=== PATIENT | female | born 1940 | race Caucasian/White ===

== ENCOUNTER 2017-11-25 20:36 | Inpatient (IN) | payer OTHER ==
[2017-11-25] MEDS ORDERED: HEPARIN 5000 UNIT/ML 1 ML VIAL ONE (20:43)
[2017-11-25] MEDS ORDERED: ADENOSINE 6 MG/ 2ML VIAL IV ONE ×2 (20:44→20:46)
[2017-11-25] MEDS ORDERED: ONDANSETRON 4 MG/2 ML VIAL ONE (20:48)
[2017-11-25] MEDS ORDERED: MORPHINE 4 MG/ML SYR ONE (20:48)
[2017-11-25] MEDS ORDERED: VERAPAMIL HCL 5 MG/2 ML VIAL IV ONE (20:50)
[2017-11-25] MEDS ORDERED: NA CHLORIDE 0.9% 0 ML ONE (20:54)
[2017-11-25] MEDS ORDERED: MIDAZOLAM HCL 2 MG/2 ML INJ ONE (20:56)
[2017-11-25 20:57] LABS: Absolute Lymphocytes (CBC) 4.5 K/uL (0.7-4.9); Absolute Neutrophil 4.5 K/uL (1.8-8.0); Basophils % 0.6 % (0-1.3); Eosinophils % 1.3 % (0-4.4); Hematocrit 39.2 % (36.0-45.0); Lymphocytes % 44.2 % (15.3-44.8); MCH 31.3 pg (27.0-35.0); MCV 92.7 fL (80-100); MPV 8.3 fL (7.6-11.3); Monocytes % 9.9 % (3.3-12.3); RBC Red Blood Cell Count 4.23 M/uL (3.86-4.86)
[2017-11-25 21:03] LABS: Protime INR 0.95
[2017-11-25] MEDS ORDERED: METOPROLOL TARTRATE 5 MG/5 ML INJ IV ONE (21:03)
[2017-11-25] MEDS ORDERED: HEPARIN/D5W 25,000 UNIT/500 ML BAG IV ONE (21:16)
--- NOTE | 2017-11-25 21:22 | EDPHYS ---
Physician Documentation [facility] Name: Sherrell Palma Age: 77 yrs Sex: Female : 1940 Arrival Date: 11/25/2017 Time: 20:40 Bed 4 Private MD: ED Physician Gera Acosta HPI: 11/25 21:17 This 77 yrs old Female presents to ER via EMS with unknown complaint. pkl 21:17 The patient or guardian reports chest pain that is located primarily in the substernal pkl area. Onset: just prior to arrival, 1 hour(s) ago. The patient presents with a history of heart racing. Context: The symptoms occur at rest. Onset: The symptoms/episode began/occurred just prior to arrival, 1 hour(s) ago. The pain radiates to jaw. Historical: - Allergies: 21:05 Amoxicillin; bb 21:05 metformin; bb 21:05 Niacin; bb 21:05 WelChol; bb 21:05 Zocor; bb 21:05 PENICILLINS; bb - PMHx: 21:05 Hypertension; SVT; Diabetes - NIDDM; breast cancer; GERD; Hyperlipidemia; bb - PSHx: 21:05 R mastectomy; Thyroidectomy; bb - Immunization history:: Adult Immunizations unknown. - Social history:: Smoking status: unknown. - Ebola Screening: : No symptoms or risks identified at this time. ROS: 21:17 Eyes: Negative for injury, pain, redness, and discharge, ENT: Negative for injury, pkl pain, and discharge, Neck: Negative for injury, pain, and swelling. 21:17 Cardiovascular: Positive for chest pain, palpitations. 21:17 Respiratory: Negative for cough, shortness of breath. 21:17 Abdomen/GI: Negative for abdominal pain, nausea, vomiting, and diarrhea. 21:17 Back: Negative for acute changes. 21:17 : Negative for urinary symptoms. 21:17 MS/extremity: Negative for acute changes. 21:17 Skin: Negative for rash. 21:17 Neuro: Negative for altered mental status. Exam: 21:17 Head/Face: Normocephalic, atraumatic. Eyes: Pupils equal round and reactive to light, pkl extra-ocular motions intact. Lids and lashes normal. Conjunctiva and sclera are non-icteric and not injected. Cornea within normal limits. Periorbital areas with no swelling, redness, or edema. ENT: Nares patent. No nasal discharge, no septal abnormalities noted. Tympanic membranes are normal and external auditory canals are clear. Oropharynx with no redness, swelling, or masses, exudates, or evidence of obstruction, uvula midline. Mucous membranes moist. Neck: Trachea midline, no thyromegaly or masses palpated, and no cervical lymphadenopathy. Supple, full range of motion without nuchal rigidity, or vertebral point tenderness. No Meningismus. Chest/axilla: Normal chest wall appearance and motion. Nontender with no deformity. No lesions are appreciated. 21:17 Cardiovascular: Rate: tachycardic, actual rate is 178 bpm, Rhythm: regular. 21:17 ECG was reviewed by the Attending Physician. 21:17 Respiratory: the patient does not display signs of respiratory distress, Respirations: normal, Breath sounds: are clear throughout. 21:17 Abdomen/GI: Exam negative for acute changes. 21:17 Back: Exam negative for acute changes. 21:17 : Exam negative for acute changes. 21:17 Musculoskeletal/extremity: Exam is negative for acute changes. 21:17 Skin: Exam negative for rash. 21:17 Neuro: Orientation: is normal, Mentation: appropriate for stated age, Cranial nerves: grossly normal, Motor: is normal. Vital Signs: 20:40 BP 115 / 65; Pulse 178; Resp 22 S; Temp 97.8(O); Pulse Ox 94% on R/A; Weight 81.65 kg bb (R); Height 5 ft. 6 in. (167.64 cm) (R); 20:50 BP 97 / 76; Pulse 170; Resp 19; Pulse Ox 94% on 4 lpm NC; lp1 21:00 BP 135 / 82; Pulse 96; Resp 18; Pulse Ox 90% on 4 lpm NC; lp1 21:05 BP 144 / 104; Pulse 127; Resp 19; Pulse Ox 97% on 50% Venturi mask; lp1 21:15 BP 155 / 95; Pulse 80; Resp 19; Pulse Ox 100% on 50% Venturi mask; lp1 21:20 BP 137 / 80; Pulse 83; Resp 18; Pulse Ox 100% on 50% Venturi mask; lp1 21:40 Weight 68.04 kg; lp1 21:40 BP 149 / 78; Pulse 88; Resp 14; Pulse Ox 96% on 50% Venturi mask; lp1 22:03 BP 130 / 78; Pulse 88; Resp 17; Pulse Ox 98% on 50% Venturi mask; lp1 22:31 BP 154 / 86; Pulse 95; Resp 20; Pulse Ox 100% on 50% Venturi mask; lp1 21:40 Body Mass Index 24.21 (68.04 kg, 167.64 cm) lp1 MDM: 21:06 Patient medically screened. pkl 21:17 Data reviewed: vital signs, nurses notes, lab test result(s), EKG, radiologic studies, pkl plain films. 11/25 20:44 Order name: Basic Metabolic Panel; Complete Time: 22:06 cc 11/25 20:44 Order name: CBC with Diff; Complete Time: 21:07 cc 11/25 20:44 Order name: Ckmb; Complete Time: 22:06 cc 11/25 20:44 Order name: CPK; Complete Time: 22:06 cc 11/25 20:44 Order name: LFT's; Complete Time: 22: cc 11/25 20:44 Order name: Magnesium; Complete Time: 22:06 cc 11/25 20:44 Order name: NT PRO-BNP; Complete Time: 22:06 cc 11/25 20:44 Order name: PT-INR; Complete Time: 21:07 cc 11/25 20:44 Order name: Ptt, Activated; Complete Time: 21:07 cc 11/25 20:44 Order name: Troponin (emerg Dept Use Only); Complete Time: 21:22 cc 11/25 20:44 Order name: XRAY Chest (1 view) cc 11/25 21:02 Order name: TSH; Complete Time: 22:06 ms 11/25 21:46 Order name: ABG Arterial Blood Gas; Complete Time: 22:06 EDMS 11/25 22:34 Order name: Urine Dipstick--Ancillary (enter results) ms 11/25 20:44 Order name: EKG; Complete Time: 20:45 cc 11/25 20:44 Order name: Cardiac monitoring; Complete Time: 20:45 cc 11/25 20:44 Order name: EKG - Nurse/Tech; Complete Time: 20:45 cc 11/25 20:44 Order name: IV Saline Lock; Complete Time: 20:45 cc 11/25 20:44 Order name: Labs collected and sent; Complete Time: 20:45 cc 11/25 20:44 Order name: O2 Per Protocol; Complete Time: 20:45 cc 11/25 20:44 Order name: O2 Sat Monitoring; Complete Time: 20:44 cc 11/25 20:44 Order name: Urine Dipstick-Ancillary (obtain specimen); Complete Time: 22:32 cc 11/25 22:32 Order name: Herrera; Complete Time: 22:32 lp1 Administered Medications: 20:45 Drug: Adenosine 12 mg Route: IVP; Site: left antecubital; lp1 21:37 Follow up: Response: No change in condition lp1 20:47 Drug: Zofran 4 mg Route: IVP; Site: left antecubital; lp1 21:37 Follow up: Response: No adverse reaction lp1 20:47 Drug: morphine 2 mg Route: IVP; Site: left antecubital; lp1 21:38 Follow up: Response: No adverse reaction lp1 20:48 Drug: Verapamil 5 mg Route: IVP; Site: left antecubital; lp1 20:50 Follow up: Response: Marked relief of symptoms lp1 21:00 Drug: Lopressor 5 mg Route: IVP; Site: left antecubital; lp1 21:39 Follow up: Response: Marked relief of symptoms lp1 21:07 Drug: Heparin (VT-Bolus No thrombolytic) - HEParin 60 units/kg Route: IVP; Site: left lp1 antecubital; 21:44 Follow up: Response: No adverse reaction lp1 21:11 Drug: Heparin (VT Drip) 12 units/kg/hr - (HEParin 95436 units, D5W 500 ml) Route: IV; lp1 Rate: calculated rate; Site: left forearm; 21:44 Follow up: IV Status: Infusion continued upon admission lp1 Disposition: 21:17 Critical Care:. pkl Disposition: 11/25/17 21:22 Hospitalization ordered by Fariba Hanks for Inpatient Admission. Preliminary diagnosis is Chest pain. Supraventricular tachycardia. - Bed requested for Intensive Care Unit. - Status is Inpatient Admission. lp1 - Condition is Stable. - Problem is new. - Symptoms have improved. UTI on Admission? No Signatures: Dispatcher [employer] EDLiyah Rodriguez RN RN mw Lam, Pin, MD MD pkl Yue Alexandra, RN RN bb Kenia Johnston Ayla Kendall RN RN lp1 Corrections: (The following items were deleted from the chart) 21:41 21:22 Hospitalization Ordered by Fariba Hanks MD for Inpatient Admission. Preliminary mw diagnosis is Chest pain. Supraventricular tachycardia. Bed requested for Telemetry/MedSurg (Inpatient). Status is Inpatient Admission. Condition is Stable. Problem is new. Symptoms have improved. UTI on Admission? No. pkl 22:37 21:41 11/25/2017 21:22 Hospitalization Ordered by Fariba Hanks MD for Inpatient lp1 Admission. Preliminary diagnosis is Chest pain. Supraventricular tachycardia. Bed requested for Intensive Care Unit. Status is Inpatient Admission. Condition is Stable. Problem is new. Symptoms have improved. UTI on Admission? No. mw
--- NOTE | 2017-11-25 21:22 | ER ---
Nurse's Notes [facility] Name: Sherrell Palma Age: 77 yrs Sex: Female : 1940 Arrival Date: 11/25/2017 Time: 20:40 Bed 4 Private MD: Diagnosis: Chest pain. Supraventricular tachycardia Presentation: 11/25 20:40 Presenting complaint: EMS states: toned out for report of pt having palpitations, bb racing heart. Transition of care: patient was not received from another setting of care. Onset of symptoms was November 25, 2017. Risk Assessment: Do you want to hurt yourself or someone else? Patient reports no desire to harm self or others. Initial Sepsis Screen: Does the patient meet any 2 criteria? No. Patient's initial sepsis screen is negative. Does the patient have a suspected source of infection? No. Patient's initial sepsis screen is negative. 20:40 Method Of Arrival: EMS: [facility] bb 20:40 Acuity: LUCY 1 bb 20:59 Care prior to arrival: Medication(s) given: Adenosine, 6 mg, 12 mg, x 2, ASA, 325 mg, bb Normal saline infusion, 500 mL, IV initiated. 20 GA, in the left antecubital area. Historical: - Allergies: 21:05 Amoxicillin; bb 21:05 metformin; bb 21:05 Niacin; bb 21:05 WelChol; bb 21:05 Zocor; bb 21:05 PENICILLINS; bb - PMHx: 21:05 Hypertension; SVT; Diabetes - NIDDM; breast cancer; GERD; Hyperlipidemia; bb - PSHx: 21:05 R mastectomy; Thyroidectomy; bb - Immunization history:: Adult Immunizations unknown. - Social history:: Smoking status: unknown. - Ebola Screening: : No symptoms or risks identified at this time. Screenin:05 Abuse screen: Denies threats or abuse. Nutritional screening: No deficits noted. bb Tuberculosis screening: No symptoms or risk factors identified. 22:00 Fall Risk Total [place] Fall Scale indicates High Risk Score (45 or more points). Fall lp1 prevention measures have been instituted. Side Rails Up X 2 As available patient and family educated on Fall Prevention Program and Strategies. Assessment: 20:45 General: Appears distressed, Behavior is quiet. Pain: Complains of pain in chest. lp1 Neuro: Level of Consciousness is awake, lethargic, Oriented to person, place, situation. Cardiovascular: Reports chest pain, fatigue, nausea, palpitations, shortness of breath, Capillary refill < 3 seconds in bilateral fingers toes Rhythm is SVT. Respiratory: Reports shortness of breath Airway is patent Trachea midline Respiratory effort is even, Respiratory pattern is regular, Breath sounds are clear bilaterally. GI: Abdomen is obese. : No signs and/or symptoms were reported regarding the genitourinary system. EENT: No signs and/or symptoms were reported regarding the EENT system. Derm: Skin is intact, is thin, Skin is diaphoretic, Skin is pale. 21:30 Reassessment: Patient states " I feel exhausted"; states chest pain has decreased lp1 Patient states feeling better. Neuro: Level of Consciousness is awake, obeys commands. Respiratory: Respiratory effort is even, unlabored. Derm: Skin is intact, Skin is dry, Skin is normal. Musculoskeletal: Circulation, motion, and sensation intact. 22:30 Reassessment: Per Dr. Koehler, verbal order to discontinue heparin drip. Reassessment: lp1 Patient appears in no apparent distress at this time. Patient and/or family updated on plan of care and expected duration. Pain level reassessed. Patient aware of admission to ICU, continuing to states "I feel so exhausted". Vital Signs: 20:40 BP 115 / 65; Pulse 178; Resp 22 S; Temp 97.8(O); Pulse Ox 94% on R/A; Weight 81.65 kg bb (R); Height 5 ft. 6 in. (167.64 cm) (R); 20:50 BP 97 / 76; Pulse 170; Resp 19; Pulse Ox 94% on 4 lpm NC; lp1 21:00 BP 135 / 82; Pulse 96; Resp 18; Pulse Ox 90% on 4 lpm NC; lp1 21:05 BP 144 / 104; Pulse 127; Resp 19; Pulse Ox 97% on 50% Venturi mask; lp1 21:15 BP 155 / 95; Pulse 80; Resp 19; Pulse Ox 100% on 50% Venturi mask; lp1 21:20 BP 137 / 80; Pulse 83; Resp 18; Pulse Ox 100% on 50% Venturi mask; lp1 21:40 Weight 68.04 kg; lp1 21:40 BP 149 / 78; Pulse 88; Resp 14; Pulse Ox 96% on 50% Venturi mask; lp1 22:03 BP 130 / 78; Pulse 88; Resp 17; Pulse Ox 98% on 50% Venturi mask; lp1 22:31 BP 154 / 86; Pulse 95; Resp 20; Pulse Ox 100% on 50% Venturi mask; lp1 21:40 Body Mass Index 24.21 (68.04 kg, 167.64 cm) lp1 ED Course: 20:30 Maintain EMS IV. Dressing intact. Good blood return noted. Site clean \\T\\ dry. Gauge \\T\\ lp 1 site: 20 g Left AC. 20:40 Patient arrived in ED. bb 20:40 Arm band placed on Patient placed in an exam room, on a stretcher, on oxygen, on bb satellite project site monitor, on pulse oximetry. EKG completed in triage. Results shown to MD. 20:40 Patient has correct armband on for positive identification. Placed in gown. Bed in low bb position. Side rails up X2. awake overnight monitor on. Pulse ox on. NIBP on. 20:55 Triage completed. bb 21:03 X-ray completed. Portable x-ray completed in exam room. Patient tolerated procedure ag1 well. 21:04 XRAY Chest (1 view) In Process Unspecified. EDMS 21:06 Gera Acosta MD is Attending Physician. pkl 21:10 Inserted saline lock: 20 gauge in left forearm, using aseptic technique. lp1 21:21 Fariba Hanks MD is Hospitalizing Provider. pkl 21:35 Ayla Kendall, EDDY is Primary Nurse. lp1 21:51 No provider procedures requiring assistance completed. Patient admitted, IV remains in lp1 place. 22:29 Herrera cath inserted, using sterile technique, 16 Fr., by ks, balloon inflated, to lp1 gravity drainage, urine specimen collected. Administered Medications: 20:45 Drug: Adenosine 12 mg Route: IVP; Site: left antecubital; lp1 21:37 Follow up: Response: No change in condition lp1 20:47 Drug: Zofran 4 mg Route: IVP; Site: left antecubital; lp1 21:37 Follow up: Response: No adverse reaction lp1 20:47 Drug: morphine 2 mg Route: IVP; Site: left antecubital; lp1 21:38 Follow up: Response: No adverse reaction lp1 20:48 Drug: Verapamil 5 mg Route: IVP; Site: left antecubital; lp1 20:50 Follow up: Response: Marked relief of symptoms lp1 21:00 Drug: Lopressor 5 mg Route: IVP; Site: left antecubital; lp1 21:39 Follow up: Response: Marked relief of symptoms lp1 21:07 Drug: Heparin (MT-Bolus No thrombolytic) - HEParin 60 units/kg Route: IVP; Site: left lp1 antecubital; 21:44 Follow up: Response: No adverse reaction lp1 21:11 Drug: Heparin (MT Drip) 12 units/kg/hr - (HEParin 34547 units, D5W 500 ml) Route: IV; lp1 Rate: calculated rate; Site: left forearm; 21:44 Follow up: IV Status: Infusion continued upon admission lp1 Outcome: 21:22 Decision to Hospitalize by Provider. pkl 21:51 Instructed on the need for admit. lp1 22:00 critical lp1 22:31 Admitted to ICU accompanied by nurse, accompanied by tech, via stretcher, room 7, with lp1 oxygen, on monitor, with chart, Report called to EDDY Pacheco 22:37 Patient left the ED. lp1 Signatures: Dispatcher [employer] EDGera Burciaga MD MD pkYue Sharpe, EDDY RN Ayla Perdomo RN RN lp1 Daisy Hardwick 1
[2017-11-25 21:27] LABS: ALT/SGPT 21 U/L (12-78); AST/SGOT 22 U/L (15-37); Albumin 3.6 g/dL (3.4-5.0); Alkaline Phosphatase 101 U/L (45-117); BUN Blood Urea Nitrogen 29 mg/dL (7-18); Bicarbonate 26 mmol/L (21-32); Bilirubin Direct < 0.1 mg/dL (0-0.2); Bilirubin Total 0.3 mg/dL (0.2-1.0); CKMB Creatine Kinase MB < 1.0 ng/mL (0.3-3.6); Creatine Phosphokinase 47 U/L (26-192); Glucose Level 271 mg/dL (74-106); Magnesium 1.8 mg/dL (1.8-2.4); NT PRO-BNP 152 pg/mL (<450); Potassium 4.6 mmol/L (3.5-5.1); Protein, Total 7.8 g/dL (6.4-8.2); Sodium Level 139 mmol/L (136-145)
[2017-11-25 21:43] LABS: Blood Gas Oxyhemoglobin 95.5 % (94-97); Blood O2 Saturation 97.5 % (92-98.5)
--- NOTE | 2017-11-25 21:59 | P.HP ---
Certification for Inpatient Patient admitted to: Inpatient With expected LOS: >2 Midnights Practitioner: I am a practitioner with admitting privileges, knowledge of patient current condition, hospital course, and medical plan of care. Services: Services provided to patient in accordance with Admission requirements found in Title 42 Section 412.3 of the Code of Federal Regulations Patient History Date of Service: 11/25/17 Reason for admission: SVT, Subendocardic ischemia History of Present Illness: Ms Palma is a 77 years old woman with history of HTN, breast cancer, DM II, SVT epoisode in 2014, had a negative NM stress test at that time, who started this morning with recurrent episodes of palpitation, which were self limited. 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 Then she called 911, EMS found the patient tachycardic, subsequently she was transferred to ED. EKG showed SVT at 178 bpm. She had failed attempt to convert with 6 mg and then 12 mg of adenosine. Also tried metoprolol I but was unsuccessful. Finally she got successfully cardioverted, obtaining SR at 80's bpm. Initial trop I is negative. Her chest pain improved after CV. However, EKG port CV is remarkable for ST depression in inferolateral leads. Allergies amoxicillin Allergy (Mild, Verified 11/15/14 17:10) Hives/Rash colesevelam HCl [From WelChol] Allergy (Mild, Verified 11/15/14 17:10) diarrhea niacin Allergy (Mild, Verified 11/15/14 17:10) Nausea/Vomiting Penicillins Allergy (Mild, Verified 11/15/14 17:06) Hives/Rash simvastatin [From Zocor] Allergy (Mild, Verified 11/15/14 17:10) generalized pain Home medications list reviewed: Yes Home Medications: Glimepiride 4 mg PO BID 11/15/14 Loperamide [Imodium*] 2 mg PO PRN PRN 11/15/14 Metoprolol Succinate [Toprol Xl] 50 mg PO BID 11/15/14 Olmesartan Medoxomil [Benicar] 40 mg PO DAILY 11/15/14 - Past Medical/Surgical History Diabetic: Yes -: NIDDM -: A-FIB -: CANCER- RIGHT BREAST -: HYPERTENSION -: SHANE -: HYSTERECTOMY -: R SIDE MASTECTOMY -: APPENDECTOMY -: R EYE CATARACT SX -: PARTIAL THYROID REMOVAL - Family History Mother -: Heart disease Notes: unknown heart condition- was in her 80s when she . - Social History Smoking Status: Never smoker Alcohol use: No CD- Drugs: No Caffeine use: Yes Place of Residence: Home Review of Systems 10-point ROS is otherwise unremarkable Physical Examination - Physical Exam General: Alert, In no apparent distress HEENT: Atraumatic, PERRLA, Mucous membr. moist/pink, EOMI, Sclerae nonicteric Neck: Supple, 2+ carotid pulse no bruit, No LAD, Without JVD or thyroid abnormality Respiratory: Clear to auscultation bilaterally, Normal air movement Cardiovascular: Regular rate/rhythm, Normal S1 S2 Gastrointestinal: Normal bowel sounds, No tenderness Musculoskeletal: No tenderness Integumentary: No rashes Neurological: Normal speech, Normal strength at 5/5 x4 extr, Normal tone, Normal affect Lymphatics: No axilla or inguinal lymphadenopathy - Studies Laboratory Data (last 24 hrs) 11/25/17 20:35: PT 11.2, INR 0.95, APTT 25.0 11/25/17 20:35: WBC 10.2, Hgb 13.2, Hct 39.2, Plt Count 252 11/25/17 20:35: Sodium 139, Potassium 4.6, BUN 29 H, Creatinine 1.20, Glucose 271 H, Magnesium 1.8, Total Bilirubin 0.3, AST 22, ALT 21, Alkaline Phosphatase 101 Assessment and Plan - Problems (Diagnosis) (1) Subendocardial ischemia Current Visit: Yes Status: Acute (2) HTN (hypertension) Current Visit: Yes Status: Acute Qualifiers: Hypertension type: essential hypertension Qualified Code(s): I10 - Essential (primary) hypertension (3) Diabetes mellitus Current Visit: Yes Status: Acute Qualifiers: Diabetes mellitus type: type 2 Diabetes mellitus usp insulin use: without usp use Diabetes mellitus complication status: with unspecified complications Qualified Code(s): E11.8 - Type 2 diabetes mellitus with unspecified complications (4) SVT (supraventricular tachycardia) Current Visit: Yes Status: Acute - Plan The patient will be admitted to ICU for close monitoring, due to SVT with subendocardic ischemia. Will start full anticoagulation, double antiplatelets treatment, beta jennifer, PRANEETH inhibitors. Consult Cardiology team for evaluation and recommendations. - Advance Directives Does patient have a Living Will: No Does patient have a Durable POA for Healthcare: No - Code Status/Comfort Care Code Status Assessed: Yes Code Status: Full Code
[2017-11-25] MEDS ORDERED: D50W 25 GM/50 ML SYRINGE IV PRN (22:05)
[2017-11-25] MEDS ORDERED: GLUCAGON 1 MG/VIAL IM PRN (22:05)
[2017-11-25 22:58] LABS: Urine Blood NEGATIVE (NEG); Urine Glucose 2+ (NEG); Urine Protein NEGATIVE (NEG)
[2017-11-25] MEDS: INSULIN -REGULAR HUMAN 50 UNIT/0.5 ML ML SQ SCH (23:50)
[2017-11-26] MEDS: NITROGLYCERIN 0.4 MG/TAB SL PRN ×3 (01:40→01:51)
[2017-11-26] MEDS: INSULIN -REGULAR HUMAN 50 UNIT/0.5 ML ML SQ SCH ×3 (06:00→17:54)
--- NOTE | 2017-11-26 06:49 | EKG ---
Test Date: 2017-11-25 Test Time: 20:32:46 Iron Cutter: ALFONSO MEASUREMENT RESULTS: Intervals: Rate: 180 FL: QRSD: 80 QT: 258 QTc: 446 Onward: P: FL: QRS: 20 T: 131 INTERPRETIVE STATEMENTS: Supraventricular tachycardia ST elevation, consider inferior injury or acute infarct ACUTE [place] Abnormal ECG Compared to ECG 11/16/2014 08:58:03 ST (T wave) deviation now present Myocardial infarct finding now present Sinus rhythm no longer present Electronically Signed On 11-26-17 06:48:17 CDT by Galo Razo
--- NOTE | 2017-11-26 07:10 | RAD REPORT ---
EXAM DESCRIPTION: RAD - Chest Single View - 11/25/2017 9:05 pm CLINICAL HISTORY: Chest pain, cardiac arrhythmia COMPARISON: November 2010 TECHNIQUE: AP portable chest image was obtained 2051 hours . FINDINGS: Shallow inspiration accentuates vasculature and lung markings. No focal infiltrate or sign ificant pulmonary edema seen. No significant failure or volume overload. Resuscitation paddles overli e the chest. Heart and vasculature are normal. No measurable pleural effusion and no pneumothorax. In creased density medial left apex is believed to be artifact of rotation. No acute aortic findings olga pected. IMPRESSION: Shallow inspiration exam without a significant cardiopulmonary finding. Exam is limited by rotation, supine positioning and shallow inspiration.
[2017-11-26] MEDS: METOPROLOL XL 50 MG TAB PO SCH ×2 (08:32→22:43)
[2017-11-26] MEDS: VALSARTAN 80 MG TAB PO SCH (08:35)
[2017-11-26] MEDS: TICAGRELOR 90 MG TABLET PO SCH ×2 (08:35→20:43)
[2017-11-26] MEDS ORDERED: VALSARTAN 160 MG TAB PO SCH (09:00)
[2017-11-26] MEDS ORDERED: LISINOPRIL 10 MG TAB PO SCH (09:00)
[2017-11-26] MEDS ORDERED: ASPIRIN 325 MG TAB PO SCH (09:00)
[2017-11-26] MEDS ORDERED: ENOXAPARIN 80 MG/0.8 ML SQ SCH (09:00)
[2017-11-26] MEDS: ONDANSETRON 4 MG/2 ML VIAL IV PRN ×2 (09:12→16:09)
[2017-11-26] MEDS: ACETAMINOPHEN 325 MG TABLET PO PRN ×3 (09:12→20:52)
[2017-11-26] MEDS: ASPIRIN 81 MG CHEWABLE TABLET PO SCH (09:13)
[2017-11-26] MEDS ORDERED: HYDRALAZINE HCL 20 MG/ML VIAL IV PRN (10:17)
[2017-11-26] MEDS: ENOXAPARIN 80 MG/0.8 ML SQ SCH ×2 (10:28→20:44)
--- NOTE | 2017-11-26 10:29 | EKG ---
Test Date: 2017-11-25 Test Time: 21:31:02 Supervisor Cigar Processing: MEASUREMENT RESULTS: Intervals: Rate: 86 [place]: 234 QRSD: 86 QT: 400 QTc: 478 [place]: P: 43 [place]: 234 QRS: -50 T: 17 INTERPRETIVE STATEMENTS: Sinus rhythm with 1st degree AV block Left anterior fascicular block Possible Anterior infarct, age undetermined Marked ST abnormality, possible inferolateral subendocardial injury Abnormal ECG Compared to ECG 11/25/2017 20:32:46 First degree AV block now present Left anterior fascicular block now present Supraventricular tachycardia no longer present Myocardial infarct finding still present ST (T wave) deviation still present Electronically Signed On 11-26-17 10:28:16 CDT by Galo Razo
--- NOTE | 2017-11-26 11:40 | CON ---
Identification: A 77-year-old woman. Chief Complaint: Chest pain. History Of Present Illness: Ms. Palma ran out of medicines. She went into a rapid heart rate. She was found to have SVT or perhaps atrial flutter with 2:1 conduction. Heart rate was 170. There wer e marked ST changes including ST elevation in II, III, and AVF. Presently today she is having a head ache. No chest pain. Her arrhythmia resolved with beta blockers and adenosine. She is in sinus rhy thm now. No longer having chest pain. Her troponins are very elevated 8.86, 21.5. Ms. Palma has n ot had a heart catheterization before. No known heart disease. She has underlying diabetes, hyperte nsion, dyslipidemia. She does not use tobacco. She is definitely a candidate for CAD. Medications: Her outpatient medications have been metoprolol, Benicar, glimepiride, and loperamide. She apparently ran out of all of these medicines 2 weeks before this admission. Physical Examination: Vital Signs: 4 feet 11 inches, 177 pounds. HEENT: Unremarkable. Lungs: Clear. Heart: Regular rate and rhythm. An EKG today does not show ST elevation. It shows sinus rhythm. She is presently receiving Brilinta, valsartan, nitroglycerin, metoprolol, enoxaparin, aspirin. Impression: The patient just has had an myocardial infarction, may be from fixed coronary artery dis ease with a very rapid heart rate from the arrhythmia. It may be all from the arrhythmia. She needs to have a cardiac cath tomorrow. She seems to understand the procedure, potential benefits, indications, ris ks, and agrees to proceed. BRENDA/RADHA Voice ID: [id number] Report ID: [id number]
--- NOTE | 2017-11-26 12:11 | P.PN ---
Subjective Date of Service: 11/26/17 Chief Complaint: SVT, Subendocardic ischemia she is still havimng mild chest discomfort, no SOB Physical Examination - Vital Signs Temperature: 97.7 F Blood Pressure: 192/82 Pulse: 73 Respirations: 18 Pulse Ox (%): 99 - Physical Exam General: Alert, In no apparent distress HEENT: Atraumatic, PERRLA, EOMI Neck: Supple, JVD not distended Respiratory: Clear to auscultation bilaterally, Normal air movement Cardiovascular: Regular rate/rhythm, Normal S1 S2 Gastrointestinal: Normal bowel sounds, No tenderness Musculoskeletal: No tenderness Integumentary: No rashes Neurological: Normal speech, Normal tone, Normal affect Lymphatics: No axilla or inguinal lymphadenopathy - Studies Laboratory Data (last 24 hrs) 11/25/17 20:35: PT 11.2, INR 0.95, APTT 25.0 11/25/17 20:35: WBC 10.2, Hgb 13.2, Hct 39.2, Plt Count 252 11/25/17 20:35: Sodium 139, Potassium 4.6, BUN 29 H, Creatinine 1.20, Glucose 271 H, Magnesium 1.8, Total Bilirubin 0.3, AST 22, ALT 21, Alkaline Phosphatase 101 Medications List Reviewed: Yes Assessment And Plan - Current Problems (Diagnosis) (1) Subendocardial ischemia Onset Date: 11/26/17 Current Visit: Yes Status: Acute (2) Diabetes mellitus Onset Date: 11/26/17 Current Visit: Yes Status: Acute Qualifiers: Diabetes mellitus type: type 2 Diabetes mellitus longterm insulin use: without longterm use Diabetes mellitus complication status: with unspecified complications Qualified Code(s): E11.8 - Type 2 diabetes mellitus with unspecified complications (3) HTN (hypertension) Onset Date: 11/26/17 Current Visit: Yes Status: Acute Qualifiers: Hypertension type: essential hypertension Qualified Code(s): I10 - Essential (primary) hypertension (4) SVT (supraventricular tachycardia) Onset Date: 11/26/17 Current Visit: Yes Status: Acute (5) Afib Onset Date: 11/16/14 Current Visit: No Status: Acute (6) Chest pain Onset Date: 11/16/14 Current Visit: No Status: Acute - Plan She seems to have VT PLANS: --ASA --Full dose Lovenex --Beta blockers/PRANEETH-I --Cons Dr Razo --Cath tomorrow per Dr Razo
--- NOTE | 2017-11-26 12:15 | ECHO ---
HEIGHT: 4 ft 11 in WEIGHT: 177 lb 8 oz DATE OF STUDY: 11/26/[address]: Fariba Koehler MD 2-DIMENSIONAL: YES M.MODE: YES DOPPLER: YES COLOR FLOW: YES TDS: NO PORTABLE: YES DEFINITY: NO BUBBLE STUDY: NO DIAGNOSIS: SUBENDOCARDIAC ISCHEMIA CARDIAC HISTORY: CATHERIZATION: NO SURGERY: NO PROSTHETIC VALVE: NO PACEMAKER: NO MEASUREMENTS (cm) DIASTOLIC (NORMALS) SYSTOLIC (NORMALS) IVSd 1.0 (0.6-1.2) LA Diam 3.5 (1.9-4.0) LVEF 61% LVIDd 3.4 (3.5-5.7) LVIDs 2.3 (2.0-3.5) %FS 32% LVPWd 1.0 (0.6-1.2) Ao Diam 2.8 (2.0-3.7) 2 DIMENSIONAL ASSESSMENT: RIGHT ATRIUM: NORMAL LEFT ATRIUM: NORMAL RIGHT VENTRICLE: NORMAL LEFT VENTRICLE: NORMAL TRICUSPID VALVE: NORMAL MITRAL VALVE: NORMAL PULMONIC VALVE: NORMAL AORTIC VALVE: NORMAL PERICARDIAL EFFUSION: NONE AORTIC ROOT: NORMAL LEFT VENTRICULAR WALL MOTION: NORMAL DOPPLER/COLOR FLOW: TRACE TRICUSPID REGURGITATION. NORMAL VENTRICULAR SIZE AND FUNCTION. COMMENTS: NORMAL LEFT VENTRICLAR SIZE AND FUNCTION. NO WALL MOTION ABNORMALITY. TRACE TRICUSPID REGURGITATION. NORMAL VENTRICULAR SIZE AND FUNCTION. TECHNOLOGIST: Jo Ann MCFADDEN
--- NOTE | 2017-11-26 20:31 | EKG ---
Test Date: 2017-11-26 Test Time: 09:59:14 Power Plant Installer: SERGIO MEASUREMENT RESULTS: Intervals: Rate: 67 [place]: 154 QRSD: 72 QT: 434 QTc: 458 [place]: P: 45 [place]: 154 QRS: -13 T: 36 INTERPRETIVE STATEMENTS: Normal sinus rhythm Normal ECG Compared to ECG 11/25/2017 21:31:02 First degree AV block no longer present Left anterior fascicular block no longer present Myocardial infarct finding no longer present ST (T wave) deviation no longer present Electronically Signed On 11-26-17 20:30:19 CDT by Galo Razo
[2017-11-27] MEDS: INSULIN -REGULAR HUMAN 50 UNIT/0.5 ML ML SQ SCH ×4 (06:00→17:04)
[2017-11-27] MEDS: METOPROLOL XL 50 MG TAB PO SCH ×2 (07:59→21:22)
[2017-11-27] MEDS: ONDANSETRON 4 MG/2 ML VIAL IV PRN (07:59)
[2017-11-27] MEDS: VALSARTAN 80 MG TAB PO SCH (08:00)
[2017-11-27] MEDS: ASPIRIN 81 MG CHEWABLE TABLET PO SCH (08:31)
[2017-11-27] MEDS: TICAGRELOR 90 MG TABLET PO SCH ×2 (08:32→21:22)
[2017-11-27] MEDS: ENOXAPARIN 80 MG/0.8 ML SQ SCH (08:45)
[2017-11-27] MEDS: ACETAMINOPHEN 325 MG TABLET PO PRN (09:34)
[2017-11-27] MEDS ORDERED: HEPA 1000U/500MLS 1,000 UNIT/500 ML BAG IV ONE (10:01)
[2017-11-27] MEDS ORDERED: LIDOCAINE 1% MPF 2 ML AMPULE ONE (10:01)
[2017-11-27] MEDS ORDERED: NA CHLORIDE 0.9% 500 ML ONE (10:30)
[2017-11-27] MEDS ORDERED: ATROPINE SULF 1 MG/10 ML SYR IV ONE (10:30)
[2017-11-27] MEDS ORDERED: FENTANYL CITR 100 MCG/2 ML ONE (10:31)
[2017-11-27] MEDS ORDERED: MIDAZOLAM HCL 2 MG/2 ML INJ ONE (10:31)
[2017-11-27] MEDS ORDERED: NA CHLORIDE 0.9% 50 ML ONE (10:31)
[2017-11-27] MEDS ORDERED: PRASUGREL (EFFIENT) 10 MG TAB ONE (11:29)
[2017-11-27] MEDS ORDERED: ASPIRIN 325 MG TAB ONE (11:29)
--- NOTE | 2017-11-27 12:44 | P.PN ---
Subjective Date of Service: 11/27/17 Chief Complaint: SVT, Subendocardic ischemia Patient seen and examined at bedside with RN. Chart reviewed. Case discussed with cardiology at this time. Patient is awaiting cardiac catheterization today. Will followup post procedure. Patient denies having any chest pain shortness of breath or nausea vomiting at this time. Review of Systems General: As per HPI Physical Examination - Vital Signs Temperature: 97.9 F Blood Pressure: 165/98 Pulse: 55 Respirations: 12 Pulse Ox (%): 97 - Physical Exam General: Alert, In no apparent distress HEENT: Atraumatic, PERRLA, EOMI Neck: Supple, JVD not distended Respiratory: Clear to auscultation bilaterally, Normal air movement Cardiovascular: Regular rate/rhythm, Normal S1 S2 Gastrointestinal: Normal bowel sounds, No tenderness Musculoskeletal: No tenderness Integumentary: No rashes Neurological: Normal speech, Normal tone, Normal affect Lymphatics: No axilla or inguinal lymphadenopathy - Studies Medications List Reviewed: Yes Assessment & Plan - Problems (Diagnosis) (1) Subendocardial ischemia Onset Date: 11/26/17 Current Visit: Yes Status: Acute Plan: Patient with elevated Troponin and ST depression. -Cardiology consulted. Reccs appreciated -Scheduled for Cardiac Cath today -ECHO WNL -On BB, Statin, ASA, Lovenox and pt takes Brilinta at home as well. -Will f,u with patient Post procedure (2) SVT (supraventricular tachycardia) Onset Date: 11/26/17 Current Visit: Yes Status: Resolved Plan: S.P Resolution after Cardioversion -Will continue to monitor (3) Diabetes mellitus Onset Date: 11/26/17 Current Visit: Yes Status: Chronic Qualifiers: Diabetes mellitus type: type 2 Diabetes mellitus terminal carman insulin use: without custodial use Diabetes mellitus complication status: with unspecified complications Qualified Code(s): E11.8 - Type 2 diabetes mellitus with unspecified complications (4) HTN (hypertension) Onset Date: 11/26/17 Current Visit: Yes Status: Chronic Qualifiers: Hypertension type: essential hypertension Qualified Code(s): I10 - Essential (primary) hypertension (5) Afib Onset Date: 11/16/14 Current Visit: No Status: Chronic Qualifiers: Atrial fibrillation type: chronic Qualified Code(s): I48.2 - Chronic atrial fibrillation Discharge Plan: Home Plan to discharge in: 24 Hours - Code Status/Comfort Care Code Status Assessed: Yes Critical Care: Yes Assessment/Plan - Assessment/Plan Assessment: 77-year-old female admitted to the hospital for subendocardial ischemia. Cardiology consulted. Patient awaiting cardiac catheterization today. Plan: Will monitor patient closely. Will follow up post cardiac catheterization. Most likely patient discharge in next 24-48 hr depending on the results from heart catheterization.
[2017-11-27] MEDS ORDERED: ACETAMINOPHEN 325 MG TABLET PO PRN ×2 (13:23→14:00)
[2017-11-27] MEDS ORDERED: NA CHLORIDE 0.9% 1,000 ML IV SCH (14:00)
--- NOTE | 2017-11-27 23:00 | OP ---
Surgeon: Donal Zapien MD Access Clinician: Toño Magaña. History: Admitted to Dr. Soto's service. The patient had been admitted with SVT that had resolved, positive troponin. A catheterization was planned for today. The patient was brought into the labor relations consultant for heart catheterization and underwent selective coronary artery angiogram, left heart catheteri zation, and a primary stent of the proximal circumflex. Indication: Elevated troponin, subendocardial MD. Procedure In Detail: The patient was prepped and draped in the routine sterile fashion, given 2 mg o f Versed for IV sedation. A 6-Citizen [place] sheath was introduced in the right common femoral artery. A 6- [place] catheter of Claude was used on the left side. We used a 3.5 Claude 6-Citizen [place] to cannulate th e left main. She was found to have a 90% proximal circumflex. I had to use a modified Amplatz to ca nnulate the right coronary artery that was completely occluded. An XB3.0 with side-hole guide cathet er was used to cannulate the left main. A Harvey wire 0.14 exchanged. Extra-support was used to public health microbiologist ss the lesion. A 2.5 x 12 Synergy stent at 14 atmosphere was placed with 0% residual. Complications: There were no complications. Estimated Blood Loss: Blood loss was 5 cc. Sedation: Total conscious sedation was 45 minutes. Medications: The patient received Angiomax during the procedure, aspirin, as well as Effient 60 mg. Final Diagnoses: Coronary artery disease, total RCA; minimal coronary artery disease in the LAD; 90% circumflex stenosis, status post stent. Plan: Plan is to continue medical therapy including statin and Effient. She will probably be going home tomorrow. SKYLA/RADHA Voice ID: [id number] Report ID: [id number]
[2017-11-28 05:16] LABS: Absolute Lymphocytes (CBC) 1.7 K/uL (0.7-4.9); Absolute Monocytes 0.9 K/uL (0.1-1.3); Absolute Neutrophil 4.8 K/uL (1.8-8.0); Basophils % 0.5 % (0-1.3); Eosinophils % 1.4 % (0-4.4); Hematocrit 38.6 % (36.0-45.0); Lymphocytes % 22.3 % (15.3-44.8); MCH 31.6 pg (27.0-35.0); MCV 90.9 fL (80-100); MPV 7.8 fL (7.6-11.3); Monocytes % 11.7 % (3.3-12.3); RBC Red Blood Cell Count 4.25 M/uL (3.86-4.86)
[2017-11-28] MEDS ORDERED: DOXAZOSIN 2 MG TAB PO SCH (09:00)
[2017-11-28] MEDS ORDERED: LOSARTAN POTASSIUM 50 MG TABLET PO SCH (09:00)
[2017-11-28 09:19] LABS: Potassium 4.2 mmol/L (3.5-5.1)
[2017-11-28 09:20] VITALS: BMI 35.3
[2017-11-28] MEDS: METOPROLOL XL 50 MG TAB PO SCH (09:49)
[2017-11-28] MEDS: ASPIRIN 81 MG CHEWABLE TABLET PO SCH (09:49)
[2017-11-28] MEDS: TICAGRELOR 90 MG TABLET PO SCH (09:49)
[2017-11-28] MEDS: INSULIN -REGULAR HUMAN 50 UNIT/0.5 ML ML SQ SCH ×2 (11:37)
--- NOTE | 2017-11-28 11:44 | P.DS ---
Admission Date: 11/25/17 Discharge Date: 11/28/17 Disposition: ROUTINE DISCHARGE Discharge Condition: GOOD Reason for Admission: SVT, Subendocardic ischemia - Problems (1) Subendocardial ischemia Onset Date: 11/26/17 Current Visit: Yes Status: Acute (2) SVT (supraventricular tachycardia) Onset Date: 11/26/17 Current Visit: Yes Status: Resolved (3) Diabetes mellitus Onset Date: 11/26/17 Current Visit: Yes Status: Chronic Qualifiers: Diabetes mellitus type: type 2 Diabetes mellitus fpc insulin use: without fpc use Diabetes mellitus complication status: with unspecified complications Qualified Code(s): E11.8 - Type 2 diabetes mellitus with unspecified complications (4) HTN (hypertension) Onset Date: 11/26/17 Current Visit: Yes Status: Chronic Qualifiers: Hypertension type: essential hypertension Qualified Code(s): I10 - Essential (primary) hypertension (5) Afib Onset Date: 11/16/14 Current Visit: No Status: Chronic Qualifiers: Atrial fibrillation type: chronic Qualified Code(s): I48.2 - Chronic atrial fibrillation Brief History of Present Illness: Ms Palma is a 77 years old woman with history of HTN, breast cancer, DM II, SVT epoisode in 2014, had a negative NM stress test at that time, who started this morning with recurrent episodes of palpitation, which were self limited. The last one was about 1 hour [employer]NA ARCHITECT, it was longer than previous one, then she start having substernal chest pain, pressure like, 7-8 of intensity, associated with nausea, radiated to her jaw. Then she called 911, EMS found the patient tachycardic, subsequently she was transferred to ED. EKG showed SVT at 178 bpm. She had failed attempt to convert with 6 mg and then 12 mg of adenosine. Also tried metoprolol I but was unsuccessful. Finally she got successfully cardioverted, obtaining SR at 80's bpm. Initial trop I is negative. Her chest pain improved after CV. However, EKG port CV is remarkable for ST depression in inferolateral leads. Hospital Course: Overall during the hospital stay patient remained stable Patient was initially admitted to the hospital after she was found to have chest pain along with supraventricular tachycardia. Patient was cardioverted slowly in the ER and was then admitted to the ICU for further care. In the ICU patient was noted to have troponin that were elevated with the EKG changes as well. Cardiology was consulted who recommended the patient get a heart catheterization done here in the hospital. Patient had a heart catheterization done and was found to have occlusion in the right pain artery and had a stent placement patient had its severe arthrosclerotic disease in the coronary arteries ever the arteries were patent and the blood flow was not compromise. Patient did well postprocedure and remained chest pain-free for the next 24 hr. At that time patient was recommended to be discharged home under stable condition and was asked to continue taking the metoprolol, losartan, Cardura, and AST and along with aspirin. Patient was asked to stop taking of Alzheimer and due to the recent recall for the medication. Patient was asked to follow up with the primary care doctor for further management if needed for her hypertension. Patient remained off Lotensin here in the hospital without the valsartan. Patient demonstrated understand and thus was discharged home under stable condition. Patient was also asked to follow up with cardiology in about 1-2 weeks post discharge and was asked to take low cholesterol diet along with low-sodium diet as well. Vital Signs/Physical Exam: Temp Pulse Resp BP Pulse Ox 97.6 F 78 18 129/89 95 11/28/17 04:00 11/28/17 09:49 11/28/17 06:00 11/28/17 09:49 11/28/17 06:00 General: Alert, In no apparent distress HEENT: Atraumatic, PERRLA, EOMI Neck: Supple, JVD not distended Respiratory: Clear to auscultation bilaterally, Normal air movement Cardiovascular: Regular rate/rhythm, Normal S1 S2 Gastrointestinal: Normal bowel sounds, No tenderness Musculoskeletal: No tenderness Integumentary: No rashes Neurological: Normal speech, Normal tone, Normal affect Lymphatics: No axilla or inguinal lymphadenopathy Laboratory Data at Discharge: WBC 7.5 K/uL (4.3-10.9) D 11/28/17 04:51 Hgb 13.4 g/dL (12.0-15.0) 11/28/17 04:51 Hct 38.6 % (36.0-45.0) 11/28/17 04:51 Plt Count 235 K/uL (152-406) 11/28/17 04:51 PT 11.2 SECONDS (9.5-12.5) 11/25/17 20:35 INR 0.95 11/25/17 20:35 APTT 25.0 SECONDS (24.3-36.9) 11/25/17 20:35 Sodium 137 mmol/L (136-145) 11/28/17 04:51 Potassium 4.2 mmol/L (3.5-5.1) 11/28/17 04:51 BUN 19 mg/dL (7-18) H 11/28/17 04:51 Creatinine 1.00 mg/dL (0.55-1.3) 11/28/17 04:51 Glucose 173 mg/dL (74-106) H 11/28/17 04:51 Magnesium 1.8 mg/dL (1.8-2.4) 11/25/17 20:35 Total Bilirubin 0.3 mg/dL (0.2-1.0) 11/25/17 20:35 AST 22 U/L (15-37) 11/25/17 20:35 ALT 21 U/L (12-78) 11/25/17 20:35 Alkaline Phosphatase 101 U/L (45-117) 11/25/17 20:35 Troponin I 6.93 ng/mL (0.0-0.045) H* 11/26/17 16:03 Triglycerides 296 mg/dL (<150) H 11/28/17 04:51 Cholesterol 227 mg/dL (<200) H 11/28/17 04:51 HDL Cholesterol 31 mg/dL (40-60) L 11/28/17 04:51 Cholesterol/HDL Ratio 7.32 11/28/17 04:51 Home Medications: Glimepiride 4 mg PO BID 11/15/14 Loperamide [Imodium*] 2 mg PO PRN PRN 11/15/14 Metoprolol Succinate [Toprol Xl*] 50 mg PO BID 11/15/14 Doxazosin Mesylate [Cardura] 2 mg PO DAILY 11/26/17 Losartan Potassium [Cozaar] 25 mg PO DAILY 11/26/17 Trazodone [Desyrel*] 50 mg PO BEDTIME 11/26/17 Aspirin Chewable [Aspirin Chewable*] 81 mg PO DAILY #30 tab.chew 11/28/17 Prasugrel Hydrochloride [Effient] 10 mg PO DAILY #30 tab 11/28/17 New Medications: Aspirin Chewable [Aspirin Chewable*] 81 mg PO DAILY #30 tab.chew Prasugrel Hydrochloride [Effient] 10 mg PO DAILY #30 tab Diet: Regular Activity: Ad carlos Followup: Donal Zapien MD [ACTIVE - CAN ADMIT] - 1 Week Viviana Henderson MD [ACTIVE - CAN ADMIT] - 1 Week
[2017-11-28 12:34] VITALS: BP 105/62
--- NOTE | 2017-11-28 12:52 | EKG ---
Test Date: 2017-11-28 Test Time: 07:34:40 Orthopedic Shoe Fitter: SERGIO MEASUREMENT RESULTS: Intervals: Rate: 63 [place]: 162 QRSD: 80 QT: 444 QTc: 454 [place]: P: 38 [place]: 162 QRS: -19 T: 10 INTERPRETIVE STATEMENTS: Normal sinus rhythm Normal ECG Compared to ECG 11/26/2017 09:59:14 No significant changes Electronically Signed On 11-28-17 12:51:04 CDT by Galo Razo
[2017-11-28 12:53] VITALS: TEMP 97.5
[2017-11-28 12:56] VITALS: O2SAT 94
== END 2017-11-28 12:30 | disposition home or self-care (01) | DRG 247 ==
LOC: ER 20:36 → ERHOLD 21:24 → 3RD-ICU 21:44
PROVIDERS: ADMIT Internal Medicine; ATTEND Family Medicine
PROC: 027034Z Dilation of Coronary Artery, One Artery with Drug-eluting Intraluminal Device, Percutaneous Approach (ICD-10-PCS; principal; 2017-11-27)
PROC: 4A023N7 Measurement of Cardiac Sampling and Pressure, Left Heart, Percutaneous Approach (ICD-10-PCS; 2017-11-27)
PROC: B2111ZZ Fluoroscopy of Multiple Coronary Arteries using Low Osmolar Contrast (ICD-10-PCS; 2017-11-27)
DX: I21.4 Non-ST elevation (NSTEMI) myocardial infarction (principal); I47.1 Supraventricular tachycardia; I25.10 Atherosclerotic heart disease of native coronary artery without angina pectoris; E11.8 Type 2 diabetes mellitus with unspecified complications; I10 Essential (primary) hypertension; E78.5 Hyperlipidemia, unspecified; K21.9 Gastro-esophageal reflux disease without esophagitis; I48.2 Chronic atrial fibrillation; Z85.3 Personal history of malignant neoplasm of breast; Z79.84 Long term (current) use of oral hypoglycemic drugs; Z79.82 Long term (current) use of aspirin; Z91.14 Patient's other noncompliance with medication regimen; Z88.1 Allergy status to other antibiotic agents; Z88.0 Allergy status to penicillin; Z88.8 Allergy status to other drugs, medicaments and biological substances
CPT/HCPCS: 36415; 51702; 71045; 80048; 80053; 80061; 80076; 81003; 81015; 82550; 82553; 82805; 82962; 83690; 83735; 83880; 84100; 84443; 84484; 85025; 85347; 85610; 85730; 87077; 87086; 87088; 87186; 93005; 93306; 93454; 96365; 96374; 96375; 97163; 99285; 99291; C1725; C1760; C1893; C9600; J0153; J0360; J0583; J0696; J1644; J1650; J2001; J2250; J2405; J3010; J7030

== ENCOUNTER 2017-11-28 13:58 | Inpatient (IN) | payer OTHER ==
--- NOTE | 2017-11-28 14:45 | EDPHYS ---
Physician Documentation [facility] Name: Sherrell Palma Age: 77 yrs Sex: Female : 1940 Arrival Date: 11/28/2017 Time: 14:02 Bed 4 Private MD: ED Physician Henrique Mary HPI: 11/28 14:41 This 77 yrs old Female presents to ER via EMS with complaints of Nausea, lucía Dizziness, Near Syncope. 14:41 The patient presents to the emergency department with nausea. Onset: The lucía symptoms/episode began/occurred just prior to arrival. Possible causes: unknown. Historical: - Allergies: 14:11 Amoxicillin; iw 14:11 metformin; iw 14:11 Niacin; iw 14:11 PENICILLINS; iw 14:11 WelChol; iw 14:11 Zocor; iw - PMHx: 14:11 breast cancer; Diabetes - NIDDM; GERD; Hyperlipidemia; Hypertension; SVT; Myocardial iw infarction; - PSHx: 14:11 R mastectomy; Thyroidectomy; Heart stents; iw - Immunization history:: Adult Immunizations unknown. - Ebola Screening: : Patient negative for fever greater than or equal to 101.5 degrees Fahrenheit, and additional compatible Ebola Virus Disease symptoms Patient denies exposure to infectious person Patient denies travel to an Ebola-affected area in the 21 days before illness onset No symptoms or risks identified at this time. - Social history:: Smoking status: Patient/guardian denies using tobacco. ROS: 14:42 Constitutional: Negative for fever, chills, and weight loss, Eyes: Negative for injury, lucía pain, redness, and discharge, ENT: Negative for injury, pain, and discharge, Neck: Negative for injury, pain, and swelling, Cardiovascular: Negative for chest pain, palpitations, and edema, Respiratory: Negative for shortness of breath, cough, wheezing, and pleuritic chest pain, Abdomen/GI: Negative for abdominal pain, nausea, vomiting, diarrhea, and constipation, Back: Negative for injury and pain, : Negative for injury, bleeding, discharge, and swelling, MS/Extremity: Negative for injury and deformity, Skin: Negative for injury, rash, and discoloration, Psych: Negative for depression, anxiety, suicide ideation, homicidal ideation, and hallucinations, Allergy/Immunology: Negative for hives, rash, and allergies, Endocrine: Negative for neck swelling, polydipsia, polyuria, polyphagia, and marked weight changes, Hematologic/Lymphatic: Negative for swollen nodes, abnormal bleeding, and unusual bruising. 14:42 Neuro: Positive for near syncope, weakness. Exam: 14:42 Constitutional: This is a well developed, well nourished patient who is awake, alert, lucía and in no acute distress. Head/Face: Normocephalic, atraumatic. Eyes: Pupils equal round and reactive to light, extra-ocular motions intact. Lids and lashes normal. Conjunctiva and sclera are non-icteric and not injected. Cornea within normal limits. Periorbital areas with no swelling, redness, or edema. ENT: Nares patent. No nasal discharge, no septal abnormalities noted. Tympanic membranes are normal and external auditory canals are clear. Oropharynx with no redness, swelling, or masses, exudates, or evidence of obstruction, uvula midline. Mucous membranes moist. Neck: Trachea midline, no thyromegaly or masses palpated, and no cervical lymphadenopathy. Supple, full range of motion without nuchal rigidity, or vertebral point tenderness. No Meningismus. Chest/axilla: Normal chest wall appearance and motion. Nontender with no deformity. No lesions are appreciated. Cardiovascular: Regular rate and rhythm with a normal S1 and S2. No gallops, murmurs, or rubs. Normal PMI, no JVD. No pulse deficits. Respiratory: Lungs have equal breath sounds bilaterally, clear to auscultation and percussion. No rales, rhonchi or wheezes noted. No increased work of breathing, no retractions or nasal flaring. Abdomen/GI: Soft, non-tender, with normal bowel sounds. No distension or tympany. No guarding or rebound. No evidence of tenderness throughout. Back: No spinal tenderness. No costovertebral tenderness. Full range of motion. Female : Normal external genitalia. MS/ Extremity: Pulses equal, no cyanosis. Neurovascular intact. Full, normal range of motion. Psych: Awake, alert, with orientation to person, place and time. Behavior, mood, and affect are within normal limits. 14:42 Skin: Appearance: Color: pale, Temperature: normal temperature, Moisture: normal moisture, petechiae, not noted, ecchymosis, not noted, abscess, not appreciated, cellulitis, is not appreciated, induration, that is mild is noted. Vital Signs: 14:11 BP 111 / 64; Pulse 63; Resp 16 S; Pulse Ox 90% on R/A; Pain 0/10; iw 14:30 BP 108 / 55; Pulse 60; Resp 16; Pulse Ox 95% on R/A; ph 15:00 BP 121 / 58; Pulse 56; Resp 18; Pulse Ox 96% on R/A; ph 15:30 BP 112 / 55; Pulse 56; Resp 18; Pulse Ox 97% on R/A; ph 16:09 BP 125 / 77; Pulse 62; Resp 18; Temp 97.8(TE); Pulse Ox 96% on R/A; ph 17:15 BP 106 / 66; Pulse 66; Resp 16; Temp 97.4; Pulse Ox 95% on R/A; ph MDM: 14:03 Patient medically screened. [facility] 14:44 Data reviewed: vital signs, nurses notes, lab test result(s), EKG, radiologic studies, lucía plain films. 11/28 14:12 Order name: Basic Metabolic Panel 11/28 14:12 Order name: CBC with Diff 11/28 14:12 Order name: Ckmb 11/28 14:12 Order name: CPK 11/28 14:12 Order name: LFT's 11/28 14:12 Order name: Magnesium 11/28 14:12 Order name: NT PRO-BNP 11/28 14:12 Order name: PT-INR 11/28 14:12 Order name: Ptt, Activated 11/28 14:12 Order name: Troponin (emerg Dept Use Only) 11/28 14:12 Order name: XRAY Chest (1 view) 11/28 14:41 Order name: Lipase [facility] 11/28 16:29 Order name: Urine Dipstick--Ancillary (enter results) 11/28 17:18 Order name: Urine Dipstick-Ancillary EDID 11/28 14:12 Order name: EKG; Complete Time: 14:13 11/28 14:12 Order name: Cardiac monitoring; Complete Time: 14:37 11/28 14:12 Order name: EKG - Nurse/Tech; Complete Time: 17:27 11/28 14:12 Order name: IV Saline Lock; Complete Time: 14:37 11/28 14:12 Order name: Labs collected and sent; Complete Time: 14:38 11/28 14:12 Order name: O2 Per Protocol; Complete Time: 14:38 11/28 14:12 Order name: O2 Sat Monitoring; Complete Time: 14:38 11/28 14:12 Order name: Urine Dipstick-Ancillary (obtain specimen); Complete Time: 17:28 11/28 14:49 Order name: CONS Physician Consult EDMS Administered Medications: 17:39 Drug: Zofran 4 mg Route: IVP; Site: left antecubital; ph 17:39 Follow up: Response: No adverse reaction ph Disposition: 11/28/17 14:44 Hospitalization ordered by Olivia Soto for Observation. Preliminary diagnosis are Syncope and collapse, Weakness, Hypotension, Hypoxemia, Type 2 diabetes mellitus. - Bed requested for Telemetry/MedSurg (observation). - Status is Observation. ph - Condition is Stable. - Problem is new. - Symptoms have improved. UTI on Admission? No Signatures: Dispatcher [employer] EDID Henrique Mary MD MD cha Williams, Irene RN Kathy Hernandez RN RN ph Botello, Elizabeth eb Corrections: (The following items were deleted from the chart) 14:49 14:44 Hospitalization Ordered by Olivia Soto MD for Observation. Preliminary lucía diagnosis is Syncope and collapse; Weakness. Bed requested for Telemetry/MedSurg (observation). Status is Observation. Condition is Stable. Problem is new. Symptoms have improved. UTI on Admission? No. lucía 14:53 14:49 11/28/2017 14:44 Hospitalization Ordered by Olivia Soto MD for Observation. eb Preliminary diagnosis is Syncope and collapse; Weakness; Hypotension; Hypoxemia; Type 2 diabetes mellitus. Bed requested for Telemetry/MedSurg (observation). Status is Observation. Condition is Stable. Problem is new. Symptoms have improved. UTI on Admission? No. lucía 15:59 14:53 11/28/2017 14:44 Hospitalization Ordered by Olivia Soto MD for Observation. eb Preliminary diagnosis is Syncope and collapse; Weakness; Hypotension; Hypoxemia; Type 2 diabetes mellitus. Bed requested for Telemetry/MedSurg (observation). Status is Observation. Condition is Stable. Problem is new. Symptoms have improved. UTI on Admission? No. eb 17:42 15:59 11/28/2017 14:44 Hospitalization Ordered by Olivia Soto MD for Observation. ph Preliminary diagnosis is Syncope and collapse; Weakness; Hypotension; Hypoxemia; Type 2 diabetes mellitus. Bed requested for Telemetry/MedSurg (observation). Status is Observation. Condition is Stable. Problem is new. Symptoms have improved. UTI on Admission? No. eb
--- NOTE | 2017-11-28 14:45 | ER ---
Nurse's Notes [facility] Name: Sherrell Palma Age: 77 yrs Sex: Female : 1940 Arrival Date: 11/28/2017 Time: 14:02 Bed 4 Private MD: Diagnosis: Syncope and collapse;Weakness;Hypotension;Hypoxemia;Type 2 diabetes mellitus Presentation: 11/28 14:02 Presenting complaint: EMS states: pt was seen here 2 days ago, OH and SVT, has 2 stents iw placed, was discharged 30 minutes ago, was sitting on couch, stood up and got very dizzy, family reports pt was in and out of consciousness. EMS reports pt was hypotensive at 88/45, 88% on RA, paced on NRB up to 100%, NS infusing to LAC, BP up to 111 systolic, pt diaphoretic c/o nausea, no vomiting, no chest pain. Transition of care: patient was not received from another setting of care. Onset of symptoms was November 28, 2017. Risk Assessment: Do you want to hurt yourself or someone else? Patient reports no desire to harm self or others. Initial Sepsis Screen: Does the patient meet any 2 criteria? No. Patient's initial sepsis screen is negative. Does the patient have a suspected source of infection? No. Patient's initial sepsis screen is negative. Care prior to arrival: IV initiated. 20 GA, in the left antecubital area, Glucose check: 235. 14:02 Method Of Arrival: EMS: [facility] iw 14:02 Acuity: LUCY 2 iw Historical: - Allergies: 14:11 Amoxicillin; iw 14:11 metformin; iw 14:11 Niacin; iw 14:11 PENICILLINS; iw 14:11 WelChol; iw 14:11 Zocor; iw - PMHx: 14:11 breast cancer; Diabetes - NIDDM; GERD; Hyperlipidemia; Hypertension; SVT; Myocardial iw infarction; - PSHx: 14:11 R mastectomy; Thyroidectomy; Heart stents; iw - Immunization history:: Adult Immunizations unknown. - Ebola Screening: : Patient negative for fever greater than or equal to 101.5 degrees Fahrenheit, and additional compatible Ebola Virus Disease symptoms Patient denies exposure to infectious person Patient denies travel to an Ebola-affected area in the 21 days before illness onset No symptoms or risks identified at this time. - Social history:: Smoking status: Patient/guardian denies using tobacco. Screenin:36 Abuse screen: Denies threats or abuse. Denies injuries from another. Nutritional ph screening: No deficits noted. Tuberculosis screening: No symptoms or risk factors identified. Fall Risk No fall in past 12 months (0 pts). No secondary diagnosis (0 pts). IV access (20 points). Ambulatory Aid- None/Bed Rest/Nurse Assist (0 pts). Gait- Weak (10 pts.). Mental Status- Oriented to own ability (0 pts). Total [place] Fall Scale indicates Low Risk Score (25-44 pts). Fall prevention measures have been instituted. Side Rails Up X 2 Placed close to Nursing Station Frequent Obs/Assesments occuring Family Present and informed to notify staff if they need to leave bedside As available Patient and Family Educated on Fall Prevention Program and strategies. Assessment: 14:05 General: Appears uncomfortable, ill, Behavior is cooperative. Pain: Denies pain. Neuro: iw Level of Consciousness is awake, obeys commands, Oriented to person, place, time, Moves all extremities. Cardiovascular: Reports lightheadedness, nausea, Denies chest pain. Respiratory: Respiratory effort is even, unlabored, Respiratory pattern is regular. GI: Abdomen is non-distended, Reports nausea. Derm: Skin is clammy, Skin is. Musculoskeletal: Range of motion: intact in all extremities. 15:00 Reassessment: Patient appears in no apparent distress at this time. Patient and/or ph family updated on plan of care and expected duration. Pain level reassessed. Pt resting with eyes closed, respirations even and unlabored, awakens easily to verbal stimuli, denies pain at this time, awaiting lab results family at bedside. 16:15 Reassessment: Patient appears in no apparent distress at this time. Patient and/or ph family updated on plan of care and expected duration. Pain level reassessed. Pt remains drowsy, assisted to bedside commode, urine sample obtained, pt c/o nausea, ERP notified, see MAR. 16:30 Reassessment: Attempted to call report, receiving RN unavailable. ph 17:05 Reassessment: Patient appears in no apparent distress at this time. Patient and/or ph family updated on plan of care and expected duration. Pain level reassessed. Patient is alert, oriented x 3, equal unlabored respirations, skin warm/dry/pink. Pt reports that nausea has improved, attempted to call report to 4th floor, confidential secretary unable to locate receiving nurse. 17:20 Reassessment: Patient appears in no apparent distress at this time. Patient and/or ph family updated on plan of care and expected duration. Pain level reassessed. Report called to Simona KAM. Vital Signs: 14:11 BP 111 / 64; Pulse 63; Resp 16 S; Pulse Ox 90% on R/A; Pain 0/10; iw 14:30 BP 108 / 55; Pulse 60; Resp 16; Pulse Ox 95% on R/A; ph 15:00 BP 121 / 58; Pulse 56; Resp 18; Pulse Ox 96% on R/A; ph 15:30 BP 112 / 55; Pulse 56; Resp 18; Pulse Ox 97% on R/A; ph 16:09 BP 125 / 77; Pulse 62; Resp 18; Temp 97.8(TE); Pulse Ox 96% on R/A; ph 17:15 BP 106 / 66; Pulse 66; Resp 16; Temp 97.4; Pulse Ox 95% on R/A; ph Vitals: 16:09 Cardiac Rhythm Assessment Regular Sinus rhythm. ph ED Course: 14:02 Patient arrived in ED. iw 14:02 Binta Linder, EDDY is Primary Nurse. iw 14:03 Henrique Mary MD is Attending Physician. lucía 14:09 Triage completed. iw 14:11 Arm band placed on. iw 14:12 EKG done, by instrument repair technician. reviewed by Henrique Mary MD. at1 14:20 Initial lab(s) drawn, by ia, sent to lab. Maintain EMS IV. Dressing intact. Good blood ph return noted. Site clean \T\ dry. Gauge \T\ site: 20 LAC. 14:36 Patient has correct armband on for positive identification. Bed in low position. Call ph light in reach. Side rails up X2. playground monitor on. Pulse ox on. NIBP on. Warm blanket given. 14:44 Olivia Soto MD is Hospitalizing Provider. lucía 15:01 X-ray completed. Portable x-ray completed in exam room. jr1 15:02 XRAY Chest (1 view) In Process Unspecified. EDMS 17:23 No provider procedures requiring assistance completed. Patient admitted, IV remains in ph place. Administered Medications: 17:39 Drug: Zofran 4 mg Route: IVP; Site: left antecubital; ph 17:39 Follow up: Response: No adverse reaction ph Outcome: 14:44 Decision to Hospitalize by Provider. lucía 17:40 Admitted to [facility] 17:40 Condition: good 17:40 Discharge instructions given to patient, Instructed on the need for admit, Demonstrated understanding of instructions. 17:42 Patient left the ED. ph Signatures: Dispatcher [employer] EDIN Henrique Mary MD MD cha Ringgold, Jennifer jr1 Binta Linder, EDDY RN Liana cordero, mobile equipment operator EKG Tat1 Kathy Oliveira RN RN ph Corrections: (The following items were deleted from the chart) 16:22 15:47 BP 100 / 73; Pulse 95bpm; Resp 18bpm; Pulse Ox 94% 4 lpm Nasal Cannula; ph ph
[2017-11-28 14:48] LABS: Protime INR 0.97
[2017-11-28 15:00] LABS: Bilirubin Direct 0.1 mg/dL (0-0.2); Bilirubin Total 0.4 mg/dL (0.2-1.0); CKMB Creatine Kinase MB 1.5 ng/mL (0.3-3.6); Magnesium 1.8 mg/dL (1.8-2.4); Potassium 4.1 mmol/L (3.5-5.1); Protein, Total 6.4 g/dL (6.4-8.2)
--- NOTE | 2017-11-28 15:20 | RAD REPORT ---
EXAM DESCRIPTION: RAD - Chest Single View - 11/28/2017 3:08 pm CLINICAL HISTORY: near syncope, dizziness Chest pain. COMPARISON: Chest Single View dated 11/25/2017; CHEST PA AND LAT 2 VIEW dated 11/21/2010; CHEST PA AND LAT 2 VIEW dated 08/28/2005 FINDINGS: Portable technique limits examination quality. Patient rotation mildly limits the examination. Mild tracheal deviation to the right is noted, appear ing chronic in this patient albeit mildly progressive since 2010 and may be related to substernal goi ter. The lungs are grossly clear. The heart is normal in size with aortic atherosclerosis.
--- NOTE | 2017-11-28 15:49 | P.HP ---
Certification for Inpatient Patient admitted to: Observation With expected LOS: <2 Midnights Patient will require the following post-hospital care: None Practitioner: I am a practitioner with admitting privileges, knowledge of patient current condition, hospital course, and medical plan of care. Services: Services provided to patient in accordance with Admission requirements found in Title 42 Section 412.3 of the Code of Federal Regulations Patient History Date of Service: 11/28/17 Reason for admission: Dizziness History of Present Illness: In year old female with past medical history of diabetes, high blood pressure, CAD, was read discharge from the hospital 30 min ago to the house under stable condition presented back to the ED complaining of having some dizziness. Patient stated that she went home was sitting on her couch and tried to get up and she got oral dizzy and had a near-syncopal episode. 911 was called any meds arrived at the scene and found that she was hypotensive and saturating 88% on room air. Patient was diaphoretic at that time and did have some nausea as well. Patient was thus brought over to the ER for further care. Patient on discharge from the hospital today was able to ambulate with minimal assist with nursing staff for blood pressure and other vitals were stable and had no complaints to offer on discharge. However at home patient stated that she does not know what happened and started feeling dizzy. No other complaints to offer at this time. Patient denies having any chest pain nausea vomiting or any other episodes of dizziness at this time. She states that she feels better now Allergies amoxicillin Allergy (Mild, Verified 11/25/17 23:02) Hives/Rash colesevelam HCl [From WelChol] Allergy (Mild, Verified 11/25/17 23:02) diarrhea niacin Allergy (Mild, Verified 11/25/17 23:02) Nausea/Vomiting Penicillins Allergy (Mild, Verified 11/25/17 23:02) Hives/Rash simvastatin [From Zocor] Allergy (Mild, Verified 11/25/17 23:02) generalized pain metformin Allergy (Verified 11/25/17 23:02) Unknown Home Medications: Glimepiride 4 mg PO BID 11/15/14 Loperamide [Imodium*] 2 mg PO PRN PRN 11/15/14 Metoprolol Succinate [Toprol Xl*] 50 mg PO BID 11/15/14 Doxazosin Mesylate [Cardura] 2 mg PO DAILY 11/26/17 Losartan Potassium [Cozaar] 25 mg PO DAILY 11/26/17 Trazodone [Desyrel*] 50 mg PO BEDTIME 11/26/17 Aspirin Chewable [Aspirin Chewable*] 81 mg PO DAILY #30 tab.chew 11/28/17 Prasugrel Hydrochloride [Effient] 10 mg PO DAILY #30 tab 11/28/17 - Past Medical/Surgical History Diabetic: Yes -: NIDDM -: A-FIB -: CANCER- RIGHT BREAST -: HYPERTENSION -: SHANE -: HYSTERECTOMY -: R SIDE MASTECTOMY -: APPENDECTOMY -: R EYE CATARACT SX -: PARTIAL THYROID REMOVAL - Family History Sister -: Heart disease Mother -: Heart disease, Hypertension Notes: unknown heart condition- was in her 80s when she . - Social History Alcohol use: No CD- Drugs: No Caffeine use: Yes Review of Systems General: As per HPI Physical Examination - Physical Exam General: Alert, Oriented x3, Acute distress HEENT: Atraumatic Neck: Supple, 2+ carotid pulse no bruit, No LAD, Without JVD or thyroid abnormality Respiratory: Normal air movement, Crackles/rales Cardiovascular: Regular rate/rhythm, Normal S1 S2 Gastrointestinal: Normal bowel sounds, Soft and benign, Non-distended, No tenderness Musculoskeletal: No tenderness Integumentary: No rashes Neurological: Normal speech, Normal tone, Abnormal strength Lymphatics: No axilla or inguinal lymphadenopathy - Studies Laboratory Data (last 24 hrs) 11/28/17 14:25: PT 11.4, INR 0.97, APTT 23.6 L 11/28/17 14:25: Sodium 136, Potassium 4.1, BUN 23 H, Creatinine 1.10, Glucose 214 H, Magnesium 1.8, Total Bilirubin 0.4, AST 26, ALT 20, Alkaline Phosphatase 63 11/28/17 14:23: Lipase 174 Assessment and Plan - Problems (Diagnosis) (1) Dizziness Current Visit: Yes Status: Acute Plan: Most likely 2.2 to Hypotension. -Will hold BP meds and make adjustments based on BP here in the hospital -PT consulted as well. -Fall precautions given -Observe for 24 hrs. (2) Subendocardial ischemia Onset Date: 11/26/17 Current Visit: No Status: Acute Plan: S/p Stent Placement -On Effient and ACS meds -Hold BP meds now. -cardiology consulted. (3) Afib Onset Date: 11/16/14 Current Visit: No Status: Chronic Plan: Restart Home medication Qualifiers: Atrial fibrillation type: chronic (4) Diabetes mellitus Onset Date: 11/26/17 Current Visit: No Status: Chronic Plan: On ISS Qualifiers: Diabetes mellitus type: type 2 Diabetes mellitus mcfp insulin use: without roasterman use Diabetes mellitus complication status: without complication Qualified Code(s): E11.9 - Type 2 diabetes mellitus without complications (5) HTN (hypertension) Onset Date: 11/26/17 Current Visit: No Status: Chronic Plan: Hold BP meds due to Hypotension Qualifiers: Hypertension type: essential hypertension (6) SVT (supraventricular tachycardia) Onset Date: 11/26/17 Current Visit: No Status: Resolved Discharge Plan: Home Plan to discharge in: 24 Hours - Advance Directives Does patient have a Living Will: No Does patient have a Durable POA for Healthcare: No - Code Status/Comfort Care Code Status Assessed: Yes Critical Care: No
[2017-11-28 16:17] LABS: Absolute Lymphocytes (CBC) 1.5 K/uL (0.7-4.9); Absolute Monocytes 0.6 K/uL (0.1-1.3); Absolute Neutrophil 3.6 K/uL (1.8-8.0); Basophils % 0.4 % (0-1.3); Eosinophils % 1.6 % (0-4.4); Hematocrit 35.1 % (36.0-45.0); Lymphocytes % 25.1 % (15.3-44.8); MCH 31.4 pg (27.0-35.0); MCV 92.2 fL (80-100); MPV 8.2 fL (7.6-11.3); Monocytes % 10.5 % (3.3-12.3); RBC Red Blood Cell Count 3.81 M/uL (3.86-4.86)
[2017-11-28] MEDS ORDERED: ONDANSETRON 4 MG/2 ML VIAL ONE (17:10)
[2017-11-28 17:17] LABS: Urine Blood TRACE (NEG); Urine Glucose 2+ (NEG); Urine Protein 2+ (NEG); Urine pH 5.5 (5.0-7.0)
[2017-11-28] MEDS ORDERED: ONDANSETRON 4 MG/2 ML VIAL IV PRN (17:57)
[2017-11-28] MEDS ORDERED: ACETAMINOPHEN 500 MG TAB PO PRN (17:57)
--- NOTE | 2017-11-28 18:07 | EKG ---
Test Date: 2017-11-28 Test Time: 14:01:43 Seed Pelleter: SERGIO MEASUREMENT RESULTS: Intervals: Rate: 61 FL: 154 QRSD: 74 QT: 452 QTc: 455 [place]: P: 22 FL: 154 QRS: -32 T: -10 INTERPRETIVE STATEMENTS: Normal sinus rhythm Left axis deviation Moderate voltage criteria for LVH, may be normal variant Abnormal ECG Compared to ECG 11/28/2017 07:34:40 Left-axis deviation now present Left ventricular hypertrophy now present Electronically Signed On 11-28-17 18:06:28 CDT by Galo Razo
[2017-11-28 18:43] VITALS: BMI 35.6
[2017-11-28] MEDS: NA CHLORIDE 0.9% 1,000 ML IV SCH (19:06)
[2017-11-28 23:00] LABS: Urine Appearance CLEAR; Urine Bilirubin NEGATIVE (NEG); Urine Blood NEGATIVE (NEG); Urine Color YELLOW; Urine Glucose 2+ (NEG); Urine Protein NEGATIVE (NEG); Urine Specific Gravity 1.025 (1.005-1.030); Urine pH 5.5 (5.0-7.0)
[2017-11-29 00:01] LABS: Urine Microscopic Reflex ORDER UMIC
[2017-11-29 00:45] LABS: Urine Bacteria 20-50 /HPF (<20); Urine Culture Reflex Order REFLEXED
[2017-11-29 00:46] LABS: Urine RBC NONE SEEN /HPF (NONE SEEN)
[2017-11-29] MEDS: NA CHLORIDE 0.9% 1,000 ML IV SCH ×2 (05:23→13:57)
[2017-11-29 05:31] LABS: Absolute Lymphocytes (CBC) 1.7 K/uL (0.7-4.9); Absolute Monocytes 0.7 K/uL (0.1-1.3); Absolute Neutrophil 4.1 K/uL (1.8-8.0); Basophils % 0.4 % (0-1.3); Eosinophils % 1.3 % (0-4.4); Hematocrit 33.6 % (36.0-45.0); Lymphocytes % 25.2 % (15.3-44.8); MCV 91.9 fL (80-100); MPV 7.9 fL (7.6-11.3); Monocytes % 11.1 % (3.3-12.3); RBC Red Blood Cell Count 3.65 M/uL (3.86-4.86)
[2017-11-29 05:46] LABS: Bilirubin Total 0.5 mg/dL (0.2-1.0); Potassium 3.9 mmol/L (3.5-5.1); Protein, Total 6.2 g/dL (6.4-8.2)
[2017-11-29] MEDS ORDERED: POTASSIUM CL SA 10 MEQ TAB PO ONE (05:50)
[2017-11-29] MEDS: ASPIRIN 81 MG CHEWABLE TABLET PO SCH (09:26)
[2017-11-29] MEDS: PRASUGREL (EFFIENT) 10 MG TAB PO SCH (09:26)
--- NOTE | 2017-11-29 12:17 | CON ---
History Of Present Illness: Ms. Palma is 77. She left the hospital, was taken home and 15 minutes after arriving there, she was trying to adjust her thermostat when she had syncope, apparently was un conscious for a few moments but not minutes or hours. When she awoke, she was taken to the emergency room. She was in sinus rhythm. The patient had an intracoronary stent placed on Friday of this we ek. She seemed to do well. She had an MT that was caused by arrhythmia. She has supraventricular a rrhythmia, which may be atrial flutter or AV node reentrant SVT. She also has a history of atrial fi brillation. She was in sinus rhythm as soon as the ambulance saw her and she was brought to the ER, it is only a suspicion she may have an arrhythmia that caused her syncope. When she came to the hosp ital at her last visit, it was on the 24 of November and she had arrhythmia, heart rate 160, marked ST abnormality and we believe that she had an MT caused by tachycardia with severe fixed coronary heart disease. She had a totally occluded right coronary, a high-grade stenosis in the circumflex. The ci rcumflex was stented. LAD did not need any intervention and it was felt that she had a stable pierre ry situation, but her arrhythmia was probably not ideally controlled. The patient has refused to see the fixed route operator in the past because of transportation problems, but she has been recommended in the past to undergo electrophysiologic evaluation, probably ablation, may be a deep defibrillator after it was learned especially now that she has had syncope. Her most recent echocardiogram was on the 26 of November of this year, this is a day or 2 after her stent. Her ejection fraction was normal and all picture was completely normal. Outpatient Medications: Metoprolol, glimepiride, loperamide, losartan, doxazosin, trazodone, aspirin and prasugrel. Presently, she is getting aspirin and prasugrel and rosuvastatin. She is not on any of the beta blockers or angiotensin receptor blockers. Physical Examination: Vital Signs: She is 4 feet 11 inches, 176 pounds. Blood pressure 130/61, heart rate 71, temperature 97.1. General: She is in no pain. Alert, oriented, pleasant, not in distress. Lungs: Clear. Extremities: Normal. Electrocardiogram does not show infarction, injury, or ischemia. There is moderate voltage for LVH, otherwise it is normal. Impression: The patient probably fainted from low blood pressure, being on several medications, rece ntly getting home from the hospital standing for the first time with the possibility of arrhythmia ag ain can't be ruled out unless we do an EP study. An EP study was not recommended initially. Her tac hycardia has caused a large heart attack, cause us to do coronary interventions though. My recommend ation is that she stay in the hospital until we transfer her to an fixed route operator, at this point she has not consented to it, so I will talk with her again about it tomorrow. If she agrees, I will contact the electrophysiologists I know the best in [place] and see if they would take her and trans michelle and do EP study, likely ablation of SVT and atrial fibrillation. BRENDA/RADHA Voice ID: [id number] Report ID: [id number]
--- NOTE | 2017-11-29 12:42 | P.PN ---
Subjective Date of Service: 11/29/17 Chief Complaint: Dizziness Review of Systems General: As per HPI Physical Examination - Vital Signs Temperature: 97.1 F Blood Pressure: 130/61 Pulse: 71 Respirations: 18 Pulse Ox (%): 96 - Physical Exam General: Alert, Oriented x3, Mild distress HEENT: Atraumatic Neck: Supple, JVD not distended Respiratory: Normal air movement, Crackles/rales Cardiovascular: Regular rate/rhythm, Normal S1 S2 Gastrointestinal: Normal bowel sounds, Soft and benign, Non-distended, No tenderness Musculoskeletal: No tenderness Integumentary: No rashes Neurological: Normal speech, Normal tone, Normal affect Lymphatics: No axilla or inguinal lymphadenopathy - Studies Laboratory Data (last 24 hrs) 11/29/17 05:00: Sodium 138, Potassium 3.9, BUN 26 H, Creatinine 1.00, Glucose 145 H, Total Bilirubin 0.5, AST 23, ALT 22, Alkaline Phosphatase 60 11/29/17 05:00: WBC 6.7 D, Hgb 11.7 L, Hct 33.6 L, Plt Count 209 11/28/17 14:25: PT 11.4, INR 0.97, APTT 23.6 L 11/28/17 14:25: WBC 5.8 D, Hgb 12.0, Hct 35.1 L, Plt Count 226 11/28/17 14:25: Sodium 136, Potassium 4.1, BUN 23 H, Creatinine 1.10, Glucose 214 H, Magnesium 1.8, Total Bilirubin 0.4, AST 26, ALT 20, Alkaline Phosphatase 63 11/28/17 14:23: Lipase 174 Medications List Reviewed: Yes Assessment & Plan - Problems (Diagnosis) (1) Dizziness Current Visit: Yes Status: Acute Plan: Most likely 2.2 to Hypotension. Still having episodes of Hypotension -Will hold BP meds and make adjustments based on BP here in the hospital -Will get Orthostatics at this time. -PT consulted as well. -Fall precautions given -Observe for 24 hrs. (2) Subendocardial ischemia Onset Date: 11/26/17 Current Visit: No Status: Acute Plan: S/p Stent Placement POD # 3 now -On Effient, Statin. BB. Hold Losartan and Cardura -cardiology consulted. Appreciated Reccs -Pt is at high risk from complication post angioplasty which might require further Invasive Intervention. -Will Continue to observe closely -pt was advised to be transferred to medical center, however pt states she will need to discuss with family. (3) Afib Onset Date: 11/16/14 Current Visit: No Status: Chronic Plan: Restart Home medication Qualifiers: Atrial fibrillation type: chronic (4) Diabetes mellitus Onset Date: 11/26/17 Current Visit: No Status: Chronic Plan: On ISS Qualifiers: Diabetes mellitus type: type 2 Diabetes mellitus oil heaterman insulin use: without chcf use Diabetes mellitus complication status: without complication Qualified Code(s): E11.9 - Type 2 diabetes mellitus without complications (5) HTN (hypertension) Onset Date: 11/26/17 Current Visit: No Status: Chronic Plan: Hold BP meds due to Hypotension Qualifiers: Hypertension type: essential hypertension (6) SVT (supraventricular tachycardia) Onset Date: 11/26/17 Current Visit: No Status: Resolved Discharge Plan: Home Plan to discharge in: 24 Hours - Code Status/Comfort Care Code Status Assessed: Yes Critical Care: No
[2017-11-29] MEDS: METOPROLOL TAR 25 MG TAB PO SCH (18:20)
[2017-11-29] MEDS ORDERED: ROSUVASTATIN 10 MG TAB PO SCH (21:00)
[2017-11-30 04:34] LABS: Absolute Lymphocytes (CBC) 1.7 K/uL (0.7-4.9); Absolute Monocytes 0.7 K/uL (0.1-1.3); Absolute Neutrophil 3.2 K/uL (1.8-8.0); Basophils % 0.7 % (0-1.3); Eosinophils % 2.4 % (0-4.4); Hematocrit 32.8 % (36.0-45.0); Lymphocytes % 28.7 % (15.3-44.8); MCH 31.8 pg (27.0-35.0); MCV 92.2 fL (80-100); Monocytes % 12.6 % (3.3-12.3); RBC Red Blood Cell Count 3.55 M/uL (3.86-4.86)
[2017-11-30 04:50] LABS: Albumin 3.1 g/dL (3.4-5.0); Bilirubin Total 0.5 mg/dL (0.2-1.0); Magnesium 1.9 mg/dL (1.8-2.4); Phosphorus 3.2 mg/dL (2.5-4.9); Potassium 4.4 mmol/L (3.5-5.1); Protein, Total 6.3 g/dL (6.4-8.2)
[2017-11-30] MEDS: METOPROLOL TAR 25 MG TAB PO SCH ×2 (05:45→17:03)
[2017-11-30] MEDS: PRASUGREL (EFFIENT) 10 MG TAB PO SCH (09:51)
[2017-11-30] MEDS: ASPIRIN 81 MG CHEWABLE TABLET PO SCH (09:51)
[2017-11-30] MEDS ORDERED: LOPERAMIDE HCL 2 MG CAPSULE PO PRN (11:37)
--- NOTE | 2017-11-30 11:39 | P.PN ---
Subjective Date of Service: 11/30/17 Chief Complaint: Dizziness Subjective: No new changes, No C/O voiced, Ambulating, Working w/ PT Review of Systems General: As per HPI Physical Examination - Vital Signs Temperature: 97.1 F Blood Pressure: 138/69 Pulse: 65 Respirations: 12 Pulse Ox (%): 96 - Physical Exam General: Alert, In no apparent distress, Oriented x3 HEENT: Atraumatic, PERRLA, EOMI Neck: Supple, JVD not distended Respiratory: Clear to auscultation bilaterally, Normal air movement Cardiovascular: Regular rate/rhythm, Normal S1 S2 Gastrointestinal: Normal bowel sounds, No tenderness Musculoskeletal: No tenderness Integumentary: No rashes Neurological: Normal speech, Normal tone, Normal affect Lymphatics: No axilla or inguinal lymphadenopathy - Studies Medications List Reviewed: Yes Assessment & Plan - Problems (Diagnosis) (1) Dizziness Current Visit: Yes Status: Acute Plan: Most likely 2.2 to Hypotension. Still having episodes of Hypotension -Will hold BP meds and make adjustments based on BP here in the hospital -Orthostatics done -PT consulted as well. -Fall precautions given -Observe for 24 hrs. (2) Subendocardial ischemia Onset Date: 11/26/17 Current Visit: No Status: Acute Plan: S/p Stent Placement POD # 3 now -On Effient, Statin. BB. Hold Losartan and Cardura -cardiology consulted. Appreciated Reccs -Pt is at high risk from complication post angioplasty which might require further Invasive Intervention. -Will Continue to observe closely -pt was advised to be transferred to medical center, Pt has agreed for the transfer today. (3) Afib Onset Date: 11/16/14 Current Visit: No Status: Chronic Plan: Restart Home medication Qualifiers: Atrial fibrillation type: chronic (4) Diabetes mellitus Onset Date: 11/26/17 Current Visit: No Status: Chronic Plan: On ISS Qualifiers: Diabetes mellitus type: type 2 Diabetes mellitus long term care administrator insulin use: without long term care administrator use Diabetes mellitus complication status: without complication Qualified Code(s): E11.9 - Type 2 diabetes mellitus without complications (5) HTN (hypertension) Onset Date: 11/26/17 Current Visit: No Status: Chronic Plan: Hold BP meds due to Hypotension Qualifiers: Hypertension type: essential hypertension (6) SVT (supraventricular tachycardia) Onset Date: 11/26/17 Current Visit: No Status: Resolved Discharge Plan: Home Plan to discharge in: 48 Hours - Code Status/Comfort Care Code Status Assessed: Yes Critical Care: No
[2017-11-30] MEDS: CEFTRIAXONE/SWI 1gm 1 GM/10 ML SYR IVP SCH (13:14)
[2017-12-01] MEDS: METOPROLOL TAR 25 MG TAB PO SCH ×2 (05:43→17:23)
[2017-12-01 06:26] LABS: Absolute Lymphocytes (CBC) 1.7 K/uL (0.7-4.9); Absolute Monocytes 0.6 K/uL (0.1-1.3); Basophils % 0.7 % (0-1.3); Eosinophils % 2.8 % (0-4.4); Hematocrit 34.4 % (36.0-45.0); Lymphocytes % 29.9 % (15.3-44.8); MCH 31.3 pg (27.0-35.0); MCV 91.8 fL (80-100); Monocytes % 11.7 % (3.3-12.3); RBC Red Blood Cell Count 3.75 M/uL (3.86-4.86)
[2017-12-01 06:47] LABS: Albumin 3.1 g/dL (3.4-5.0); Bilirubin Total 0.4 mg/dL (0.2-1.0); Potassium 4.3 mmol/L (3.5-5.1); Protein, Total 6.7 g/dL (6.4-8.2)
[2017-12-01] MEDS: PRASUGREL (EFFIENT) 10 MG TAB PO SCH (09:19)
[2017-12-01] MEDS: CEFTRIAXONE/SWI 1gm 1 GM/10 ML SYR IVP SCH (09:19)
[2017-12-01] MEDS: ASPIRIN 81 MG CHEWABLE TABLET PO SCH (09:19)
--- NOTE | 2017-12-01 14:04 | PN ---
Date of Progress Note: 12/01/2017 Subjective: The patient seen and examined, chart reviewed, and case discussed with RN. The patient needs to be transferred to [facility] for EP study. Currently is still awaiting transfer. Denies any chest pain at this moment. No further syncopal episode. Review of Systems: Negative except as above. Medications: List reviewed. Code Status: Full. Objective: Vital Signs: Temperature 97.5, heart rate 65, blood pressure 149/69 , respirations 18, and O2 saturation 93% on room air. General: Awake, alert, oriented x3, not in any acute distress. Elderly female , obese, BMI greater than 30. CV: S1, S2. No murmurs. Peripheral pulses present. Respiratory: Clear to auscultation bilaterally. No wheezing. No stridor. No use of accessory muscles. Gastrointestinal: Abdomen is soft, nontender, nondistended. Obese. Positive bowel sounds. Extremities: No clubbing, cyanosis, or edema. Neurologic: Nonfocal. Laboratory Data: Sodium 139, potassium 4.3, chloride 107, CO2 27, BUN 21, creatinine 0.8, glucose 163, calcium 8.7, albumin 3.1. WBC 5.5, H and H 11.7, 34.4, platelets 223, neutrophils 54%. Urine culture growing 4+ non beta- hemolytic strep, likely contaminant. Assessment: A 77-year-old female with; 1. Dizziness, syncopal episode, likely secondary to hypotension or possible arrhythmias. PT has been consulted. Orthostatics negative. Blood pressure medications have been adjusted. Continue fall precautions. 2. Subendocardial ischemia. The patient had stent placement, postoperative day #4. Continue on Effient, statin, beta-jennifer. blood pressure medications , losartan and Cardura held due to dizziness. Dr. Razo recommends transfer to [facility] for EP study. The patient is high risk for complication post angioplasty. 3. Atrial fibrillation, chronic. 4. Diabetes mellitus type 2, without long-term use of insulin with hyperglycemia. Continue sliding scale insulin. 5. Essential hypertension. 6. Supraventricular tachycardia. Continue beta-jennifer. Plan: [facility]. DELMIS Voice ID: [id number] Report ID: [id number] [facility]ITAL[facility]
[2017-12-02] MEDS: METOPROLOL TAR 25 MG TAB PO SCH ×2 (05:00→17:29)
[2017-12-02] MEDS: PRASUGREL (EFFIENT) 10 MG TAB PO SCH (09:58)
[2017-12-02] MEDS: CEFTRIAXONE/SWI 1gm 1 GM/10 ML SYR IVP SCH (09:58)
[2017-12-02] MEDS: ASPIRIN 81 MG CHEWABLE TABLET PO SCH (09:58)
--- NOTE | 2017-12-02 18:07 | PN ---
Date of Progress Note: 12/02/2017 Subjective: The patient is seen and examined. Chart reviewed and case discussed with RN. The patient is awaiting transfer to [facility]. No acute events overnight. Review of Systems: Negative except as above. Medications: List reviewed. Physical Examination: Vital Signs: Temperature 97.9, heart rate 86, blood pressure 159/86, respirations 18, O2 96% on room air. General: Awake, alert, oriented x3, not in any acute distress. Obese female, elderly. CV: S1, S2. No murmurs. Peripheral pulses present. Regular rate and rhythm. Respiratory: Clear to auscultation bilaterally. No wheezing. No stridor. No use of accessory muscles. Gastrointestinal: Abdomen is soft, nontender, nondistended. Positive bowel sounds. Extremities: No clubbing, cyanosis, edema. Neurologic: Nonfocal. Laboratory Data: Blood glucose level 180. Urine culture growing Enterococcus faecalis vanc sensitive. Assessment And Plan: A 77-year-old female with: 1. Dizziness, syncopal episode, likely secondary to hypotension and arrhythmia. No further episode. Orthostatics negative. Blood pressure medications improved. We will continue PT. 2. Subendocardial ischemia. The patient recently had stent placed in previous hospitalization, postoperative day #5. We will continue with Effient, statin, beta-jennifer. Blood pressure medications held due to syncope and dizziness. The patient recommended for transfer to [facility] for EP study as she is high risk for complications post angioplasty. Awaiting bed. 3. Atrial fibrillation, chronic; however, currently in sinus rhythm. 4. Diabetes mellitus type 2 without long-term use of insulin with hyperglycemia. We will continue sliding scale insulin. 5. Essential hypertension, stable. 6. Supraventricular tachycardia, on beta-jennifer. 7. UTI: acute cystitis without hematuria. Enterococcus. Adjust Abx Plan: Transfer the patient once accepted. /RADHA Voice ID: [id number] Report ID: [id number] FRANCA
[2017-12-03] MEDS: METOPROLOL TAR 25 MG TAB PO SCH ×2 (06:13→17:22)
[2017-12-03] MEDS: PRASUGREL (EFFIENT) 10 MG TAB PO SCH (08:12)
[2017-12-03] MEDS: ASPIRIN 81 MG CHEWABLE TABLET PO SCH (08:13)
[2017-12-03] MEDS: LOSARTAN POTASSIUM 50 MG TABLET PO SCH (08:13)
--- NOTE | 2017-12-03 11:45 | PN ---
Date of Progress Note: 12/02/2017 Ms. Palma has a history of CAD recently. Also has a history of somewhat stabl e, requiring catheterization and stent recently. At this time, she comes in with syncope probably se condary to orthostatic hypotension. Continued to have arrhythmias. She is awaiting transfer to ____ for possible ablation at [facility]. No events recorded overnight. SKLYA/RADHA Voice ID: [id number] Report ID: [id number]
[2017-12-03] MEDS: levoFLOXacin 500 MG TAB PO SCH (15:51)
--- NOTE | 2017-12-03 17:03 | PN ---
Date of Progress Note: 12/03/2017 Subjective: The patient is seen and examined. Chart reviewed and case discussed with RN. The patient denies any other complaints. No acute events overnight. Review of Systems: Negative except as above. Medications: List reviewed. Physical Examination: Vital Signs: Temperature 97.6, heart rate 56, blood pressure 154/65, respirations 16, O2 97% on room air. General: Awake, alert, oriented x3, in no acute distress. Elderly female, obese, BMI greater than 30. CV: S1, S2. No murmurs. Peripheral pulses present. Respiratory: Moving air well bilaterally. No wheezing. Gastrointestinal: Abdomen is soft, nontender, nondistended. Positive bowel sounds. No guarding or rigidity. Extremities: No clubbing, cyanosis, or edema. No calf tenderness. Neuro: Cranial nerves 2 through 12 intact grossly. No focal neurological deficits. Laboratory Data: Glucose 171 and 189. Urine culture growing Enterococcus faecalis. Assessment And Plan: A 77-year-old female with: 1. Dizziness, syncopal episode secondary to hypertension and arrhythmia. No further episodes. Orthostatics negative. Continue PT. 2. Subendocardial ischemia. Stent placed in previous hospitalization, currently postoperative day #6. Continue Effient, statin, beta-jennifer. Blood pressure medications adjusted due to the dizziness and syncopal episode. Awaiting transfer to [facility] for EP study due to high risk of complications post angioplasty. 3. Atrial fibrillation; paroxysmal, currently in sinus rhythm. Continue beta- jennifer. 4. Diabetes mellitus type 2 with long-term use of insulin with hyperglycemia. Continue sliding scale insulin. 5. Essential hypertension, stable. 6. Supraventricular tachycardia. No other recurrent episodes. On beta- blockers. 7. UTI: enterococcus. Cont abx. Plan: Transfer to the [facility] once bed is available. /RADHA Voice ID: [id number] Report ID: [id number] FRANCA
[2017-12-04 04:28] VITALS: O2SAT 96
[2017-12-04] MEDS: METOPROLOL TAR 25 MG TAB PO SCH (05:16)
[2017-12-04] MEDS: levoFLOXacin 500 MG TAB PO SCH (09:32)
[2017-12-04] MEDS: LOSARTAN POTASSIUM 50 MG TABLET PO SCH (09:32)
[2017-12-04] MEDS: ASPIRIN 81 MG CHEWABLE TABLET PO SCH (09:32)
[2017-12-04] MEDS: PRASUGREL (EFFIENT) 10 MG TAB PO SCH (09:34)
[2017-12-04 12:32] VITALS: TEMP 98.2
[2017-12-04 14:30] VITALS: BP 143/73
--- NOTE | 2017-12-04 15:25 | DS ---
Date of Discharge: 12/04/2017 External Relations Manager: Dr. Razo with Cardiology. Admitting Diagnoses: 1. Dizziness, hypertension. 2. Subendocardial ischemia. 3. Atrial fibrillation, chronic. 4. Diabetes mellitus type 2 without complications without long-term use of insulin. 5. Essential hypertension, currently hypotensive. 6. Supraventricular tachycardia. Discharge Diagnoses: 1. Dizziness, syncopal episode secondary to hypotension and arrhythmia. 2. Subendocardial ischemia. The patient recently had a stent place approximately 1 week ago, on Effient, statin, and beta-jennifer. 3. Atrial fibrillation, paroxysmal, currently in sinus rhythm, rate controlled. Continue beta-jennifer. 4. Diabetes mellitus type 2 with long-term use of insulin with hyperglycemia. 5. Essential hypertension. 6. Supraventricular tachycardia. No further episodes. Hospital Course: The patient is a 77-year-old female with history of diabetes, high blood pressure, coronary artery disease, recently had stent placement approximately 1 week ago, comes back in with dizziness and hypotension. The patient had a syncopal episode. This was thought to be due to her blood pressure medications. Her medications were adjusted. She was placed on fall precautions. PT was consulted and the patient did improve. Her Effient and other heart medications were continued. The patient does have history of AFib; however, was in the sinus rhythm. The patient did have an episode of SVT. Due to the patient's high risk and complications post angioplasty and with her arrhythmias, the patient was recommended by Cardiology to be transferred to [facility] for EP study and possible ablation. The patient was then referred to [facility] and accepted for transfer. The patient now has a bed and will be transferred in a stable condition. Total time spent transferring the patient was 32 minutes. DELMIS Voice ID: [id number] Report ID: [id number] FRANCA
== END 2017-12-04 15:22 | disposition short-term general hospital (02) | DRG 281 ==
LOC: ER 13:58 → ERHOLD 14:47 → 4TH 17:28 → OBSVTOIN 11-29 12:15
PROVIDERS: ADMIT Family Medicine; ATTEND Family Medicine
DX: I95.2 Hypotension due to drugs (principal); I21.A1 Myocardial infarction type 2; I47.1 Supraventricular tachycardia; N30.00 Acute cystitis without hematuria; I10 Essential (primary) hypertension; I48.0 Paroxysmal atrial fibrillation; R09.02 Hypoxemia; E11.65 Type 2 diabetes mellitus with hyperglycemia; B95.2 Enterococcus as the cause of diseases classified elsewhere; I25.10 Atherosclerotic heart disease of native coronary artery without angina pectoris; E66.9 Obesity, unspecified; Z68.35 Body mass index [BMI] 35.0-35.9, adult; T46.5X5A Adverse effect of other antihypertensive drugs, initial encounter; Z88.1 Allergy status to other antibiotic agents; Z88.0 Allergy status to penicillin; Z88.8 Allergy status to other drugs, medicaments and biological substances; Z79.84 Long term (current) use of oral hypoglycemic drugs; Z79.82 Long term (current) use of aspirin; Z85.3 Personal history of malignant neoplasm of breast; Z95.5 Presence of coronary angioplasty implant and graft
CPT/HCPCS: 36415; 71045; 80048; 80053; 80076; 81003; 81015; 82550; 82553; 82962; 83690; 83735; 83880; 84100; 84484; 85025; 85610; 85730; 87077; 87086; 87088; 87186; 93005; 96374; 97163; 99285; J0696; J2405; J7030

== ENCOUNTER 2023-10-23 05:46 | Inpatient (IN) | payer OTHER ==
[2023-10-23] MEDS ORDERED: ONDANSETRON 4 MG/2 ML VIAL ONE (06:07)
[2023-10-23] MEDS ORDERED: HYDRALAZINE HCL 20 MG/ML VIAL ONE (06:07)
[2023-10-23] MEDS ORDERED: MORPHINE 4 MG/ML SYR ONE (06:07)
[2023-10-23 06:22] LABS: Absolute Eosinophils 0.1 K/uL (0-0.5); Absolute Lymphocytes (CBC) 2.9 K/uL (0.7-4.9); Absolute Neutrophil 4.6 K/uL (1.8-8.0); Basophils % 0.4 % (0-1.3); Eosinophils % 0.9 % (0-4.4); Hematocrit 42.3 % (36.0-45.0); Lymphocytes % 33.5 % (15.3-44.8); MCH 31.7 pg (27.0-35.0); MCHC 33.1 g/dL (32.0-36.0); MCV 95.8 fL (80-100); MPV 8.5 fL (7.6-11.3); Monocytes % 11.9 % (3.3-12.3); Neutrophils % 53.3 % (41.7-73.7); Platelets 300 thou/uL (152-406); RBC Red Blood Cell Count 4.41 M/uL (3.86-4.86); Red Cell Distribution Width 14.1 % (12.1-15.2)
[2023-10-23 06:29] LABS: PT Prothrombin Time 11.3 SECONDS (9.5-12.5); Protime INR 1.03
[2023-10-23] MEDS ORDERED: METOPROLOL TAR 50 MG TAB ONE (06:32)
[2023-10-23] MEDS ORDERED: METOPROLOL TARTRATE 5 MG/5 ML INJ IV ONE (06:33)
[2023-10-23] MEDS ORDERED: FAMOTIDINE 20 MG/2 ML VIAL IV ONE (06:33)
[2023-10-23 06:46] LABS: Albumin 4.2 g/dL (3.4-5.0); Albumin/Globulin Ratio 1.2 (1.1-1.8); Anion Gap 11.6 mEq/L (5.0-15.0); Bilirubin Direct 0.2 mg/dL (0-0.2); Bilirubin Indirect, Calculated 0.5 mg/dL (0.2-0.8); Bilirubin Total 0.7 mg/dL (0.2-1.0); Globulin 3.5 g/dL (2.3-3.5); Magnesium 1.5 mg/dL (1.6-2.4); Potassium 3.6 mEq/L (3.5-5.1); Protein, Total 7.7 g/dL (6.4-8.2); Thyroid Stimulating Hormone 2.56 uIU/mL (0.358-3.740); Troponin High Sensitivity 49.2 pg/mL (<58.9)
--- NOTE | 2023-10-23 07:00 | ER ---
Nurse's Notes [facility] Name: Sherrell Palma Age: 83 yrs Sex: Female : 1940 Arrival Date: 10/23/2023 Time: 05:46 Bed 4 Private MD: Diagnosis: Chest pain, unspecified;Essential (primary) hypertension;Hypomagnesemia Presentation: 10/22 05:53 Chief complaint: EMS states: Pt reports having chest discomfort, does not know when it jb4 started. Took adult aspirin for the pain. We gave another 324 ASA. The pain radiates to REX arms and both sides of the neck. Initiated 20g in the LAC. Coronavirus screen: At this time, the client does not indicate any symptoms associated with coronavirus-19. Ebola Screen: No symptoms or risks identified at this time. Initial Sepsis Screen: Does the patient meet any 2 criteria? No. Patient's initial sepsis screen is negative. Does the patient have a suspected source of infection? No. Patient's initial sepsis screen is negative. Risk Assessment: Do you want to hurt yourself or someone else? Patient reports no desire to harm self or others. Onset of symptoms was October 23, 2023. Transition of care: patient was not received from another setting of care. 05:53 Method Of Arrival: EMS: [facility] jb4 05:53 Acuity: LUCY 2 jb4 Historical: - Allergies: 05:57 Amoxicillin; jb4 05:57 metformin; jb4 05:57 Niacin; jb4 05:57 PENICILLINS; jb4 05:57 WelChol; jb4 05:57 Zocor; jb4 - PMHx: 05:57 breast cancer; Diabetes - NIDDM; GERD; Hyperlipidemia; Hypertension; Myocardial jb4 infarction; SVT; - Immunization history:: Adult Immunizations up to date. - Infectious Disease History:: Denies. - Social history:: Smoking status: Patient denies any tobacco usage or history of. Screenin:00 [facility] ED Fall Risk Assessment (Adult) History of falling in the last 3 months, rs5 including since admission Yes- single mechanical fall (1 pt) Confusion or Disorientation No (0 pts) Intoxicated or Sedated No (0 pts) Impaired Gait Yes (1 pt) Mobility Assist Device Used Yes (1 pt) Altered Elimination No (0 pt) Score/Fall Risk Level 3 or more points = High Risk Oriented to surroundings, Maintained a safe environment, Provided non-skid footwear. Abuse screen: Denies threats or abuse. Nutritional screening: No deficits noted. Tuberculosis screening: No symptoms or risk factors identified. Assessment: 05:57 General: Appears in no apparent distress. comfortable, Behavior is calm, cooperative, jb4 appropriate for age. Pain: Complains of pain in chest Pain radiates to right arm, left arm and neck Pain currently is 4 out of 10 on a pain scale. Quality of pain is described as aching, Pain began 4 hours ago. Neuro: Level of Consciousness is awake, alert, obeys commands, Oriented to person, place, time, situation. Cardiovascular: Patient's skin is warm and dry. Respiratory: Airway is patent Respiratory effort is even, labored, Respiratory pattern is regular, symmetrical. GI: No signs and/or symptoms were reported involving the gastrointestinal system. : No signs and/or symptoms were reported regarding the genitourinary system. EENT: No signs and/or symptoms were reported regarding the EENT system. Derm: Skin is intact, Skin is pink, warm \T\ dry. Musculoskeletal: Circulation, motion, and sensation intact. Range of motion: intact in all extremities. 07:01 General: Appears in no apparent distress. comfortable, Behavior is calm, cooperative. rs5 Pain: Denies pain. Neuro: Level of Consciousness is awake, alert, obeys commands, Oriented to person, place, time, situation. Cardiovascular: Patient's skin is warm and dry. Rhythm is regular. Respiratory: Respiratory effort is even, unlabored, Respiratory pattern is regular, symmetrical. GI: Abdomen is round non-distended. 07:45 Reassessment: No changes from previously documented assessment. rs5 08:30 Reassessment: Patient and/or family updated on plan of care and expected duration. Pain rs5 level reassessed. Patient is alert, oriented x 3, equal unlabored respirations, skin warm/dry/pink. Patient denies pain at this time. Vital Signs: 05:53 BP 183 / 112; Pulse 108; Resp 16; Temp 97.7(TE); Pulse Ox 97% on R/A; Weight 75.75 kg jb4 (M); Height 5 ft. 0 in. ; Pain 4/10; 06:30 BP 148 / 77; Pulse 71; Resp 16; Pulse Ox 95% on R/A; jb4 07:09 BP 112 / 70; Pulse 74; Resp 17; Pulse Ox 96% on 2 lpm NC; rs5 08:29 BP 141 / 64; Pulse 59; Resp 16; Pulse Ox 98% ; ko1 08:30 BP 127 / 74; Pulse 77; Resp 17; Pulse Ox 96% on R/A; rs5 05:53 Body Mass Index 32.61 (75.75 kg, 152.4 cm) jb4 05:53 Pain Scale: Adult jb4 ED Course: 05:47 Patient arrived in ED. jj6 05:57 Triage completed. jb4 05:57 Arm band placed on right wrist. EKG completed in triage. Results shown to MD. jb4 05:57 Patient has correct armband on for positive identification. Placed in gown. Bed in low jb4 position. Call light in reach. Side rails up X 1. Provided Education on: Plan of care. Client placed on continuous cardiac and pulse oximetry monitoring. NIBP monitoring applied. playground monitor on. Pulse ox on. 05:57 Maintain EMS IV. Dressing intact. Good blood return noted. Site clean \T\ dry. Gauge \T\ fito 4 site: 20g LAC. O2 via RA. 05:59 Shaun Baez MD is Attending Physician. sp4 06:03 Attending Physician role handed off by Shaun Baez MD lucía 06:03 Henrique Mary MD is Attending Physician. lucía 06:18 XRAY Chest (1 view) In Process Unspecified. EDMS 06:59 Grzegorz Nguyen MD is Hospitalizing Provider. lucía 07:12 Alex Anna, EDDY is Primary Nurse. rs5 07:34 No provider procedures requiring assistance completed. rs5 08:31 Patient admitted, IV remains in place. rs5 Administered Medications: 06:17 Drug: Ondansetron IVP 4 mg IVP once; over 2 minutes Route: IVP; Site: left antecubital; jb4 06:40 Follow up: Response: No adverse reaction rs5 06:17 Drug: hydrALAZINE IVP 10 mg IVP once Route: IVP; Site: left antecubital; jb4 06:40 Follow up: Response: No adverse reaction rs5 06:17 Not Given (given by EMSs): aspirinchewable tablet 162 mg PO once jb4 06:18 Drug: morphine IVP or IV 4 mg IVP once over 4 mins Route: IVP; Infused Over: 4 mins; jb4 Site: left antecubital; 06:40 Follow up: Response: No adverse reaction; Pain is decreased rs5 06:39 Drug: Metoprolol PO 50 mg PO once Route: PO; jb4 07:35 Follow up: Response: No adverse reaction rs5 06:39 Drug: Metoprolol IVP 5 mg IVP once; Hold for SBP <100 or HR <60. Route: IVP; Site: left jb4 antecubital; 06:39 Drug: Famotidine IVP 20 mg IVP once; dilute with 10 mL 0.9% NaCl; give over 2 minutes jb4 Route: IVP; Site: left antecubital; 07:00 Follow up: Response: No adverse reaction rs5 06:50 Drug: Metoprolol IVP 5 mg IVP once; Hold for SBP <100 or HR <60. Route: IVP; Site: left jb4 antecubital; 07:15 Drug: Magnesium Sulfate IVPB 2 grams IVPB once over 1 hrs Route: IVPB; Infused Over: 1 rs5 hrs; Site: left antecubital; 07:30 Follow up: Response: No adverse reaction rs5 07:15 Drug: Enoxaparin Sub-Q 1 mg/kg Sub-Q once Route: Sub-Q; Site: right lower abdomen; rs5 07:30 Follow up: Response: No adverse reaction rs5 Medication: 05:57 VIS not applicable for this client. jb4 Outcome: 06:59 Decision to Hospitalize by Provider. lucía 08:31 Admitted to ER Hold. Please see [facility] for further documentation. rs5 08:31 Condition: stable 08:31 Instructed on the need for admit, Demonstrated understanding of instructions, 11:54 Patient left the ED. ko1 Signatures: Dispatcher [employer] EDHenrique Simms MD MD cha Bryson, James RN RN jb4 Yamilex Gustafson jj6 Chandni Soares RN RN ko1 Alex Anna RN RN rs5 Shaun Baez MD MD sp4
--- NOTE | 2023-10-23 07:00 | EDPHYS ---
Physician Documentation [facility] Name: Sherrell Palma Age: 83 yrs Sex: Female : 1940 Arrival Date: 10/23/2023 Time: 05:46 Bed 4 Private MD: ED Physician Henrique Mary HPI: 10/22 05:59 This 83 yrs old Female presents to ER via EMS with complaints of Chest Pain. sp4 Historical: - Allergies: 05:57 Amoxicillin; jb4 05:57 metformin; jb4 05:57 Niacin; jb4 05:57 PENICILLINS; jb4 05:57 WelChol; jb4 05:57 Zocor; jb4 - PMHx: 05:57 breast cancer; Diabetes - NIDDM; GERD; Hyperlipidemia; Hypertension; Myocardial jb4 infarction; SVT; - Immunization history:: Adult Immunizations up to date. - Infectious Disease History:: Denies. - Social history:: Smoking status: Patient denies any tobacco usage or history of. ROS: 06:12 Constitutional: Negative for fever, chills, and weight loss, Eyes: Negative for injury, lucía pain, redness, and discharge, ENT: Negative for injury, pain, and discharge, Respiratory: Negative for shortness of breath, cough, wheezing, and pleuritic chest pain, Abdomen/GI: Negative for abdominal pain, nausea, vomiting, diarrhea, and constipation, Back: Negative for injury and pain, : Negative for injury, bleeding, discharge, and swelling, MS/Extremity: Negative for injury and deformity, Skin: Negative for injury, rash, and discoloration, Neuro: Negative for headache, weakness, numbness, tingling, and seizure, Psych: Negative for depression, anxiety, suicide ideation, homicidal ideation, and hallucinations, Allergy/Immunology: Negative for hives, rash, and allergies, Endocrine: Negative for neck swelling, polydipsia, polyuria, polyphagia, and marked weight changes, Hematologic/Lymphatic: Negative for swollen nodes, abnormal bleeding, and unusual bruising, 06:12 Neck: Positive for pain at rest, of the chin, right jaw and left jaw and neck and left arm, 06:12 Cardiovascular: Positive for chest pain, of the chest, 06:12 Respiratory: Positive for shortness of breath, at rest. Exam: 06:12 Constitutional: This is a well developed, well nourished patient who is awake, alert, lucía and in no acute distress. Head/Face: Normocephalic, atraumatic. Eyes: Pupils equal round and reactive to light, extra-ocular motions intact. Lids and lashes normal. Conjunctiva and sclera are non-icteric and not injected. Cornea within normal limits. Periorbital areas with no swelling, redness, or edema. ENT: Nares patent. No nasal discharge, no septal abnormalities noted. Tympanic membranes are normal and external auditory canals are clear. Oropharynx with no redness, swelling, or masses, exudates, or evidence of obstruction, uvula midline. Mucous membranes moist. Neck: Trachea midline, no thyromegaly or masses palpated, and no cervical lymphadenopathy. Supple, full range of motion without nuchal rigidity, or vertebral point tenderness. No Meningismus. Chest/axilla: Normal chest wall appearance and motion. Nontender with no deformity. No lesions are appreciated. Cardiovascular: Regular rate and rhythm with a normal S1 and S2. No gallops, murmurs, or rubs. Normal PMI, no JVD. No pulse deficits. Respiratory: Lungs have equal breath sounds bilaterally, clear to auscultation and percussion. No rales, rhonchi or wheezes noted. No increased work of breathing, no retractions or nasal flaring. Abdomen/GI: Soft, non-tender, with normal bowel sounds. No distension or tympany. No guarding or rebound. No evidence of tenderness throughout. Back: No spinal tenderness. No costovertebral tenderness. Full range of motion. Female : Normal external genitalia. Skin: Warm, dry with normal turgor. Normal color with no rashes, no lesions, and no evidence of cellulitis. MS/ Extremity: Pulses equal, no cyanosis. Neurovascular intact. Full, normal range of motion. Neuro: Awake and alert, GCS 15, oriented to person, place, time, and situation. Cranial nerves II-XII grossly intact. Motor strength 5/5 in all extremities. Sensory grossly intact. Cerebellar exam normal. Normal gait. Psych: Awake, alert, with orientation to person, place and time. Behavior, mood, and affect are within normal limits. 06:12 ECG was reviewed by the Attending Physician. 07:00 ECG was reviewed by the Attending Physician. [facility] Vital Signs: 05:53 BP 183 / 112; Pulse 108; Resp 16; Temp 97.7(TE); Pulse Ox 97% on R/A; Weight 75.75 kg jb4 (M); Height 5 ft. 0 in. ; Pain 4/10; 06:30 BP 148 / 77; Pulse 71; Resp 16; Pulse Ox 95% on R/A; jb4 07:09 BP 112 / 70; Pulse 74; Resp 17; Pulse Ox 96% on 2 lpm NC; rs5 08:29 BP 141 / 64; Pulse 59; Resp 16; Pulse Ox 98% ; ko1 08:30 BP 127 / 74; Pulse 77; Resp 17; Pulse Ox 96% on R/A; rs5 05:53 Body Mass Index 32.61 (75.75 kg, 152.4 cm) jb4 05:53 Pain Scale: Adult jb4 MDM: 06:03 Patient medically screened. [facility] 06:14 Differential diagnosis: abnormal EKG, acute myocardial infarction, acute pericarditis, lucía chest wall pain, Cholelithiasis costochondritis, esophagitis, herpes zoster, hiatal hernia, pancreatitis, peptic ulcer disease, pericarditis, pneumonia, pulmonary embolus, stable angina, thoracic aortic disection, unstable angina. HEART Score: History: Moderately Suspicious (1), ECG: Non specific repolarization disturbance / LBTB / PM (1), Age: > or = 65 years (2), Risk Factors: > or = 3 Risk factors for atherosclerotic disease (2), [Hypercholesterolemia] [Hypertension] [DM] [+ Family HX] [Obesity] Troponin: < or = 1 x Normal Limit (0). The patient was given aspirin in the Emergency Department. MARGIE Risk Score: 1 - patient's age is greater or equal to 65 years, 1 - Three or more CAD risk factors, 1- Known CAD, 1 - Recent [<24hrs] Severe Angina. Data reviewed: vital signs, nurses notes, lab test result(s), EKG, radiologic studies. Consideration of Admission/Observation Patient was admitted/placed on observation. Escalation of care including admission/observation considered. I considered the following discharge prescriptions or medication management in the emergency department Medications were administered in the Emergency Department. See MAR. Test considered but Not performed: CT: ct chest. Care significantly affected by the following chronic conditions: Diabetes, Hypertension, Obesity, gerd,niddm. Counseling: I had a detailed discussion with the patient and/or guardian regarding the historical points, exam findings, and any diagnostic results supporting the discharge/admit diagnosis, the presence of at least one elevated blood pressure reading (>120/80) during this emergency department visit, lab results, radiology results, the need for further work-up and treatment in the hospital. 10/22 05:59 Order name: Basic Metabolic Panel; Complete Time: 06:54 sp4 10/22 05:59 Order name: CBC with Diff; Complete Time: 06:54 sp4 10/22 05:59 Order name: LFT's; Complete Time: 06:54 sp4 10/22 05:59 Order name: Magnesium; Complete Time: 06:54 sp4 10/22 05:59 Order name: NT PRO-BNP; Complete Time: 06:54 sp4 10/22 05:59 Order name: PT-INR; Complete Time: 06:54 sp4 10/22 05:59 Order name: Troponin HS; Complete Time: 06:54 sp4 10/22 06:00 Order name: TSH; Complete Time: 06:54 sp4 10/22 06:00 Order name: T4 Free; Complete Time: 06:54 sp4 10/22 08:19 Order name: Basic Metabolic Panel EDMS 10/22 08:19 Order name: Basic Metabolic Panel EDMS 10/22 08:19 Order name: CBC with Automated Diff EDMS 10/22 08:19 Order name: CBC with Automated Diff EDMS 10/22 08:19 Order name: Lipid Profile EDMS 10/22 08:19 Order name: Lipid Profile EDMS 10/22 08:19 Order name: Troponin High Sensitivity EDMS 10/22 08:19 Order name: Troponin High Sensitivity EDMS 10/22 08:19 Order name: Troponin High Sensitivity EDMS 10/22 08:19 Order name: Troponin High Sensitivity EDMS 10/22 08:19 Order name: Troponin High Sensitivity EDMS 10/22 08:21 Order name: Hemoglobin A1c EDMS 10/22 05:59 Order name: XRAY Chest (1 view) sp4 10/22 08:19 Order name: Echo with Doppler EDMS 10/22 08:19 Order name: Extrem Venous W Compress Maykel EDMS 10/22 05:59 Order name: EKG; Complete Time: 06:00 sp4 10/22 06:47 Order name: EKG; Complete Time: 06:48 lucía 10/22 08:19 Order name: CONS Physician Consult EDMN 10/22 05:59 Order name: Cardiac monitoring; Complete Time: 06:00 sp4 10/22 05:59 Order name: EKG - Nurse/Tech; Complete Time: 06:00 sp4 10/22 05:59 Order name: IV Saline Lock; Complete Time: 06:00 sp4 10/22 05:59 Order name: Labs collected and sent; Complete Time: 06:00 sp4 10/22 05:59 Order name: O2 Per Protocol; Complete Time: 06:00 sp4 10/22 05:59 Order name: O2 Sat Monitoring; Complete Time: 06:00 sp4 10/22 06:47 Order name: EKG - Nurse/Tech; Complete Time: 06:59 lucía EC:12 Rate is 98 beats/min. Rhythm is regular. QRS [place] is Normal. [place] interval is prolonged lucía at 226 msec. QRS interval is normal. QT interval is normal. No Q waves. T waves are Normal. No ST changes noted. Clinical impression: NSR w/ Non-specific ST/T Changes and No evidence of ischemia. Interpreted by me. Reviewed by me. 07:00 Rate is 83 beats/min. Rhythm is irregularly irregular. QRS [place] is Normal. QRS interval lucía is normal. QT interval is normal. No Q waves. T waves are Normal. No ST changes noted. Clinical impression: LVH. Interpreted by me. Reviewed by me. Administered Medications: 06:17 Drug: Ondansetron IVP 4 mg IVP once; over 2 minutes Route: IVP; Site: left antecubital; jb4 06:40 Follow up: Response: No adverse reaction rs5 06:17 Drug: hydrALAZINE IVP 10 mg IVP once Route: IVP; Site: left antecubital; jb4 06:40 Follow up: Response: No adverse reaction rs5 06:17 Not Given (given by EMSs): aspirinchewable tablet 162 mg PO once jb4 06:18 Drug: morphine IVP or IV 4 mg IVP once over 4 mins Route: IVP; Infused Over: 4 mins; jb4 Site: left antecubital; 06:40 Follow up: Response: No adverse reaction; Pain is decreased rs5 06:39 Drug: Metoprolol PO 50 mg PO once Route: PO; jb4 07:35 Follow up: Response: No adverse reaction rs5 06:39 Drug: Metoprolol IVP 5 mg IVP once; Hold for SBP <100 or HR <60. Route: IVP; Site: left jb4 antecubital; 06:39 Drug: Famotidine IVP 20 mg IVP once; dilute with 10 mL 0.9% NaCl; give over 2 minutes jb4 Route: IVP; Site: left antecubital; 07:00 Follow up: Response: No adverse reaction rs5 06:50 Drug: Metoprolol IVP 5 mg IVP once; Hold for SBP <100 or HR <60. Route: IVP; Site: left jb4 antecubital; 07:15 Drug: Magnesium Sulfate IVPB 2 grams IVPB once over 1 hrs Route: IVPB; Infused Over: 1 rs5 hrs; Site: left antecubital; 07:30 Follow up: Response: No adverse reaction rs5 07:15 Drug: Enoxaparin Sub-Q 1 mg/kg Sub-Q once Route: Sub-Q; Site: right lower abdomen; rs5 07:30 Follow up: Response: No adverse reaction rs5 Disposition Summary: 10/23/23 06:59 Hospitalization Ordered Notes: Hospitalization Status: Inpatient Admission lucía Provider: Grzegorz Nguyen lucía Condition: Fair lucía Problem: new lucía Symptoms: have improved lucía Bed/Room Type: Standard lucía Location: Telemetry/MedSurg (Inpatient)(10/23/23 11:00) em1 Room Assignment: [facility](10/23/23 11:00) em1 Diagnosis - Chest pain, unspecified lucía - Essential (primary) hypertension lucía - Hypomagnesemia lucía Forms: - Medication Reconciliation Form lucía - SBAR form lucía - Leadership Thank You Letter lucía Signatures: Dispatcher [employer] EDHenrique Simms MD MD cha Martinez, Eric em1 Matt Abel RN RN jb4 Alex Anna RN RN rs5 Shaun Baez MD MD sp4 Corrections: (The following items were deleted from the chart) 06:00 06:00 BASIC METABOLIC PANEL+C.LAB.BRZ ordered. EDMS EDMS 06:00 06:00 CBC+H.LAB.BRZ ordered. EDMS EDMS 06:00 06:00 HEPATIC FUNCTION+C.LAB.BRZ ordered. EDMS EDMS 06:00 06:00 MAGNESIUM+C.LAB.BRZ ordered. EDMS EDMS 06:00 06:00 PROBNP+C.LAB.BRZ ordered. EDMS EDMS 06:00 06:00 PROTIME (+INR)+COAG.LAB.BRZ ordered. EDMS EDMS 06:00 06:00 Troponin High Sensitivity+C.LAB.BRZ ordered. EDMS EDMS 08:35 06:59 Telemetry/MedSurg (Inpatient) lucía em1 08:35 06:59 lucía em1 11:00 08:[address] [facility] ER HOLD em1 em1 11:00 08:35 ERHOLD- em1 em1
[2023-10-23] MEDS ORDERED: ENOXAPARIN 80 MG/0.8 ML SQ ONE (07:14)
[2023-10-23] MEDS ORDERED: Magnesium Sulfate 2gm IVPB 2 G/50 ML BAG IV ONE (07:14)
--- NOTE | 2023-10-23 07:56 | P.HP ---
Certification for Inpatient Patient admitted to: Inpatient With expected LOS: >2 Midnights <Katherine Vu - Last Filed: 10/23/23 08:17> Patient History Date of Service: 10/23/23 Reason for admission: angina, htn History of Present Illness: Ms. Palma is a 83-year-old with a past medical history of bjp-mklcaog-mlpjzchth diabetes, right breast cancer status post mastectomy, hypertension hyperlipid emia, a. fib, and gerd. She used to see Dr. Maddox but states she stopped seeing him and stopped taking all of her medicines greater than 1 year ago. This morning she had a sudden onset of bilateral jaw pain, chest pain, and mild shortness of breath. She states she went to lie down, feeling like it would pass, but after 10 minutes she called EMS and presented to the emergency department. EMS administered 324 mg chewable aspirin. Vital signs on arrival to the emergency department 183/112, 108, 16, 97.7, 97% on room air, weight 75.75 kg. In the emergency department she was treated with hydralazine 10 mg IV x 1, Zofran 4 mg IV x 1, morphine 4 mg IV x 1, Pepcid 20 mg IV times. Metoprolol 50 mg p.o. and metoprolol 5 mg IV x 2 doses were administered. We will admit her for further evaluation and treatment with cardiology consultation. Labs: CBC unremarkable, sodium 134, potassium 3.6, chloride 100, bicarb 26, BUN 26, creatinine 0.94 with a GFR of 60, glucose 256, magnesium 1.5, proBNP 664, troponin 49.2, TSH 2.56, free T4 1.34, INR 1.03 Imaging Chest x-ray pending Home medications list reviewed: Yes (Pt not taking x 1 year) - Past Medical/Surgical History Diabetic: Yes -: NIDDM -: A-FIB -: CANCER- RIGHT BREAST -: HYPERTENSION -: hyperlipidemia -: gerd -: SHANE -: HYSTERECTOMY -: R SIDE MASTECTOMY -: APPENDECTOMY -: R EYE CATARACT SX -: PARTIAL THYROID REMOVAL Psychosocial/ Personal History: Lives at home alone, Son comes daily. Pt had fall in shower 10/26 - Family History Sister -: Heart disease Mother -: Heart disease, Hypertension Notes: unknown heart condition- was in her 80s when she . - Social History Smoking Status: Unknown if ever smoked Alcohol use: No CD- Drugs: No Caffeine use: Yes Place of Residence: Home <Katherine Vu - Last Filed: 10/23/23 08:17> Date of Service: 10/23/23 <Grzegorz Nguyen - Last Filed: 10/23/23 15:52> Allergies amoxicillin Allergy (Mild, Verified 11/25/17 23:02) Hives/Rash colesevelam HCl [From WelChol] Allergy (Mild, Verified 11/25/17 23:02) diarrhea niacin Allergy (Mild, Verified 11/25/17 23:02) Nausea/Vomiting Penicillins Allergy (Mild, Verified 11/25/17 23:02) Hives/Rash simvastatin [From Zocor] Allergy (Mild, Verified 11/25/17 23:02) generalized pain metformin Allergy (Verified 11/25/17 23:02) Unknown Home Medications: Glimepiride 4 mg PO BID 11/15/14 Loperamide [Imodium*] 2 mg PO PRN PRN 11/15/14 Losartan Potassium [Cozaar] 25 mg PO DAILY 11/26/17 Trazodone [Desyrel*] 50 mg PO BEDTIME 11/26/17 Aspirin Chewable [Aspirin Chewable*] 81 mg PO DAILY #30 tab.chew 11/28/17 Prasugrel Hydrochloride [Effient*] 10 mg PO DAILY #30 tab 11/28/17 Metoprolol Tartrate [Lopressor*] 12.5 mg PO BID 6AM 6PM #60 tab 12/04/17 levoFLOXacin [Levaquin*] 500 mg PO DAILY #3 tab 12/04/17 Review of Systems 10-point ROS is otherwise unremarkable Respiratory: Shortness of Breath Cardiovascular: Chest Pain, As per HPI <Katherine Vu - Last Filed: 10/23/23 08:17> Physical Examination - Physical Exam General: Alert, In no apparent distress, Oriented x3, Obese HEENT: Atraumatic, Normocephalic Neck: Supple Respiratory: Normal air movement, Other (On O2 at assessment) Cardiovascular: No edema, Regular rate/rhythm Capillary refill: <2 Seconds Gastrointestinal: Soft and benign Musculoskeletal: No clubbing, No swelling Integumentary: Other (rash to right chest wall (recurrent)) Neurological: Normal speech, Normal tone, Normal affect Lymphatics: No axilla or inguinal lymphadenopathy External genitalia: Deferred Rectal: Deferred - Studies Laboratory Data (last 24 hrs) 10/23/23 10/23/23 10/23/23 Unknown 06:00 06:00 WBC 8.50 Hgb 14.0 Hct 42.3 Plt Count 300 PT 11.3 INR 1.03 Sodium 134 L Potassium 3.6 BUN 26 H Creatinine 0.94 Glucose 256 H Magnesium 1.5 L Total Bilirubin 0.7 AST 14 L ALT 18 Alkaline Phosphatase 83 <Katherine Vu - Last Filed: 10/23/23 08:17> - Studies Laboratory Data (last 24 hrs) 10/23/23 10/23/23 06:00 06:00 WBC 8.50 Hgb 14.0 Hct 42.3 Plt Count 300 Sodium 134 L Potassium 3.6 BUN 26 H Creatinine 0.94 Glucose 256 H Magnesium 1.5 L Total Bilirubin 0.7 AST 14 L ALT 18 Alkaline Phosphatase 83 <Grzegorz Nguyen - Last Filed: 10/23/23 15:52> Assessment and Plan - Plan Angina tele monitor and trend pain and cardiac enzymes pain control consult cardiology HTN Monitor and trend metoprolol 50mg po daily Lisinopril 10mg po daily HLD check lipids Fish oil pt declines statin A. fib hx Continue medications for rate control Anticoagulation Echocardiogram US lower extremities Electrolyte imbalance trend and replete prn Glucose monitoring with SSI Hgb A1c GERD Pepcid 20mg IV BID Medication noncompliance x 1 yr, encourage to seek/heed medical care GI and DVT prophylaxis As above - Advance Directives Does patient have a Living Will: No Does patient have a Durable POA for Healthcare: No <Katherine Vu - Last Filed: 10/23/23 08:17> - Plan Pt seen and examined. I agree with the note by the WASTE RECYCLER. Pt is a an 83yo female with past medical history of gep-qmwdyiq-jfhxiveqv diabetes, right breast cancer status post mastectomy, hypertension hyperlipidemia, a. fib, and GERD who presents with SOB and chest pain. Pt reports that he had bilateral chest pain that later became associated with chest pain and SOB. The symptoms did not resolve after 10 minutes and pt called EMS. On admission, lab studies show wbc 8.5, Hgb 14, K 3.6. cr 0.94, BNP 664, A1c 10.3, troponin (432<- 158 <- 49.2) and LDL 152. At bedside, pt is in NAD. A/P: NSTEMI: Troponin is trending up 432<- 158 <- 49.2. Will continue heparin drip. Consulted Cardiology. Continue aspirin and atorvastatin. A. fib with RVR: Will continue telemetry, metoprolol and heparin drip DM II: Continue acccuhek, SSI, lantus and ADA Diet. Htn: Continue home med Elevated BNP: Will f/u Echo. Non-compliance: Pt was encouraged to be compliant with home meds. HLD: statin GERD: pepcid Code: full <Grzegorz Nguyen - Last Filed: 10/23/23 15:52>
[2023-10-23] MEDS ORDERED: MORPHINE 4 MG/ML SYR IV PRN (08:10)
[2023-10-23] MEDS: ENOXAPARIN 100 MG/ML SYR SQ SCH (08:58)
[2023-10-23 09:00] VITALS: BMI 32.4
[2023-10-23] MEDS: lisinopriL 10 MG TAB PO SCH (09:00)
[2023-10-23] MEDS: ENOXAPARIN 80 MG/0.8 ML SQ SCH ×2 (09:15→17:46)
[2023-10-23 09:18] LABS: Troponin High Sensitivity 158.7 pg/mL (<58.9)
[2023-10-23] MEDS ORDERED: lisinopriL 5 MG TAB ONE (09:24)
--- NOTE | 2023-10-23 09:35 | RAD REPORT ---
EXAM DESCRIPTION: US - Extrem Venous W Compress Mayekl - 10/23/2023 8:48 am CLINICAL HISTORY: Right leg tender. CA/arrhythmia COMPARISON: None. TECHNIQUE: Real-time sonographic evaluation of the bilateral lower extremity deep venous systems was performed. FINDINGS: Normal compressibility, flow augmentation, phasic flow and spontaneous flow is identified in both the left and right lower extremity deep venous systems. No intraluminal filling defects seen. IMPRESSION: No DVT in either lower extremity.
[2023-10-23] MEDS: PNEUMOCOCCAL VACCINE 0.5 ML IMVAC ONE (10:00)
[2023-10-23] MEDS: INSULIN REGULAR (HUMAN) 100 UNIT/ML SQ SCH (11:30)
--- NOTE | 2023-10-23 11:45 | ECHO ---
HEIGHT: 5 ft 0 in WEIGHT: 166 lb 0 oz DATE OF STUDY: 10/23/[address]: Katherine Vu ELECTRICAL EXPERIMENTAL MECHANIC-BC 2-DIMENSIONAL: YES M.MODE: YES DOPPLER: YES COLOR FLOW: YES TDS: PORTABLE: YES DEFINITY: BUBBLE STUDY: DIAGNOSIS: CHEST PAIN CARDIAC HISTORY: CATHERIZATION: YES SURGERY: NO PROSTHETIC VALVE: NO PACEMAKER: NO MEASUREMENTS (cm) DIASTOLIC (NORMALS) SYSTOLIC (NORMALS) IVSd 1.0 (0.6-1.2) LA Diam 3.4 (1.9-4.0) LVEF 60-65% LVIDd 3.2 (3.5-5.7) LVIDs 2.1 (2.0-3.5) %FS 34% LVPWd 1.1 (0.6-1.2) Ao Diam 2.7 (2.0-3.7) 2 DIMENSIONAL ASSESSMENT: RIGHT ATRIUM: NORMAL LEFT ATRIUM: NORMAL RIGHT VENTRICLE: NORMAL LEFT VENTRICLE: MILD LEFT VENTRICULAR HYPERTROPHY TRICUSPID VALVE: MILD TRICUSPID REGURGITATION MITRAL VALVE: NORMAL PULMONIC VALVE: NORMAL AORTIC VALVE: NORMAL PERICARDIAL EFFUSION: NONE AORTIC ROOT: NORMAL LEFT VENTRICULAR WALL MOTION: NORMAL DOPPLER/COLOR FLOW: GRADE I DIASTOLIC DYSFUNCTION COMMENTS: 1. NORMAL LEFT VENTRICULAR SYSTOLIC FUNCTION, EJECTION FRACTION 60-65%, NORMAL WALL MOTION 2. GRADE I DIASTOLIC DYSFUNCTION 3. MILD ELEVATED FILLING PRESSURE (RIGHT ATRIUM 10-15 mmHg) 4. MILD PULMONARY HYPERTENSION (RIGHT VENTRICULAR SYSTOLIC PRESSURE 40-45 mmHg) TECHNOLOGIST: KIKA MATTHEWS
[2023-10-23] MEDS ORDERED: INSULIN REGULAR (HUMAN) 100 UNIT/ML ONE (11:52)
[2023-10-23] MEDS: PROMETHAZINE 25 MG TABLET PO PRN (13:03)
--- NOTE | 2023-10-23 13:07 | RAD REPORT ---
EXAM DESCRIPTION: RAD - Chest Single View - 10/23/2023 6:16 am CLINICAL HISTORY: CHEST PAIN COMPARISON: None. TECHNIQUE: XR CHEST 1 VIEW 10/23/2023 5:59 AM CDT FINDINGS: Cardiac silhouette is normal in size. Lungs are clear without consolidation, atelectasis, mass or edema. There is no pleural effusion. There is no pneumothorax. There are no acute osseous fin dings. IMPRESSION: Clear lungs. Electronically signed by: Larry Royal MD 10/23/2023 06:30 AM CDT RP Due to temporary technical issues with the PACS/Fluency reporting system, reports are being signed by the in house radiologist without review as a courtesy to ensure prompt reporting. The interpreting r adiologist is fully responsible for the content of the report.
[2023-10-23] MEDS ORDERED: HEPARIN/D5W 25,000 UNIT/500 ML BAG IV SCH (15:00)
--- NOTE | 2023-10-23 19:23 | CON ---
Date of Consultation: 10/23/2023 Reason For Consultation: Chest pain. History Of Present Illness: This is an 83-year-old female, history of diabetes, coronary artery dise ase, hypertension, dyslipidemia, and history of atrial fibrillation, presented to the emergency room because of chest pain that radiates to her jaw and left upper extremity that is on and off and is pro gressively getting worse. At the present time, she is chest pain free, but while in the hospital, tisha ramos has been having short episodes of chest pain that is lasting about 15 to 30 minutes. Past Medical History: As outlined above in the HPI. Medications: Refer reconciliation sheet for detailed list. Allergies: OXACILLIN, NIACIN, SIMVASTATIN, METFORMIN. Family History: No premature coronary artery disease or cancer. Social History: She does not smoke or drink. Does not use any drugs. Past Surgical History: Hysterectomy, mastectomy, appendectomy, and cataract. Social History: Does not smoke or drink. Does not use any drugs. Review of Systems: All systems reviewed and they were negative except as mentioned in the HPI. Physical Examination: Vital Signs: Reviewed. Head and Neck: Pupils are equal, reactive to light. Intact eye movements. No JVD. No cervical lym phadenopathy. Neck is supple. Thyroid is not enlarged. Lungs: Clear to auscultation bilaterally. No rhonchi, rales, or crackles. No accessory muscle use. Heart: Regular rate and rhythm. No extra sounds. Abdomen: Soft, nontender. Bowel sounds positive. No organomegaly. No mass or hernia. No rigidity or rebound. Extremities: No edema, clubbing, cyanosis. Intact pulses. Skin: No rash. No nodule. Neurologic: Alert, awake, oriented x3. No acute focal deficits appreciated. Investigations: Troponin up to 432. BUN is 26, creatinine 0.94, hemoglobin is 14. Assessment/recommendation: 1.Tos-EC-gqtinmxnp myocardial infarction, very typical symptoms. Continue heparin drip. Keep n.p.o . past midnight. Plan for coronary angiogram tomorrow morning and continue aspirin. 2.Hypertension. Blood pressure was very high on admission and it is coming down nicely. Continue c urrent medication. 3.Dyslipidemia. Recommend Lipitor 40 mg at bedtime. 4.Diabetes, way out of control sugars. Recommend low calorie diet and tighter control of her diabet es in the long run. We will monitor the patient with you. /RADHA Voice ID: [id number] Report ID: [id number]
[2023-10-23] MEDS: METOPROLOL TAR 50 MG TAB PO SCH (20:00)
[2023-10-23] MEDS ORDERED: ENOXAPARIN 80 MG/0.8 ML SQ SCH (21:00)
[2023-10-24 04:00] LABS: Absolute Eosinophils 0.1 K/uL (0-0.5); Absolute Lymphocytes (CBC) 2.8 K/uL (0.7-4.9); Absolute Monocytes 1.1 K/uL (0.1-1.3); Absolute Neutrophil 5.5 K/uL (1.8-8.0); Basophils % 0.3 % (0-1.3); Eosinophils % 0.7 % (0-4.4); Hematocrit 39.8 % (36.0-45.0); Lymphocytes % 29.4 % (15.3-44.8); MCH 31.7 pg (27.0-35.0); MCHC 32.6 g/dL (32.0-36.0); Monocytes % 11.8 % (3.3-12.3); Neutrophils % 57.8 % (41.7-73.7); Platelets 270 thou/uL (152-406); RBC Red Blood Cell Count 4.11 M/uL (3.86-4.86)
[2023-10-24 04:13] LABS: Troponin High Sensitivity 381.2 pg/mL (<58.9)
[2023-10-24] MEDS ORDERED: NITROGLYCERIN/D5W 50 MG/250 ML BTL IV ONE (06:09)
[2023-10-24] MEDS ORDERED: HEPA 1000U/500MLS 1,000 UNIT/500 ML BAG IV ONE (06:09)
[2023-10-24] MEDS ORDERED: LIDOCAINE 1% 20 ML MDV ONE (06:10)
[2023-10-24] MEDS ORDERED: HEPARIN 5000 UNIT/ML 1 ML VIAL ONE (06:10)
[2023-10-24] MEDS ORDERED: VERAPAMIL HCL 10 MG/4 ML VIAL IV ONE (06:10)
[2023-10-24] MEDS ORDERED: FENTANYL CITR 100 MCG/2 ML ONE (06:10)
[2023-10-24] MEDS ORDERED: ATROPINE SULF 1 MG/10 ML SYR IV ONE (06:10)
[2023-10-24] MEDS ORDERED: MIDAZOLAM HCL 2 MG/2 ML INJ ONE (06:10)
[2023-10-24] MEDS ORDERED: NALOXONE 0.4 MG/ML VIAL ONE (06:11)
[2023-10-24] MEDS ORDERED: HEPARIN 10,000 UNIT/10 ML VIAL IV ONE (06:11)
[2023-10-24] MEDS ORDERED: TICAGRELOR 90 MG TABLET PO ONE (06:11)
[2023-10-24] MEDS ORDERED: FLUMAZENIL 0.1 MG/ML (5 mL VIAL) IV ONE (06:11)
[2023-10-24] MEDS ORDERED: CLOPIDOGREL 75 MG TABLET ONE (06:12)
[2023-10-24] MEDS ORDERED: ASPIRIN 325 MG TAB ONE (06:12)
[2023-10-24] MEDS ORDERED: NA CHLORIDE 0.9% 500 ML ONE (06:48)
[2023-10-24] MEDS ORDERED: HYDRALAZINE HCL 20 MG/ML VIAL ONE (07:12)
--- NOTE | 2023-10-24 08:14 | OP ---
Date of Procedure: 10/24/2023 Surgeon: BRADLEY GLEZ Procedures Performed: 1.Selective coronary angiogram. 2.Left heart catheterization. Indication: Rnx-QY-cohskzmjw myocardial infarction. Access: Right common femoral artery, 6-Nigerien, closed with StarClose. Complications: None. Bleeding: Less than 50 mL. Total Sedation Time: 30 minutes, used fentanyl and Versed. Description Of Procedure: After risks, benefits, alternatives were explained, the patient agreed to procedure and signed informed consent. The patient was [facility] [place], prepped and draped in usual sterile fashion. Then, I accessed right common femoral artery us ing micropuncture kit, ultrasound guidance, and fluoroscopy. Placed a 6-Nigerien Austin sheath and t ook 6-Nigerien JL4 catheter into the aortic root over a J-wire, engaged left main, took standard views. Then exchanged for 6-Nigerien 3DRC catheter and I could not engage the RCA. It was likely occluded o stially. Then, the catheter was pushed over the wire into the LV, measured the LVEDP. Pullback did not record any gradient. Then I removed the catheter and the sheath, and StarClose was used for clos ure with good hemostasis. Findings: 1.Left main: Mid 70% stenosis with significant drop in blood pressure after engagement. 2.LAD: Proximal diffuse 80% and then has diffuse luminal irregularities. 3.Left circumflex: Proximal 50% and then diffuse 80% stenosis, and there is an OM branch that has m id 80% stenosis. 4.RCA: Likely SERVICE AIDE ostially with collaterals from the LAD. 5.Elevated LVEDP at 20 mmHg. 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 Recommendation: Transfer for CT Surgery evaluation for CABG and if the patient is not a surgical can didate to have a high-risk PCI with Impella assisted for left main, LAD, left circumflex. SR/MODL Voice ID: [id number] Report ID: [id number]
[2023-10-24] MEDS: ASPIRIN EC 81 MG TAB PO SCH (09:00)
[2023-10-24] MEDS: HEPARIN/D5W 25,000 UNIT/500 ML BAG IV SCH (10:00)
--- NOTE | 2023-10-24 11:15 | P.PN ---
Subjective Date of Service: 10/24/23 Chief Complaint: angina, htn Pt resting comfortably in bed. She was sleeping when I saw her. Cardiology did Cardiac cath. No other complaints. Review of Systems General: Unremarkable Eyes: Unremarkable ENT: Unremarkable Respiratory: Unremarkable Cardiovascular: Unremarkable Gastrointestinal: Unremarkable Genitourinary: Unremarkable Musculoskeletal: Unremarkable Integumentary: Unremarkable Neurological: Unremarkable Lymphatics: Unremarkable Physical Examination - Vital Signs Temperature: 97.1 F Blood Pressure: 111/64 Pulse: 78 Respirations: 16 Pulse Ox (%): 98 - Physical Exam General: Alert, In no apparent distress, Oriented x3 HEENT: Atraumatic, Normocephalic, PERRLA Neck: Supple, 2+ carotid pulse no bruit, JVD not distended Respiratory: Clear to auscultation bilaterally, Normal air movement Cardiovascular: No edema, Normal pulses, Regular rate/rhythm, Normal S1 S2 Capillary refill: <2 Seconds Gastrointestinal: Normal bowel sounds, Soft and benign, Non-distended Musculoskeletal: No clubbing, No swelling, No contractures Integumentary: No rashes, No breakdown, No significant lesion Neurological: Normal gait, Normal speech, Normal strength at 5/5 x4 extr, Normal tone, Sensation intact Lymphatics: No axilla or inguinal lymphadenopathy Assessment And Plan - Plan NSTEMI: Troponin is trending up 432<- 158 <- 49.2. Will continue lovenox 80mg subq BID. Consulted Cardiology. Continue aspirin and atorvastatin. Cardiology did cardiac cath today. A. fib with RVR: Will continue telemetry, metoprolol and heparin drip DM II: Continue acccuhek, SSI, lantus 20 U daily, and ADA Diet. Htn: Continue home med Elevated BNP: Will f/u Echo. Non-compliance: Pt was encouraged to be compliant with home meds. HLD: statin GERD: pepcid Code: full Dispo: Pending hospital course. cardiology will do cardiac cath today.
[2023-10-24] MEDS: INSULIN GLARGINE 100 UNIT/ML SQ SCH (11:45)
[2023-10-24 12:40] VITALS: O2SAT 92
--- NOTE | 2023-10-24 15:51 | P.DS ---
Admission Date: 10/23/23 Discharge Date: 10/24/23 Disposition: ROUTINE DISCHARGE Discharge Condition: GOOD Reason for Admission: angina, htn Brief History of Present Illness: Ms. Palma is a 83-year-old with a past medical history of fae-uczmagz-xcytywgdq diabetes, right breast cancer status post mastectomy, hypertension hyperlipidemia, a. fib, and gerd. She used to see Dr. Maddox but states she stopped seeing him and stopped taking all of her medicines greater than 1 year ago. This morning she had a sudden onset of bilateral jaw pain, chest pain, and mild shortness of breath. She states she went to lie down, feeling like it would pass, but after 10 minutes she called EMS and presented to the emergency department. EMS administered 324 mg chewable aspirin. Vital signs on arrival to the emergency department 183/112, 108, 16, 97.7, 97% on room air, weight 75.75 kg. In the emergency department she was treated with hydralazine 10 mg IV x 1, Zofran 4 mg IV x 1, morphine 4 mg IV x 1, Pepcid 20 mg IV times. Metoprolol 50 mg p.o. and metoprolol 5 mg IV x 2 doses were administered. We will admit her for further evaluation and treatment with cardiology consultation. Labs: CBC unremarkable, sodium 134, potassium 3.6, chloride 100, bicarb 26, BUN 26, creatinine 0.94 with a GFR of 60, glucose 256, magnesium 1.5, proBNP 664, troponin 49.2, TSH 2.56, free T4 1.34, INR 1.03 Hospital Course: Pt is an 83yo female with past medical history of ylt-kdrtdru-mclauxxnb diabetes, right breast cancer status post mastectomy, hypertension hyperlipidemia, a. fib, and GERD who presented with chest pain and SOB. We admitted pt to r/o ACS. troponin trended up and we started therapeutic lovenox. Cardiology did cardiac cath that showed sever multivessel coronary artery disease and they recommended transfer to [facility] for CAB[facility]. We continued home med for other chronic medical problems. Pt was in NAD prior to discharge. Vital Signs/Physical Exam: Temp Pulse Resp BP Pulse Ox 98.1 F 94 H 24 H 137/64 92 10/24/23 12:00 10/24/23 12:00 10/24/23 12:00 10/24/23 12:10/24/23 12:00 Laboratory Data at Discharge: WBC 9.60 thou/uL (4.3-10.9) 10/24/23 03:05 Hgb 13.0 g/dL (12.0-15.0) 10/24/23 03:05 Hct 39.8 % (36.0-45.0) 10/24/23 03:05 Plt Count 270 thou/uL (152-406) 10/24/23 03:05 PT 11.3 SECONDS (9.5-12.5) 10/23/23 Unknown INR 1.03 10/23/23 Unknown APTT 18.9 SECONDS (24.3-36.9) L 10/24/23 10:06 Sodium 136 mEq/L (136-145) 10/24/23 03:05 Potassium 4.0 mEq/L (3.5-5.1) 10/24/23 03:05 BUN 29 mg/dL (7-18) H 10/24/23 03:05 Creatinine 0.98 mg/dL (0.55-1.02) 10/24/23 03:05 Glucose 251 mg/dL (74-106) H 10/24/23 03:05 Magnesium 1.5 mg/dL (1.6-2.4) L 10/23/23 06:00 Total Bilirubin 0.7 mg/dL (0.2-1.0) 10/23/23 06:00 AST 14 U/L (15-37) L 10/23/23 06:00 ALT 18 U/L (13-56) 10/23/23 06:00 Alkaline Phosphatase 83 U/L (45-117) 10/23/23 06:00 Triglycerides 127 mg/dL (<150) 10/23/23 08:39 Cholesterol 216 mg/dL (<200) H 10/23/23 08:39 HDL Cholesterol 39 mg/dL (40-60) L 10/23/23 08:39 Cholesterol/HDL Ratio 5.54 10/23/23 08:39 Home Medications: Glimepiride 4 mg PO BID 11/15/14 Loperamide [Imodium*] 2 mg PO PRN PRN 11/15/14 Trazodone [Desyrel*] 50 mg PO BEDTIME 11/26/17 Aspirin Chewable [Aspirin Chewable*] 81 mg PO DAILY #30 tab.chew 11/28/17 Prasugrel Hydrochloride [Effient*] 10 mg PO DAILY #30 tab 11/28/17 levoFLOXacin [Levaquin*] 500 mg PO DAILY #3 tab 12/04/17 Metoprolol Tartrate [Lopressor*] 25 mg PO BID 30 Days #60 tab 10/24/23 lisinopriL [Prinivil*] 10 mg PO DAILY 60 Days #60 tab 10/24/23 New Medications: Metoprolol Tartrate [Lopressor*] 25 mg PO BID 30 Days #60 tab lisinopriL [Prinivil*] 10 mg PO DAILY 60 Days #60 tab Physician Discharge Instructions: Continue home meds as prescribed. Transfer to [facility] for CABG. Follow up with PCP in 1 - 2 weeks Diet: AHA Activity: Ad carlos Followup: NONE,NONE [Primary Care Provider] -
--- NOTE | 2023-10-24 16:41 | PN ---
Date of Progress Note: 10/24/2023 Subjective: Seen by bedside, status post coronary angiogram. She has severe multivessel disease, in cluding left main. She is still having chest pain on and off, but her troponin is coming down. Review of Systems: Chest pain on and off. No nausea, vomiting, diarrhea. No shortness of breath. No history of urinar y urgency. All other systems reviewed are negative. Physical Examination: Vital signs: Reviewed. Head and Neck: Pupils are equal, reactive to light. Intact eye movements. No JVD. No cervical lym phadenopathy. Neck is supple. Thyroid is not enlarged. Lungs: Clear to auscultation bilaterally. No rhonchi, wheezing, or crackles. No accessory muscle u se. Heart: Regular rate and rhythm. No extra sounds. Abdomen: Soft, nontender. Bowel sounds positive. No organomegaly. No masses or hernia. No rigidi ty or rebound. Extremities: No edema, clubbing, or cyanosis. Intact pulses, Skin: No rash. Neurologic: Alert, awake, and oriented x3. No acute focal deficits appreciated. Investigations: BUN 29, creatinine is 0.9. Troponin down to 381. Assessment/recommendations: 1.Vuz-OW-xfnyiaiun myocardial infarction. Has severe multivessel coronary artery disease. Transfer to [facility]. Discussed the case with CT surgery. Plan for coronary artery bypass [facility]. If the patient is turned down because of the heavily calcified aorta, then Impella assisted p ercutaneous coronary intervention of the left main is to be done and further vascularization of left circumflex. 2.Dyslipidemia. Continue Lipitor. 3.Hypertension. Blood pressure is controlled. Continue current management. 4.Diabetes. Sugars are better. Aggressive control is recommended. SR/MODL Voice ID: [id number] Report ID: [id number]
[2023-10-24 16:51] VITALS: BP 136/63; TEMP 98.6
--- NOTE | 2023-10-26 13:35 | EKG ---
Test Date: 2023-10-23 Test Time: 05:48:45 Community Health Representative: ARASH MEASUREMENT RESULTS: Intervals: Rate: 98 IN: 226 QRSD: 90 QT: 322 QTc: 411 [place]: P: 44 IN: 226 QRS: -20 T: 96 INTERPRETIVE STATEMENTS: Sinus rhythm with marked sinus arrhythmia with 1st degree AV block Anterior infarct, age undetermined Abnormal ECG Compared to ECG 11/28/2017 14:01:43 First degree AV block now present Myocardial infarct finding now present Left-axis deviation no longer present Left ventricular hypertrophy no longer present Electronically Signed On 10-26-23 13:29:31 CDT by Burke Ford
--- NOTE | 2023-10-26 13:35 | EKG ---
Test Date: 2023-10-23 Test Time: 05:50:27 Grocery Store Bagger: ARASH MEASUREMENT RESULTS: Intervals: Rate: 113 CT: QRSD: 82 QT: 360 QTc: 493 [place]: P: CT: QRS: -6 T: 89 INTERPRETIVE STATEMENTS: Sinus tachycardia Nonspecific ST and T wave abnormality Abnormal ECG Electronically Signed On 10-26-23 13:29:29 CDT by Burke Ford
--- NOTE | 2023-10-28 12:46 | EKG ---
Test Date: 2023-10-23 Test Time: 06:53:00 Health And Wellness Sales Consultant: GILDARDO MEASUREMENT RESULTS: Intervals: Rate: 83 [place]: QRSD: 86 QT: 392 QTc: 460 [place]: P: [place]: QRS: -28 T: 31 INTERPRETIVE STATEMENTS: Accelerated Junctional rhythm Minimal voltage criteria for LVH, may be normal variant Anterior infarct, age undetermined Abnormal ECG Compared to ECG 10/23/2023 05:50:27 Accelerated junctional rhythm now present Left ventricular hypertrophy now present Myocardial infarct finding now present Sinus tachycardia no longer present ST (T wave) deviation no longer present Electronically Signed On 10-28-23 12:42:13 CDT by Burke Ford
== END 2023-10-24 18:20 | disposition short-term general hospital (02) | DRG 282 ==
LOC: ER 05:46 → ERHOLD 08:10 → 2ND 11:40
PROVIDERS: ADMIT Hospitalist; ATTEND Hospitalist
PROC: 4A023N7 Measurement of Cardiac Sampling and Pressure, Left Heart, Percutaneous Approach (ICD-10-PCS; principal; 2023-10-24)
PROC: B2111ZZ Fluoroscopy of Multiple Coronary Arteries using Low Osmolar Contrast (ICD-10-PCS; 2023-10-24)
DX: I21.4 Non-ST elevation (NSTEMI) myocardial infarction (principal); I11.9 Hypertensive heart disease without heart failure; I25.10 Atherosclerotic heart disease of native coronary artery without angina pectoris; I25.2 Old myocardial infarction; E83.42 Hypomagnesemia; Z85.3 Personal history of malignant neoplasm of breast; Z90.10 Acquired absence of unspecified breast and nipple; Z90.49 Acquired absence of other specified parts of digestive tract; E11.9 Type 2 diabetes mellitus without complications; K21.9 Gastro-esophageal reflux disease without esophagitis; E78.5 Hyperlipidemia, unspecified; I48.91 Unspecified atrial fibrillation; Z79.01 Long term (current) use of anticoagulants; E89.0 Postprocedural hypothyroidism; E66.9 Obesity, unspecified; Z68.32 Body mass index [BMI] 32.0-32.9, adult
CPT/HCPCS: 36415; 71045; 76937; 80048; 80061; 80076; 82947; 83036; 83735; 83880; 84439; 84443; 84484; 85025; 85610; 85730; 93005; 93306; 93458; 93970; 96372; 96374; 96375; 99152; 99153; 99285; C1760; C1893; J0360; J0461; J1644; J2001; J2250; J2310; J2405; J3010; J3475; J7040; Q0169; Q9967

== ENCOUNTER 2023-11-22 15:39 | Inpatient (IN) | payer OTHER ==
[2023-11-22 16:26] LABS: Absolute Lymphocytes (CBC) 0.8 K/uL (0.7-4.9); Absolute Monocytes 0.4 K/uL (0.1-1.3); Absolute Neutrophil 4.7 K/uL (1.8-8.0); Basophils % 0.5 % (0-1.3); Eosinophils % 0.6 % (0-4.4); Hematocrit 31.3 % (36.0-45.0); Hemoglobin 10.2 g/dL (12.0-15.0); Lymphocytes % 14.1 % (15.3-44.8); MCH 30.9 pg (27.0-35.0); MCHC 32.6 g/dL (32.0-36.0); MCV 94.8 fL (80-100); MPV 7.6 fL (7.6-11.3); Neutrophils % 78.8 % (41.7-73.7); Nucleated Red Blood Cells % 0.4 % (0-0); Platelets 249 thou/uL (152-406); Red Cell Distribution Width 15.3 % (12.1-15.2)
[2023-11-22 16:32] LABS: Protime INR 1.91
[2023-11-22 16:33] LABS: PTT, Activated Partial Thromb 32.3 SECONDS (24.3-36.9)
[2023-11-22 16:37] LABS: Anion Gap 9.9 mEq/L (5.0-15.0); Potassium 3.9 mEq/L (3.5-5.1)
--- NOTE | 2023-11-22 16:37 | RAD REPORT ---
EXAM DESCRIPTION: CT - Ct Stroke Brain Wo Cont - 11/22/2023 4:24 pm CLINICAL HISTORY: STROKE ALERT COMPARISON: No comparisons TECHNIQUE: All CT scans are performed using dose optimization technique as appropriate and may inclu de automated exposure control or mA/KV adjustment according to patient size. FINDINGS: No intracranial hemorrhage, hydrocephalus or extra-axial fluid collection.Dodd white matte r hypoattenuation in the medial posterior frontal lobe, medial left parietal lobe, and at the left as pect of the splenium of the corpus callosum. Small remote appearing left basal ganglia lacunar infarc t. There is some hypoattenuation in the right aspect of the corpus callosum at the genu. This appears chronic. Basal ganglia mineralization . The paranasal sinuses and mastoids are clear. The calvarium is intact. IMPRESSION: Age indeterminate infarct that likely corresponds with the left anterior cerebral artery . MRI could confirm. No acute intracranial hemorrhage.
[2023-11-22 16:40] LABS: Troponin High Sensitivity 255.2 pg/mL (<58.9)
--- NOTE | 2023-11-22 16:59 | RAD REPORT ---
EXAM DESCRIPTION: RAD - Chest Single View - 11/22/2023 4:48 pm CLINICAL HISTORY: AMS COMPARISON: Chest Single View dated 10/23/2023; Chest Single View dated 11/28/2017; Chest Single View dated 11/25/2017; CHEST PA AND LAT 2 VIEW dated 11/21/2010 FINDINGS: Lines: None. Lungs: Diffuse prominence of the pulmonary interstitium. Left lung base not well visualized. Pleural: Possible left pleural effusion . Cardiac: Cardiomegaly. Mediastinum: Within normal limits. Bones: No acute fractures. Other: None IMPRESSION: Pulmonary edema suspected. The left lung base is not well-visualized which could be due to either underpenetration or airspace disease/pleural fluid.
--- NOTE | 2023-11-22 18:24 | EDPHYS ---
Physician Documentation [facility] Name: Sherrell Plama Age: 83 yrs Sex: Female : 1940 Arrival Date: 11/22/2023 Time: 15:39 Bed 19 Private MD: ED Physician Carlos Black HPI: 11/21 18:12 This 83 yrs old Female presents to ER via EMS with complaints of Rectal Bleeding. bo1 18:12 Onset: The symptoms/episode began/occurred gradually, yesterday. Context: the patient bo1 On eliquis and plavix. Pt with hx of atrial fib admitted to [facility] for recent CVA and placed on eliquis and plavix. Sent to [place]. Yesterday, post recent admission, pt has had a nosebleed, "blood" in the urine and some from the rectum. Pt is now being sent to [facility] ER. She is "full code.". Historical: - Allergies: 15:45 Amoxicillin; kc6 15:45 metformin; kc6 15:45 Niacin; kc6 15:45 PENICILLINS; kc6 15:45 WelChol; kc6 15:45 Zocor; kc6 15:45 Sulfa (Sulfonamide Antibiotics); kc6 - PMHx: 15:45 breast cancer; Diabetes - NIDDM; GERD; Hyperlipidemia; Hypertension; Myocardial kc6 infarction; SVT; Atrial fibrillation; Cerebrovascular accident; - PSHx: 15:45 mastectomy; kc6 - Immunization history:: Adult Immunizations up to date. - Infectious Disease History:: Denies. - Social history:: Smoking status: unknown. ROS: 18:18 All other systems are negative, bo1 18:18 Unable to obtain ROS due to altered mental status, 18:27 : Positive for Herrera catheter in place - "dark urine", bo1 18:27 Constitutional: Negative for fever bo1 Exam: 17:56 ECG was reviewed by the Attending Physician. bo1 18:18 Constitutional: The patient appears alert, Elderly, dry lips, non verbal bo1 18:18 Head/face: Exam is negative for acute changes, 18:18 Neck: External neck: no acute changes, 18:18 Chest/axilla: Palpation: no acute changes, 18:18 Respiratory: the patient does not display signs of respiratory distress, Breath sounds: decreased breath sounds, 18:18 Musculoskeletal/extremity: Mild edema and discoloring from recent venous access. 18:18 Neuro: Mentation: confused, 18:26 Constitutional: This is a well developed, nourished patient who is alert, and in no bo1 acute distress. Vital Signs: 15:43 BP 120 / 82; Pulse 90; Resp 19 S; Pulse Ox 100% on 4 lpm NC; Weight 124.28 kg (M); Pain kc6 0/10; 16:56 BP 127 / 77; Pulse 85; Resp 15 S; Pulse Ox 100% on 4 lpm NC; kc6 17:57 BP 122 / 92; Pulse 93; Resp 20 S; Pulse Ox 100% on 4 lpm NC; kc6 19:38 BP 118 / 78; Pulse 89; Resp 16; Temp 97.6(O); Pulse Ox 100% on 4 lpm NC; pc2 15:43 Pain Scale: Adult kc6 Renetta Coma Score: 18:18 Eye Response: to voice(3). Motor Response: withdraws from pain(4). Verbal Response: bo1 confused(4). Total: 11. MDM: 16:03 Patient medically screened. bo1 17:53 Differential diagnosis: Anemia from eliquis/plavix Abnl EKG elevated trop - Non stemi. bo1 Data reviewed: vital signs, senior living records, lab test result(s), cardiac enzymes, CBC, electrolytes, EKG. Management of patient was discussed with the following: Paint Grinder: Dr Xin Garcia MD. ED course: Pt has been stable, continues to be non-verbal (maybe new baseline?). 11/21 16:02 Order name: Basic Metabolic Panel; Complete Time: 16:59 bo1 11/21 16:02 Order name: CBC with Diff; Complete Time: 16:59 bo1 11/21 16:02 Order name: High Sensitivity Troponin; Complete Time: 16:59 bo1 11/21 16:02 Order name: Protime (+inr); Complete Time: 16:59 bo1 11/21 16:02 Order name: Ptt, Activated; Complete Time: 16:59 bo1 11/21 16:03 Order name: Type And Screen; Complete Time: 16:59 bo1 11/21 18:56 Order name: CBC with Automated Diff EDMS 11/21 18:56 Order name: Troponin High Sensitivity EDMS 11/21 18:56 Order name: Troponin High Sensitivity [facility] 11/21 18:56 Order name: Troponin High Sensitivity [facility] 11/21 18:56 Order name: Troponin High Sensitivity [facility] 11/21 18:56 Order name: Troponin High Sensitivity [facility] 11/21 19:04 Order name: Troponin High Sensitivity [facility] 11/21 16:02 Order name: CT Stroke Brain w/o Contrast; Complete Time: 16:59 bo1 11/21 16:02 Order name: Stroke CXR 1 View; Complete Time: 17:05 bo11/21 16:02 Order name: EKG; Complete Time: 16:03 bo11/21 18:56 Order name: CONS Physician Consult [facility] 11/21 16:02 Order name: Accucheck; Complete Time: 16:10 bo11/21 16:02 Order name: Cardiac monitoring; Complete Time: 16:10 bo11/21 16:02 Order name: EKG - Nurse/Tech; Complete Time: 16:10 bo11/21 16:02 Order name: IV Saline Lock; Complete Time: 16:10 bo11/21 16:02 Order name: Labs collected and sent; Complete Time: 16:10 bo11/21 16:02 Order name: NPO; Complete Time: 16:10 bo11/21 16:02 Order name: O2 Per Protocol; Complete Time: 16:10 bo11/21 16:02 Order name: O2 Sat Monitoring; Complete Time: 16:10 bo11/21 16:02 Order name: Stroke Swallow Screen; Complete Time: 16:10 bo EC:56 Rate is 93 beats/min. Rhythm is regular. QRS [place] is Normal. Q waves are Present in bo1 leads I, V1, V2, V3. T waves are Inverted in leads III, aVF, V5, V6. Clinical impression: NSR w/ Non-specific ST/T Changes. Interpreted by me. Reviewed by me. Administered Medications: No medications were administered Disposition Summary: 11/22/23 18:23 Hospitalization Ordered Notes: Hospitalization Status: Observation bo1 Provider: Usman Cook [facility] Location: Telemetry/MedSurg (observation) bo1 Condition: Fair bo1 Problem: new bo1 Symptoms: are unchanged bo1 Bed/Room Type: Standard [facility] Room Assignment: 401(11/22/23 19:12) vk Diagnosis - Subsequent non-ST elevation (NSTEMI) myocardial infarction bo1 - Unspecified atrial fibrillation bo1 - Cerebral infarction due to unspecified occlusion or stenosis of unspecified bo1 anterior cerebral artery Forms: - Medication Reconciliation Form bo1 - SBAR form bo1 - Leadership Thank You Letter bo1 Signatures: Dispatcher [employer] Casie Sullivan RN RN [id number] Nevin Askew Benjamin, MD MD bo1 Corrections: (The following items were deleted from the chart) 19:12 18:23 bo1 vk
--- NOTE | 2023-11-22 18:24 | ER ---
Nurse's Notes [facility] Name: Sherrell Palma Age: 83 yrs Sex: Female : 1940 Arrival Date: 11/22/2023 Time: 15:39 Bed 19 Private MD: Diagnosis: Subsequent non-ST elevation (NSTEMI) myocardial infarction;Unspecified atrial fibrillation;Cerebral infarction due to unspecified occlusion or stenosis of unspecified anterior cerebral artery Presentation: 11/21 15:43 Chief complaint: EMS states: they were toned out to [place] for bloody stool and kc6 blood in urinary catheter. pt was recently discharged from [facility] for a cardiac cath. Coronavirus screen: At this time, the client does not indicate any symptoms associated with coronavirus-19. Ebola Screen: No symptoms or risks identified at this time. Initial Sepsis Screen: Does the patient meet any 2 criteria? Altered Mental Status. Does the patient have a suspected source of infection? No. Patient's initial sepsis screen is negative. Risk Assessment: Do you want to hurt yourself or someone else? Patient reports no desire to harm self or others. Onset of symptoms was November 22, 2023. 15:43 Method Of Arrival: EMS: [facility] kc6 15:43 Acuity: LUCY 3 kc6 Triage Assessment: 15:45 General: Appears in no apparent distress. uncomfortable, well groomed, well developed, kc6 Behavior is cooperative, appropriate for age, drowsy. Pain: Denies pain. EENT: No signs and/or symptoms were reported regarding the EENT system. Neuro: Level of Consciousness is awake, obeys commands, Oriented to person, Appropriate for age. Cardiovascular: Denies chest pain, Capillary refill < 3 seconds Rhythm is sinus rhythm. Respiratory: Airway is patent Trachea midline Respiratory effort is even, with retractions, Respiratory pattern is regular, symmetrical, Breath sounds with crackles bilaterally. the patient has mild shortness of breath. GI: Abdomen is round non-distended. : Herrera in place to gravity drainage clamped Urine is blood tinged. Derm: No signs and/or symptoms reported regarding the dermatologic system. Skin is intact, is fragile, is thin, with poor turgor Skin is dry, Skin is pale, Skin temperature is warm. Musculoskeletal: No signs and/or symptoms reported regarding the musculoskeletal system. Circulation, motion, and sensation intact. Capillary refill < 3 seconds, Range of motion: intact in all extremities. Historical: - Allergies: 15:45 Amoxicillin; kc6 15:45 metformin; kc6 15:45 Niacin; kc6 15:45 PENICILLINS; kc6 15:45 WelChol; kc6 15:45 Zocor; kc6 15:45 Sulfa (Sulfonamide Antibiotics); kc6 - PMHx: 15:45 breast cancer; Diabetes - NIDDM; GERD; Hyperlipidemia; Hypertension; Myocardial kc6 infarction; SVT; Atrial fibrillation; Cerebrovascular accident; - PSHx: 15:45 mastectomy; kc6 - Immunization history:: Adult Immunizations up to date. - Infectious Disease History:: Denies. - Social history:: Smoking status: unknown. Screenin:48 [facility] ED Fall Risk Assessment (Adult) History of falling in the last 3 months, kc6 including since admission No falls in past 3 months (0 pts) Confusion or Disorientation Yes (5 pts) Intoxicated or Sedated No (0 pts) Impaired Gait Yes (1 pt) Mobility Assist Device Used Yes (1 pt) Altered Elimination Yes (1 pt) Score/Fall Risk Level 3 or more points = High Risk. Abuse screen: Denies threats or abuse. Denies injuries from another. Nutritional screening: No deficits noted. Tuberculosis screening: No symptoms or risk factors identified. 16:10 [place] Swallow Protocol Brief Cognitive Screen What is your name? Abnormal Where are you kc6 right now? Abnormal What year is it? Abnormal Oral Mechanism Examination Facial Symmetry: Abnormal Motion: Abnormal Lip Closure: Abnormal Oral Mechanism Result: Abnormal: pt is awake but intermittently drowsy. pt is unable to verbalize any words at this time. pt is reported to have had a stroke within the last week. Dr. Black made aware.. 3 oz Water Swallow Challenge: Pt able to drink all water without stopping, coughing, choking or throat clearing: No Result: FAIL MD Notified: Carlos Black MD. Assessment: 15:48 Reassessment: please see triage. kc6 16:48 Reassessment: Patient appears in no apparent distress at this time. No changes from kc6 previously documented assessment. Patient and/or family updated on plan of care and expected duration. Pain level reassessed. 17:48 Reassessment: Patient appears in no apparent distress at this time. No changes from kc6 previously documented assessment. Patient and/or family updated on plan of care and expected duration. Pain level reassessed. 19:30 Reassessment: Patient appears in no apparent distress at this time. Patient and/or pc2 family updated on plan of care and expected duration. Pain level reassessed. Vital Signs: 15:43 BP 120 / 82; Pulse 90; Resp 19 S; Pulse Ox 100% on 4 lpm NC; Weight 124.28 kg (M); Pain kc6 0/10; 16:56 BP 127 / 77; Pulse 85; Resp 15 S; Pulse Ox 100% on 4 lpm NC; kc6 17:57 BP 122 / 92; Pulse 93; Resp 20 S; Pulse Ox 100% on 4 lpm NC; kc6 19:38 BP 118 / 78; Pulse 89; Resp 16; Temp 97.6(O); Pulse Ox 100% on 4 lpm NC; pc2 15:43 Pain Scale: Adult kc6 [place] Coma Score: 18:18 Eye Response: to voice(3). Motor Response: withdraws from pain(4). Verbal Response: bo1 confused(4). Total: 11. ED Course: 15:43 Patient arrived in ED. kc6 15:45 Triage completed. kc6 15:45 Arm band placed on. kc6 15:48 Casie Barker RN is Primary Nurse. kc6 15:48 Patient has correct armband on for positive identification. Placed in gown. Bed in low kc6 position. Call light in reach. Side rails up X2. color television console monitor on. Pulse ox on. NIBP on. Warm blanket given. Pillow given. 15:48 Maintain EMS IV. Dressing intact. Good blood return noted. Site clean \T\ dry. Gauge \T\ aggie 6 site: 20G LFA. 16:01 Carlos Black MD is Attending Physician. bo1 16:[address] via stretcher. kc6 16:26 CT Stroke Brain w/o Contrast In Process Unspecified. EDMS 16:50 Stroke CXR 1 View In Process Unspecified. EDMS 18:21 Usman Cook MD is Hospitalizing Provider. bo1 Administered Medications: No medications were administered Outcome: 18:23 Decision to Hospitalize by Provider. bo1 20:42 Patient left the ED. pc2 Signatures: Dispatcher [employer] EDMS Barker, Casie, RN RN kc6 Carlos Black MD MD bo1 Jess Kaba, RN RN pc2 Corrections: (The following items were deleted from the chart) 17: 15:45 Cardiovascular: Denies chest pain, Capillary refill < 3 seconds Rhythm is sinus kc6 rhythm kc6 17:10 15:45 Respiratory: Airway is patent Trachea midline Respiratory effort is even, kc6 unlabored, Respiratory pattern is regular, symmetrical, kc6
--- NOTE | 2023-11-22 18:57 | P.HP ---
Patient History Date of Service: 11/22/23 Reason for admission: Possible myocardial infarction History of Present Illness: Patient is 83 years of age was just transferred from [facility] to [facility] found to have some hematuria bloody stools sent here from the emergency room patient is currently nonverbal some respiratory distress short of breath bleeding noted Allergies amoxicillin Allergy (Mild, Verified 11/25/17 23:02) Hives/Rash colesevelam HCl [From WelChol] Allergy (Mild, Verified 11/25/17 23:02) diarrhea niacin Allergy (Mild, Verified 11/25/17 23:02) Nausea/Vomiting Penicillins Allergy (Mild, Verified 11/25/17 23:02) Hives/Rash simvastatin [From Zocor] Allergy (Mild, Verified 11/25/17 23:02) generalized pain metformin Allergy (Verified 11/25/17 23:02) Unknown Home Medications: Glimepiride 4 mg PO BID 11/15/14 Loperamide [Imodium*] 2 mg PO PRN PRN 11/15/14 Trazodone [Desyrel*] 50 mg PO BEDTIME 11/26/17 Aspirin Chewable [Aspirin Chewable*] 81 mg PO DAILY #30 tab.chew 11/28/17 Prasugrel Hydrochloride [Effient*] 10 mg PO DAILY #30 tab 11/28/17 levoFLOXacin [Levaquin*] 500 mg PO DAILY #3 tab 12/04/17 Metoprolol Tartrate [Lopressor*] 25 mg PO BID 30 Days #60 tab 10/24/23 lisinopriL [Prinivil*] 10 mg PO DAILY 60 Days #60 tab 10/24/23 - Past Medical/Surgical History Diabetic: Yes -: NIDDM -: A-FIB -: CANCER- RIGHT BREAST -: HYPERTENSION -: hyperlipidemia -: gerd -: SHANE -: HYSTERECTOMY -: R SIDE MASTECTOMY -: APPENDECTOMY -: R EYE CATARACT SX -: PARTIAL THYROID REMOVAL Psychosocial/ Personal History: Lives at home alone, Son comes daily. Pt had fall in shower 10/26 - Family History Sister -: Heart disease Mother -: Heart disease, Hypertension Notes: unknown heart condition- was in her 80s when she . - Social History Alcohol use: No CD- Drugs: No Caffeine use: Yes Review of Systems is unable to be obtained Physical Examination - Vital Signs Temperature: 97 F Blood Pressure: 128/78 - Physical Exam General: Alert, Unresponsive Respiratory: Clear to auscultation bilaterally, Crackles/rales (Because of the left side) Cardiovascular: No edema, Regular rate/rhythm Gastrointestinal: Normal bowel sounds, Soft and benign Neurological: Other (Patient is aphasic and weakness on the left side) - Studies Laboratory Data (last 24 hrs) 11/22/23 11/22/23 11/22/23 16:07 16:07 16:07 WBC 6.00 Hgb 10.2 L Hct 31.3 L Plt Count 249 PT 21.0 H INR 1.91 APTT 32.3 Sodium 141 Potassium 3.9 BUN 21 H Creatinine 0.62 Glucose 137 H Assessment and Plan - Problems (Diagnosis) (1) STEMI (ST elevation myocardial infarction) Current Visit: Yes Status: Acute Plan: Patient is 83 years of age [facility] she was scheduled to have a cardiac cath done at [facility] then developed a stroke was [facility] she has paralysis on the left side aphasic troponins elevated EKG changes possibly acute most likely she has had a STEMI and to admit anticoagulate there is no evidence of any bleeding right now hemoglobin stable at 10.2 and is elevated at 255 some pulmonary edema will try some Lasix PRANEETH inhibitors renal function is stable and low-dose beta-blockers aspirin Rate is 93 beats/min. Rhythm is regular. QRS [place] is Normal. Q waves are Present in bo1 leads I, V1, V2, V3. T waves are Inverted in leads III, aVF, V5, V6. Clinical impression: NSR w/ Non-specific ST/T Changes. Patient has atrial fibrillation history in the past was placed on Eliquis and Plavix at [facility] as per emergency room doctor documentation his INR is elevated Labs chest x-rays reviewed Qualifiers: Involved coronary artery: unspecified coronary artery Qualified Code(s): I21.3 - ST elevation (STEMI) myocardial infarction of unspecified site - Advance Directives Does patient have a Living Will: No Does patient have a Durable POA for Healthcare: No
[2023-11-22] MEDS ORDERED: ENOXAPARIN 100 MG/ML SYR SQ SCH (21:00)
[2023-11-22] MEDS: FUROSEMIDE 20 MG/ 2ML VIAL IV SCH (22:50)
[2023-11-22] MEDS: Enoxaparin 120 MG/0.8 ML SYR SQ SCH (22:54)
[2023-11-22] MEDS: METOPROLOL TAR 25 MG TAB PO SCH (22:54)
[2023-11-22] MEDS: ASPIRIN 325 MG TAB ONE (22:58)
[2023-11-22] MEDS: ASPIRIN 325 MG TAB PO ONE (23:00)
[2023-11-23 03:58] LABS: Absolute Eosinophils 0.1 K/uL (0-0.5); Absolute Lymphocytes (CBC) 1.4 K/uL (0.7-4.9); Absolute Monocytes 0.4 K/uL (0.1-1.3); Absolute Neutrophil 4.1 K/uL (1.8-8.0); Basophils % 0.3 % (0-1.3); Eosinophils % 1.3 % (0-4.4); Hematocrit 29.3 % (36.0-45.0); Hemoglobin 9.9 g/dL (12.0-15.0); Lymphocytes % 23.4 % (15.3-44.8); MCH 31.7 pg (27.0-35.0); MCHC 33.7 g/dL (32.0-36.0); MPV 7.7 fL (7.6-11.3); Monocytes % 6.7 % (3.3-12.3); Neutrophils % 68.3 % (41.7-73.7); Nucleated Red Blood Cells % 0.2 % (0-0); Platelets 273 thou/uL (152-406); RBC Red Blood Cell Count 3.11 M/uL (3.86-4.86); Red Cell Distribution Width 15.1 % (12.1-15.2)
--- NOTE | 2023-11-23 08:34 | RAD REPORT ---
EXAM DESCRIPTION: CT - Chest For Pe Angio - 11/23/2023 8:21 am CLINICAL HISTORY: elevated trop, absent lung sounds, sob COMPARISON: Chest Single View dated 11/22/2023 TECHNIQUE: Dynamically enhanced axial 3 mm thick images of the chest were obtained during administra tion of <100> mL Isovue 370 IV contrast. Coronal and oblique reconstruction images were generated and reviewed. Exam utilizes a protocol for optimal evaluation of pulmonary arterial tree. Maximum intensity projections 3D imaging was utilized All CT scans are performed using dose optimization technique as appropriate and may include automated exposure control or mA/KV adjustment according to patient size. FINDINGS: Chest Wall: The left lobe of the thyroid is enlarged. Lungs: Secretions present in the left mainstem bronchus as well as the bronchi to the lingula and lef t lower lobe which are occluded. Atelectasis as result of the pleural effusions. There is also consol idation in the superior segment left lower lobe and medial left upper lobe. Some scattered nodular op acities are present in the right lung. Pleura: Moderate bilateral pleural effusions. Mediastinum/asaf: Superior mediastinal mass measuring 6 x 4.8 cm. This deviates the trachea significa ntly to the right as well as the esophagus. Pulmonary arteries/Aorta: No filling defect identified. No aortic aneurysm. Heart: No significant pericardial effusion. Cardiomegaly. Coronary artery calcifications. Upper abdomen: No acute abnormality. Bones: Pathologic compression fracture L1. IMPRESSION: Negative for pulmonary embolism. Moderate bilateral pleural effusions likely secondary to pulmonary edema. Probable secretions occludi ng the left mainstem bronchus and bronchi to the lingula and left lower lobe. Bilateral nodular and c onsolidative airspace opacities could reflect coexisting pneumonia or pneumonitis. Superior mediastinal mass and suspected L1 pathologic compression fracture that is only partially lance ged. Findings likely reflecting metastatic disease but of uncertain primary. Note that the superior m ediastinal mass displaces the trachea and esophagus.
[2023-11-23] MEDS: lisinopriL 10 MG TAB PO SCH (09:43)
--- NOTE | 2023-11-23 10:49 | P.CNS ---
Date of Consult: 11/23/23 Chief Complaint: Possible myocardial infarction History of Present Illness: Patient with PMH of multivessel CAD, stroke, non verbal, heart failure, presented with worsening SOB and bilateral lower extremities swelling, patient is disabled from recent stroke, repose to question by head shaking, denies chest pain, no palpitations. Allergies amoxicillin Allergy (Mild, Verified 11/25/17 23:02) Hives/Rash colesevelam HCl [From WelChol] Allergy (Mild, Verified 11/25/17 23:02) diarrhea niacin Allergy (Mild, Verified 11/25/17 23:02) Nausea/Vomiting Penicillins Allergy (Mild, Verified 11/25/17 23:02) Hives/Rash simvastatin [From Zocor] Allergy (Mild, Verified 11/25/17 23:02) generalized pain metformin Allergy (Verified 11/25/17 23:02) Unknown Home Medications: Acetaminophen [Acetaminophen ER] 650 mg PO Q4H PRN 11/23/23 Apixaban [Eliquis] 5 mg PO BID 11/23/23 Atorvastatin Calcium [Lipitor] 80 mg PO BEDTIME 11/23/23 Buspirone HCl [Buspar] 10 mg PO Q6H PRN 11/23/23 Clopidogrel Bisulfate [Clopidogrel] 75 mg PO DAILY 11/23/23 Ezetimibe [Zetia*] 10 mg PO BEDTIME 11/23/23 Famotidine 20 mg PO DAILY 11/23/23 Furosemide 20 mg PO DAILY 11/23/23 Insulin Glargine,Hum.rec.anlog [Lantus] 8 units SQ DAILY 11/23/23 Insulin Lispro See Protocol SQ ACHS 11/23/23 Ipratropium/Albuterol Sulfate [Iprat-Albut 0.5-3(2.5) mg/3 ml] 1 inh IH Q4H PRN 11/23/23 Megestrol Acetate 20 ml PO DAILY 11/23/23 Midodrine HCl 2.5 mg PO TID 11/23/23 Sertraline HCl 50 mg PO BEDTIME 11/23/23 Tamsulosin HCl [Flomax] 0.4 mg PO DAILY 11/23/23 - Past Medical/Surgical History Diabetic: Yes -: NIDDM -: A-FIB -: CANCER- RIGHT BREAST -: HYPERTENSION -: hyperlipidemia -: gerd -: SHANE -: HYSTERECTOMY -: R SIDE MASTECTOMY -: APPENDECTOMY -: R EYE CATARACT SX -: PARTIAL THYROID REMOVAL Psychosocial/ Personal History: Lives at home alone, Son comes daily. Pt had fall in shower 10/26 - Family History Sister Medical History: Heart disease Mother Medical History: Heart disease, Hypertension Notes: unknown heart condition- was in her 80s when she . - Social History Smoking Status: Unknown if ever smoked Alcohol use: No CD- Drugs: No Caffeine use: Yes Place of Residence: [facility] Review of Systems 10-point ROS is otherwise unremarkable Physical Examination Temp Pulse Resp BP Pulse Ox 97.0 F 77 18 123/65 95 11/23/23 08:00 11/23/23 09:43 11/23/23 08:00 11/23/23 09:43 11/23/23 08:45 General: Alert, Severe distress HEENT: Atraumatic, PERRLA, Mucous membr. moist/pink, EOMI, Sclerae nonicteric Neck: Supple, 2+ carotid pulse no bruit, No LAD, Without JVD or thyroid abnormality Respiratory: Diminished, Dull, Crackles/rales Cardiovascular: Regular rate/rhythm, Normal S1 S2, Edema Gastrointestinal: Normal bowel sounds, No tenderness Musculoskeletal: No tenderness Integumentary: No rashes Neurological: Normal gait, Normal speech, Normal tone, Normal affect Lymphatics: No axilla or inguinal lymphadenopathy Laboratory Data (last 24 hrs) 11/22/23 11/22/23 11/22/23 16:07 16:07 16:07 WBC 6.00 Hgb 10.2 L Hct 31.3 L Plt Count 249 PT 21.0 H INR 1.91 APTT 32.3 Sodium 141 Potassium 3.9 BUN 21 H Creatinine 0.62 Glucose 137 H - Problems (1) NSTEMI (non-ST elevated myocardial infarction) Current Visit: Yes Status: Acute Plan: Patient known to have complex multivessel CAD, got mild troponin leak, most likely secondary to acute respiratory failure. Patient got multiple co morbidites and any kind of intervention will be high risk for her, espeically with her chest mass, and stroke and respiratory failure. continue medical treatment with ASA, lovenox and lopressor (2) Afib Onset Date: 11/16/14 Current Visit: No Status: Chronic Plan: continue lopressor. continue lovenox. Qualifiers: Atrial fibrillation type: chronic (3) HTN (hypertension) Onset Date: 11/26/17 Current Visit: No Status: Chronic Plan: continue lisinopril 10 mg daily lopressor 25 mg po BID Qualifiers: Hypertension type: essential hypertension
--- NOTE | 2023-11-23 11:39 | P.PN ---
Subjective Date of Service: 11/23/23 Chief Complaint: Possible myocardial infarction Pt is resting comfortably in bed. She is confused. CT chest shows bilateral moderate pleural effusion due to pulm edema and superior mediastinal mass 6 x 4.8 cm. Pt is currently using HFNC 20 L with 30%. No other complaints. Review of Systems is unable to be obtained Physical Examination - Vital Signs Temperature: 97.0 F Blood Pressure: 123/65 Pulse: 77 Respirations: 18 Pulse Ox (%): 95 - Physical Exam General: Alert, In no apparent distress, Oriented x3 HEENT: Atraumatic, Normocephalic, PERRLA Neck: Supple, 2+ carotid pulse no bruit, JVD not distended Respiratory: Diminished Cardiovascular: No edema, Normal pulses, Regular rate/rhythm, Normal S1 S2 Capillary refill: <2 Seconds Gastrointestinal: Normal bowel sounds, Soft and benign, Non-distended Musculoskeletal: No clubbing, No swelling, No contractures Integumentary: No rashes, No breakdown, No significant lesion, No tenderness/swelling Neurological: Normal tone Lymphatics: No axilla or inguinal lymphadenopathy - Studies Laboratory Data (last 24 hrs) 11/22/23 11/22/23 11/22/23 16:07 16:07 16:07 WBC 6.00 Hgb 10.2 L Hct 31.3 L Plt Count 249 PT 21.0 H INR 1.91 APTT 32.3 Sodium 141 Potassium 3.9 BUN 21 H Creatinine 0.62 Glucose 137 H Assessment And Plan - Plan Acute resp failure with hypoxia: Will continue iv rocephin and azithro. f/u blood cx. Bilateral pleural effusion: Will consult IR for thoracentesis. Continue lasix Superior mediastinal mass 6 x 4.8cm: Will need biopsy. Consulted Pulm for further evaluation. Hematuria: Hgb is 9.9. Monitor H/H. Hold Eliquis. GI bleed: Hgb is 9.9. Will monitor H/H. Consulted GI. Elevated troponin: Troponin is 300 <- 234 <- 255. Likely due to acute resp failure. Consulted Cardiology. No further cardiac work up at this time. Continue medical management. DM II: Continue accuchek, SSI and ADA diet. Htn : continue metoprolol and lisinopril. HLD: statin Hx of breast cancer: Will biopsy the mediastinal mass to r/o mets. A. fib: Will continue telemetry and metoprolol. Hold Eliquis due to hematuria DVT ppx: SCD Code: full
[2023-11-24 07:59] LABS: Absolute Eosinophils 0.1 K/uL (0-0.5); Absolute Lymphocytes (CBC) 1.3 K/uL (0.7-4.9); Absolute Monocytes 0.5 K/uL (0.1-1.3); Absolute Neutrophil 4.9 K/uL (1.8-8.0); Basophils % 0.4 % (0-1.3); Eosinophils % 0.8 % (0-4.4); Hematocrit 28.4 % (36.0-45.0); Hemoglobin 9.1 g/dL (12.0-15.0); Lymphocytes % 18.9 % (15.3-44.8); MCH 30.4 pg (27.0-35.0); MCHC 31.9 g/dL (32.0-36.0); MCV 95.3 fL (80-100); MPV 7.6 fL (7.6-11.3); Monocytes % 7.9 % (3.3-12.3); Nucleated Red Blood Cells % 0.3 % (0-0); Platelets 307 thou/uL (152-406); RBC Red Blood Cell Count 2.98 M/uL (3.86-4.86); Red Cell Distribution Width 15.1 % (12.1-15.2)
[2023-11-24 08:14] LABS: Anion Gap 12.8 mEq/L (5.0-15.0); Potassium 3.8 mEq/L (3.5-5.1)
--- NOTE | 2023-11-24 09:26 | P.PN ---
Subjective Date of Service: 11/24/23 Chief Complaint: Possible myocardial infarction Pt is resting comfortably in bed. She is confused. CT chest shows bilateral moderate pleural effusion due to pulm edema and superior mediastinal mass 6 x 4.8 cm. Pt is currently using HFNC 20 L with 24%. No other complaints. Review of Systems limited General: Unremarkable Eyes: Unremarkable Respiratory: SOB with Excertion Cardiovascular: Unremarkable Gastrointestinal: Unremarkable Musculoskeletal: Unremarkable Integumentary: Unremarkable Neurological: Unremarkable Lymphatics: Unremarkable Physical Examination - Vital Signs Temperature: 96.9 F Blood Pressure: 88/53 Pulse: 58 Respirations: 17 Pulse Ox (%): 92 - Physical Exam General: Alert, In no apparent distress, Oriented x2 HEENT: Atraumatic, Normocephalic Neck: Supple, 2+ carotid pulse no bruit, JVD not distended Respiratory: Normal air movement, Diminished (decreased bibasilar breath sounds) Cardiovascular: No edema, Normal pulses, Regular rate/rhythm Capillary refill: <2 Seconds Gastrointestinal: Normal bowel sounds, Soft and benign, Non-distended Musculoskeletal: No clubbing, No swelling Integumentary: No rashes, No breakdown, No significant lesion Neurological: Normal speech, Normal tone Lymphatics: No axilla or inguinal lymphadenopathy Assessment And Plan - Plan Acute resp failure with hypoxia: Will continue HFNC 20L with 24% fio2. Will start iv rocephin and azithro. f/u blood cx. Bilateral pleural effusion: Will consult IR for thoracentesis. Continue lasix Superior mediastinal mass 6 x 4.8cm: Will need biopsy. Consulted Pulm for further evaluation. Hematuria: Hgb is 9.1 <- 9.9. Monitor H/H. Hold Eliquis. GI bleed: Hgb is 9.1 <- 9.9. Will monitor H/H. Consulted GI. Elevated troponin: Troponin is 300 <- 234 <- 255. Likely due to acute resp failure. Consulted Cardiology. No further cardiac work up at this time. Continue medical management. DM II: Continue accuchek, SSI and ADA diet. Htn : continue metoprolol and lisinopril. HLD: statin Hx of breast cancer: Will biopsy the mediastinal mass to r/o mets. A. fib: Will continue telemetry and metoprolol. Hold Eliquis due to hematuria DVT ppx: SCD Code: full
[2023-11-24] MEDS: CEFTRIAXONE 1,000 MG in NA CHLORIDE 0.9% 50 ML IVPB SCH (09:56)
[2023-11-24] MEDS: AZITHROMYCIN IV 500 MG in NA CHLORIDE 0.9% 250 ML IVPB SCH (09:56)
--- NOTE | 2023-11-24 10:49 | P.PN ---
Subjective Date of Service: 11/24/23 Chief Complaint: Possible myocardial infarction Subjective: No new changes, Tolerating diet Review of Systems 10-point ROS is otherwise unremarkable Physical Examination - Vital Signs Temperature: 96.9 F Blood Pressure: 105/58 Pulse: 61 Respirations: 17 Pulse Ox (%): 96 - Physical Exam General: Alert, In no apparent distress HEENT: Atraumatic, PERRLA, EOMI Neck: Supple, JVD not distended Respiratory: Diminished, Dull Cardiovascular: Regular rate/rhythm, Normal S1 S2 Gastrointestinal: Normal bowel sounds, No tenderness Musculoskeletal: No tenderness Integumentary: No rashes Neurological: Normal speech, Normal tone, Normal affect Lymphatics: No axilla or inguinal lymphadenopathy - Studies Medications List Reviewed: Yes Assessment And Plan - Current Problems (Diagnosis) (1) NSTEMI (non-ST elevated myocardial infarction) Current Visit: Yes Status: Acute Plan: Patient known to have complex multivessel CAD, got mild troponin leak, most likely secondary to acute respiratory failure. Patient got multiple co-morbidities and any kind of intervention will be high risk for her, especially with her chest mass, and stroke and respiratory failure. continue medical treatment with ASA, lovenox and lopressor Cardiology will Sign off, please call with any questions. (2) Afib Onset Date: 11/16/14 Current Visit: No Status: Chronic Plan: continue lopressor. continue lovenox. Qualifiers: Atrial fibrillation type: chronic (3) HTN (hypertension) Onset Date: 11/26/17 Current Visit: No Status: Chronic Plan: continue lisinopril 10 mg daily lopressor 25 mg po BID Qualifiers: Hypertension type: essential hypertension
--- NOTE | 2023-11-24 16:35 | EKG ---
Test Date: 2023-11-22 Test Time: 15:53:42 Barrel Liner: TILA MEASUREMENT RESULTS: Intervals: Rate: 93 MO: 208 QRSD: 120 QT: 406 QTc: 504 Hines: P: 35 MO: 208 QRS: 140 T: -40 INTERPRETIVE STATEMENTS: Normal sinus rhythm Anterolateral infarct, age undetermined ST & T wave abnormality, consider inferior ischemia Abnormal ECG Compared to ECG 11/22/2023 15:53:11 Possible ischemia now present Fusion complex(es) no longer present Ventricular premature complex(es) no longer present Myocardial infarct finding still present ST (T wave) deviation still present Electronically Signed On 11-24-23 16:30:27 CDT by Burke Ford
--- NOTE | 2023-11-24 16:35 | EKG ---
Test Date: 2023-11-22 Test Time: 15:53:11 Training And Development Professional: TILA MEASUREMENT RESULTS: Intervals: Rate: 84 MS: 194 QRSD: 112 QT: 414 QTc: 489 [place]: P: 45 MS: 194 QRS: 142 T: -67 INTERPRETIVE STATEMENTS: Sinus rhythm with premature ventricular complexes or fusion complexes Septal infarct, age undetermined Lateral infarct, age undetermined Marked ST abnormality, possible inferior subendocardial injury Abnormal ECG Compared to ECG 10/23/2023 06:53:00 Fusion complex(es) now present Ventricular premature complex(es) now present ST (T wave) deviation now present Accelerated junctional rhythm no longer present Left ventricular hypertrophy no longer present Myocardial infarct finding still present Electronically Signed On 11-24-23 16:30:30 CDT by Burke Ford
--- NOTE | 2023-11-24 18:40 | RAD REPORT ---
EXAM DESCRIPTION: [facility]23 6:15 pm CLINICAL HISTORY: pleural effusion COMPARISON: Chest Single View dated 11/22/2023; Chest Single View dated 10/23/2023; Chest Single View dated 11/28/2017; Chest Single View dated 11/25/2017 TECHNIQUE: Portable AP view of the chest. FINDINGS: Persistent interstitial central prominence and perihilar hazy opacities. Suspected small l eft more than right pleural effusions. Left basilar atelectasis or opacification, mildly improved. N o pneumothorax or effusion. The cardiomediastinal contours are unremarkable. IMPRESSION: Persistent changes suggesting pulmonary edema. Mildly improved aeration in the left lung base.
--- NOTE | 2023-11-24 18:57 | RAD REPORT ---
EXAM DESCRIPTION: RAD - Ankle Right 2 View - 11/24/2023 6:15 pm CLINICAL HISTORY: r/o ankle fracture COMPARISON: No comparisons TECHNIQUE: Right ankle, 3 views. FINDINGS: No fracture, dislocation or periosteal reaction. Corticated small ovoid density adjacent t o the tip of the medial malleolus, may relate to chronic ligamentous injury. No joint effusion seen. No joint space narrowing. Large calcaneal spur. Enthesopathy at the Achilles tendon attachment. Vascu lar calcifications. IMPRESSION: No acute osseus abnormality. Chronic findings as above.
[2023-11-25 05:32] LABS: Absolute Eosinophils 0.1 K/uL (0-0.5); Absolute Monocytes 0.6 K/uL (0.1-1.3); Absolute Neutrophil 3.5 K/uL (1.8-8.0); Basophils % 0.6 % (0-1.3); Eosinophils % 1.5 % (0-4.4); Hematocrit 26.5 % (36.0-45.0); Hemoglobin 8.9 g/dL (12.0-15.0); Lymphocytes % 32.4 % (15.3-44.8); MCH 31.5 pg (27.0-35.0); MCHC 33.5 g/dL (32.0-36.0); MCV 94.1 fL (80-100); MPV 7.5 fL (7.6-11.3); Monocytes % 9.3 % (3.3-12.3); Neutrophils % 56.2 % (41.7-73.7); Nucleated Red Blood Cells % 0.5 % (0-0); Platelets 328 thou/uL (152-406); RBC Red Blood Cell Count 2.81 M/uL (3.86-4.86); Red Cell Distribution Width 15.4 % (12.1-15.2)
[2023-11-25 05:39] LABS: Anion Gap 12.6 mEq/L (5.0-15.0); Magnesium 1.6 mg/dL (1.6-2.4); Potassium 3.6 mEq/L (3.5-5.1)
--- NOTE | 2023-11-25 22:53 | P.PN ---
Date of Service: 11/25/23 Subjective Patient appears to be doing well with no new complaints. Clinical symptoms are improving. Plan to go ahead and transfer to medical floor at this time. Physical Examination - Vital Signs reviewed - Physical Exam General: Alert, In no apparent distress, Oriented x2; some confusion Respiratory: Basilar crackles but otherwise clear reath sounds) Cardiovascular: No edema, Normal pulses, Regular rate/rhythm Gastrointestinal: Normal bowel sounds, Soft and benign, Non-distended Musculoskeletal: No clubbing, No swelling Integumentary: No significant abnormalities noted Neurological: Patient with generalized weakness but no significant focal deficits noted Assessment And Plan - (1) NSTEMI (non-ST elevated myocardial infarction) Current Visit: Yes Status: Acute Plan: Appreciate cardiology consultation. Continue with antiplatelet therapy and statin therapy and strict blood pressure control. Also continue with anticoagulation. (2) Afib Onset Date: 11/16/14 Current Visit: No Status: Chronic Plan: Rate control with Lopressor. On Lovenox. Appreciate cardiology recommendation (3) HTN (hypertension) Onset Date: 11/26/17 Current Visit: No Status: Chronic Plan: Monitor hemodynamics closely (4) Acute hypoxic resspiratory failure with bilateral effusions Current Visit: Yes Status: Acute Plan: Monitor respiratory status. Currently doing better. Further workup pending for mediastinal mass. (5) Superior mediastinal mass Current Visit: Yes Status: Acute Plan: Outpatient biopsy. Possible metastasis to the lumbar spine (5) GI bleeding Current Visit: Yes Status: Acute Plan: PPI; monitor H&H (6) Hematuria Current Visit: Yes Status: Acute Plan: No hematuria at this time. Resolved (7) Metabolic syndrome; DM2/HTN/Dyslipidemia Current Visit: Yes Status: Acute Plan: Strict blood pressure and blood sugar control (8) History of CVA Current Visit: Yes Status: Acute Plan: Antiplatelet therapy, statin therapy, and strict blood pressure control.
[2023-11-26 00:37] LABS: Hematocrit 23.9 % (36.0-45.0)
[2023-11-26 06:42] LABS: Anion Gap 15.9 mEq/L (5.0-15.0); Potassium 3.9 mEq/L (3.5-5.1)
[2023-11-26 06:43] LABS: Absolute Basophils 0.1 K/uL (0-0.5); Absolute Eosinophils 0.1 K/uL (0-0.5); Absolute Lymphocytes (CBC) 2.3 K/uL (0.7-4.9); Absolute Monocytes 0.7 K/uL (0.1-1.3); Absolute Neutrophil 4.9 K/uL (1.8-8.0); Basophils % 0.9 % (0-1.3); Hematocrit 22.9 % (36.0-45.0); Hemoglobin 7.5 g/dL (12.0-15.0); Lymphocytes % 28.3 % (15.3-44.8); MCH 30.7 pg (27.0-35.0); MCHC 32.8 g/dL (32.0-36.0); MCV 93.5 fL (80-100); MPV 8.4 fL (7.6-11.3); Monocytes % 8.9 % (3.3-12.3); Neutrophils % 60.9 % (41.7-73.7); Nucleated Red Blood Cells % 0.4 % (0-0); Platelets 319 thou/uL (152-406); RBC Red Blood Cell Count 2.45 M/uL (3.86-4.86); Red Cell Distribution Width 15.2 % (12.1-15.2)
[2023-11-26] MEDS: Magnesium Sulfate 2gm IVPB 2 G/50 ML BAG IV ONE (07:53)
[2023-11-26 09:26] LABS: Anisocytosis 1+; Band Neutrophils 2 % (0-1); Blood Morphology Comment NOTED (NOT SEEN); Differential Total Cells Count 100; Lymphocytes 37 % (15-42); Macrocytosis 1+; Metamyelocytes 1 % (0-0); Monocytes 6 % (0-10); Nucleated Red Blood Cells 2 /100WBC; Platelet Estimate ADEQ; Platelets Clumped FEW; Polychromasia SLIGHT; Segmented Neutrophils 53 % (40-80)
[2023-11-26 14:45] LABS: Absolute Basophils 0.1 K/uL (0-0.5); Absolute Lymphocytes (CBC) 1.7 K/uL (0.7-4.9); Absolute Monocytes 0.6 K/uL (0.1-1.3); Absolute Neutrophil 4.5 K/uL (1.8-8.0); Basophils % 0.8 % (0-1.3); Eosinophils % 0.5 % (0-4.4); Hematocrit 22.3 % (36.0-45.0); Hemoglobin 7.1 g/dL (12.0-15.0); Lymphocytes % 24.4 % (15.3-44.8); MCH 30.5 pg (27.0-35.0); MCHC 31.8 g/dL (32.0-36.0); MCV 96.1 fL (80-100); MPV 7.8 fL (7.6-11.3); Monocytes % 8.1 % (3.3-12.3); Neutrophils % 66.2 % (41.7-73.7); Nucleated RBC Absolute Count 0.1 (0-0); Platelets 356 thou/uL (152-406); RBC Red Blood Cell Count 2.32 M/uL (3.86-4.86); Red Cell Distribution Width 15.8 % (12.1-15.2)
[2023-11-27 04:58] LABS: Absolute Lymphocytes (CBC) 1.9 K/uL (0.7-4.9); Absolute Monocytes 0.7 K/uL (0.1-1.3); Absolute Neutrophil 4.9 K/uL (1.8-8.0); Anion Gap 19.1 mEq/L (5.0-15.0); Basophils % 0.6 % (0-1.3); Eosinophils % 0.2 % (0-4.4); Hematocrit 19.9 % (36.0-45.0); Hemoglobin 6.5 g/dL (12.0-15.0); MCH 31.3 pg (27.0-35.0); MCHC 32.7 g/dL (32.0-36.0); MCV 95.7 fL (80-100); MPV 8.4 fL (7.6-11.3); Magnesium 2.1 mg/dL (1.6-2.4); Monocytes % 9.4 % (3.3-12.3); Neutrophils % 64.8 % (41.7-73.7); Nucleated RBC Absolute Count 0.1 (0-0); Nucleated Red Blood Cells % 1.5 % (0-0); Platelets 378 thou/uL (152-406); Potassium 4.1 mEq/L (3.5-5.1); RBC Red Blood Cell Count 2.08 M/uL (3.86-4.86); Red Cell Distribution Width 15.7 % (12.1-15.2)
[2023-11-27 05:49] LABS: Band Neutrophils 2 % (0-1); Differential Total Cells Count 100; Lymphocytes 31 % (15-42); Monocytes 4 % (0-10); Nucleated Red Blood Cells 2 /100WBC; Segmented Neutrophils 63 % (40-80)
[2023-11-27 05:50] LABS: Platelet Estimate ADEQ
[2023-11-27 05:51] LABS: Anisocytosis 2+; Blood Morphology Comment NOTED (NOT SEEN); Hypochromasia 2+; Polychromasia 2+
[2023-11-27] MEDS ORDERED: NA CHLORIDE 0.9% 250 ML IV SCH (06:00)
[2023-11-27] MEDS: NA CHLORIDE 0.9% 250 ML IV ONE (09:45)
[2023-11-27 09:56] LABS: Absolute Basophils 0.1 K/uL (0-0.5); Absolute Lymphocytes (CBC) 1.2 K/uL (0.7-4.9); Absolute Monocytes 0.8 K/uL (0.1-1.3); Absolute Neutrophil 7.3 K/uL (1.8-8.0); Basophils % 0.7 % (0-1.3); Hematocrit 21.6 % (36.0-45.0); Hemoglobin 6.9 g/dL (12.0-15.0); Lymphocytes % 12.5 % (15.3-44.8); MCH 30.9 pg (27.0-35.0); MCHC 31.8 g/dL (32.0-36.0); MCV 97.2 fL (80-100); MPV 8.2 fL (7.6-11.3); Monocytes % 8.6 % (3.3-12.3); Neutrophils % 78.2 % (41.7-73.7); Nucleated RBC Absolute Count 0.1 (0-0); Nucleated Red Blood Cells % 1.6 % (0-0); Platelets 397 thou/uL (152-406); RBC Red Blood Cell Count 2.23 M/uL (3.86-4.86); Red Cell Distribution Width 15.6 % (12.1-15.2)
[2023-11-27] MEDS: SODIUM BICARB 50 MEQ/50ML VIAL IV ONE ×2 (10:10→11:00)
[2023-11-27 10:12] LABS: Anion Gap 25.8 mEq/L (5.0-15.0); Potassium 4.8 mEq/L (3.5-5.1)
[2023-11-27] MEDS: DOPAMINE/D5W 400 MG/250 ML BAG IV SCH (10:15)
[2023-11-27 10:21] LABS: Arterial Blood Carboxyhemoglob 1.4 % (0-1.5); Blood Gas Oxyhemoglobin 95.3 % (94-97); Blood Gas THB 8.2 g/dl (12-18); Blood O2 Saturation 97.3 % (92-98.5)
[2023-11-27 10:27] LABS: Albumin/Globulin Ratio 0.5 (1.1-1.8); Bilirubin Direct 0.3 mg/dL (0-0.2); Bilirubin Indirect, Calculated 0.3 mg/dL (0.2-0.8); Bilirubin Total 0.6 mg/dL (0.2-1.0); Globulin 3.7 g/dL (2.3-3.5); Protein, Total 5.7 g/dL (6.4-8.2)
[2023-11-27] MEDS: NA CHLORIDE 0.9% 1,000 ML ONE ×2 (10:34→11:38)
[2023-11-27] MEDS: NOREPINEPHRINE BITARTRATE/D5W 4 MG/250 ML KIT IV ONE (10:38)
[2023-11-27] MEDS: SODIUM BICARB 50 MEQ/50ML VIAL ONE (10:39)
--- NOTE | 2023-11-27 10:42 | RAD REPORT ---
EXAM DESCRIPTION: CT - Head Brain Wo Cont - 11/27/2023 9:59 am CLINICAL HISTORY: AMS COMPARISON: Ct Stroke Brain Wo Cont dated 11/22/2023 TECHNIQUE: Noncontrast head CT images were obtained without IV contrast. Multiplanar reformats were generated and reviewed. All CT scans are performed using dose optimization technique as appropriate and may include automated exposure control or mA/KV adjustment according to patient size. FINDINGS: No intracranial hemorrhage, mass, or edema. Midline structures are unremarkable. Normal ventricular caliber for age. Stable hypoattenuation involving the left aspect of the body and splenium of the corpus callosum as w ell as the adjacent left cingulate gyrus. Small focus of encephalomalacia along the right genu of the corpus callosum is stable. Dodd-white matter differentiation elsewhere is preserved, without evidenc e of acute infarct. No abnormal extra-axial fluid collections. Mastoid air cells and visualized portions of the paranasal sinuses are clear. No acute bony findings. IMPRESSION: No evidence of an acute intracranial process. Stable sequelae of ischemia involving the corpus callosum left cingulate gyrus as above.
[2023-11-27] MEDS: ALBUMIN HUMAN 25% 100 ML IV ONE ×2 (11:46→17:43)
[2023-11-27] MEDS: propofoL 200 MG/20 ML VIAL IV ONE (12:09)
[2023-11-27] MEDS ORDERED: ETOMIDATE 20 MG/10 ML VIAL IV ONE ×2 (12:15→12:45)
[2023-11-27] MEDS: SUCCINYLCHOLINE 20 MG/ML (10 ML) IV ONE (12:16)
--- NOTE | 2023-11-27 12:17 | P.OP ---
Preoperative diagnosis: Need for IV Access Postoperative diagnosis: Need for IV Access Primary procedure: Placement of LEFT Femoral Triple Lumen Central Line Secondary procedure: Ultrasound utilized Anesthesia: 1% lidocaine Estimated blood loss: <5cc Specimen: none Findings: non-pulsatile blood Complications: None Implants: triple lumen central line Transferred to: ICU Condition: Critical
[2023-11-27 12:18] LABS: Anion Gap 27.5 mEq/L (5.0-15.0); Potassium 4.5 mEq/L (3.5-5.1)
--- NOTE | 2023-11-27 12:44 | OP ---
Date of Procedure: 11/27/2023 Surgeon: Oliverio Love MD, Preoperative Diagnosis: Need for IV access for pressor support/critical illness. Postoperative Diagnosis: Need for IV access for pressor support/critical illness. Procedure Performed: Placement of left femoral triple-lumen central venous catheter under ultrasound guidance utilizing micro introducer set. Anesthesia: 1% lidocaine. Estimated Blood Loss: 5 cc. Specimens: None. Findings: Nonpulsatile blood return and femoral vein visualized using ultrasound guidance. Complications: None. Implants: Triple-lumen central venous catheter placed. Disposition: The patient remained in the ICU in critical condition throughout the procedure. Procedure In Detail: Under emergent conditions, as the patient was unable to consent, the patient re quired pressor support and as such, a 2-doctor consent was achieved at this point, and I prepped and draped the patient in the usual sterile fashion after adequate anesthesia was achieved, 1% lidocaine in the left femoral region. Using ultrasound guidance, I cannulated the left femoral vein on the fir st attempt using ultrasound guidance. At this point, a micro wire was advanced. A small kalani incisi on was made overlying the site and the micro wire was left in place at this point and the needle delicia harlan. I placed the micro introducer sheath at this point. After the micro introducer sheath was left in place, I removed the micro wire and the inner cannula portion was removed. Dark red, non pulsati le blood was returned throughout the procedure. At this point, I advanced a standard wire and then p erformed sequential dilatation using Seldinger technique, ultimately placed in the catheter into the left femoral vein without incident or complication. The wire was called out for the second time and the all 3 ports tyler back dark red nonpulsatile blood without issue. I then flushed all them until c ompletely clear and capped them. The catheter was then secured to the skin using a 3-0 silk suture a nd a sterile dressing placed over top. The patient tolerated the procedure well without incident or complication, remained in the ICU in critical condition throughout the procedure. All counts were co rrect at the end of the case. TK/MODL Voice ID: [id number] Report ID: [id number]
[2023-11-27] MEDS ORDERED: SUCCINYLCHOLINE 20 MG/ML (10 ML) IV ONE (12:45)
[2023-11-27 12:54] LABS: Blood Gas Oxyhemoglobin 55.5 % (94-97); Blood O2 Saturation 57.2 % (92-98.5)
[2023-11-27 12:55] LABS: Arterial Blood Carboxyhemoglob 1.2 % (0-1.5); Blood Gas THB 6.3 g/dl (12-18)
[2023-11-27] MEDS ORDERED: FENTANYL CITR 100 MCG/2 ML IV SCH (13:00)
[2023-11-27] MEDS ORDERED: LORAZEPAM IV SCH (13:00)
[2023-11-27] MEDS ORDERED: D5W IV SCH ×2 (13:00→17:00)
[2023-11-27] MEDS ORDERED: FENTANYL CITR 100 MCG/2 ML IV PRN (13:01)
[2023-11-27] MEDS ORDERED: MIDAZOLAM HCL 2 MG/2 ML INJ IV PRN (13:01)
[2023-11-27] MEDS ORDERED: HALOPERIDOL LACT 5 MG/ML INJ IV PRN (13:01)
--- NOTE | 2023-11-27 13:11 | RAD REPORT ---
EXAM DESCRIPTION: [facility] Single View11/27/2023 12:57 pm CLINICAL HISTORY: Device placement endotracheal tube placement IMPRESSION: An endotracheal tube has been inserted with its tip 2.3 centimeters above the level of t he aortic arch
[2023-11-27] MEDS: FENTANYL CITR 100 MCG/2 ML IV SCH (13:12)
--- NOTE | 2023-11-27 13:12 | RAD REPORT ---
EXAM DESCRIPTION: RAD - Abdomen 1 View (KUB) - 11/27/2023 12:57 pm CLINICAL HISTORY: Device placement nasogastric tube placement FINDINGS: The tip of a nasogastric tube lies near the junction of the gastric fundus and body withi n the fundus
[2023-11-27] MEDS: DEXMEDETOMIDINE HCL 200 MCG in NA CHLORIDE 0.9% 98 ML IV SCH (13:26)
[2023-11-27] MEDS: NOREPINEPHRINE 4 MG in D5W 250 ML IV SCH (13:26)
[2023-11-27] MEDS: D5W 1,000 ML with NA BICARB 8.4% 150 MEQ IV SCH (14:03)
[2023-11-27] MEDS: DIGOXIN 0.25 MG/ML AMP IV ONE (14:38)
[2023-11-27] MEDS: FENTANYL CITR 100 MCG/2 ML IV PRN (15:30)
[2023-11-27] MEDS: NOREPINEPHRINE 8 MG in D5W 250 ML IV SCH (15:31)
[2023-11-27] MEDS: DEXMEDETOMIDINE HCL 1,000 MCG in NA CHLORIDE 0.9% 490 ML IV SCH (15:31)
[2023-11-27] MEDS ORDERED: NOREPINEPHRINE IV SCH (17:00)
[2023-11-27 17:21] LABS: Hematocrit 29.8 % (36.0-45.0); Hemoglobin 9.5 g/dL (12.0-15.0)
--- NOTE | 2023-11-27 17:50 | P.PN ---
Date of Service: 11/26/23 Subjective Notified by nursing staff that patient has some nick colored stools. Will go ahead and consult gastroenterology. PPI started. Otherwise, patient's cardiac status is stable. Patient denies any significant complaints at this time. She denies any abdominal pain. Await GI recommendations and appreciate cardiology consultation. Physical Examination - Vital Signs reviewed - Physical Exam General: Alert, In no apparent distress, Oriented x2; some confusion Respiratory: Basilar crackles but otherwise clear breath sounds Cardiovascular: No edema, Normal pulses, Regular rate/rhythm Gastrointestinal: Normal bowel sounds, Soft and benign, Non-distended Musculoskeletal: No clubbing, No swelling Integumentary: No significant abnormalities noted Neurological: Patient with generalized weakness but no significant focal deficits noted Assessment And Plan - (1) NSTEMI (non-ST elevated myocardial infarction) Current Visit: Yes Status: Acute Plan: Continue with cardiac meds at this time. Resume antiplatelet and statin therapy. Plan to hold anticoagulation if continues to have nick colored stools. Monitor hemodynamics closely. (2) Afib Onset Date: 11/16/14 Current Visit: No Status: Chronic Plan: Continue with medication for rate control. Patient currently on Lopressor. Monitor hemodynamics and hold as needed. May need to hold anticoagulation because of lower GI bleeding. (3) HTN (hypertension) Onset Date: 11/26/17 Current Visit: No Status: Chronic Plan: Monitor hemodynamics closely; BP stable (4) Acute hypoxic respiratory failure with bilateral effusions Current Visit: Yes Status: Acute Plan: Respiratory status is stable. Currently doing better. Further workup pending for mediastinal mass. (5) Superior mediastinal mass Current Visit: Yes Status: Acute Plan: Outpatient biopsy. Possible metastasis to the lumbar spine. May need comfort measures (5) GI bleeding Current Visit: Yes Status: Acute Plan: PPI; monitor H&H; GI consultation (6) Hematuria Current Visit: Yes Status: Acute Plan: No hematuria at this time. Resolved (7) Metabolic syndrome; DM2/HTN/Dyslipidemia Current Visit: Yes Status: Acute Plan: Strict blood pressure and blood sugar control (8) History of CVA Current Visit: Yes Status: Acute Plan: Antiplatelet therapy, statin therapy, and strict blood pressure control.
--- NOTE | 2023-11-27 17:55 | P.PN ---
Date of Service: 11/27/23 Subjective Last night nurses notified director corporate communications regarding H&H decreasing. Patient had 2 units of packed red blood cells ordered. Unable to get a hold of family for consent. Nursing staff called me regarding low blood pressures so went ahead and got blood transfused emergently. Patient moved to ICU and patient declined. Patient not improving with improvement of blood pressure and neurologic status was still not getting any better so I went ahead and proceeded with intubating patient with the assistance of anesthesia. Patient given 2 units of packed red blood cells. Patient hemodynamics are improving. Weaning off of Levophed at this time. Lactic acid is still elevated greater than 14.0. Continue with bicarb drip. Pulmonary was consulted for vent management. Patient with diminished urine output most likely related to ATN from hypoperfusion. Echocardiogram performed with an ejection fraction of 22%. Patient's prognosis is poor. I did speak to the son Carlos earlier this morning and he wanted to proceed with everything. I did advise him regarding patient's lung mass with metastasis. Physical Examination - Vital Signs reviewed - Physical Exam General: Intubated and sedated Respiratory: Basilar crackles but otherwise clear breath sounds Cardiovascular: Irregularly irregular rate and rhythm Gastrointestinal: Epigastric tenderness Musculoskeletal: No clubbing, No swelling Integumentary: No significant abnormalities noted Neurological: Sedated and intubated Assessment And Plan - (1) Acute hypoxic respiratory failure with hypovolemic shock Current Visit: Yes Status: Acute Plan: Continue with vent management. Will continue with Precedex for sedation along with fentanyl IV push for pain control. Monitor oxygenation and will slowly wean off ventilator over the next 48 hours. Pulmonary consulted. Continue with IV hydration and blood transfusion. Hopefully once patient's volume status improves we will be able to improved clinical status. However, patient with significant cardiomyopathy with ejection fraction of 22% so we will need to monitor patient's volume status closely. Patient remains on Levophed support. Slowly weaning off at this time. (2) NSTEMI (non-ST elevated myocardial infarction)/atrial fibrillation/ischemic cardiomyopathy-EF 22% Onset Date: 11/16/14 Current Visit: No Status: Chronic Plan: Continue with medication for rate control. Patient currently on Lopressor. Monitor hemodynamics and hold as needed. May need to hold anticoagulation because of lower GI bleeding. (3) Anion gap metabolic acidosis secondary to severe lactic acidosis Onset Date: 11/26/17 Current Visit: No Status: Chronic Plan: Patient started on bicarb drip. Type a lactic acidosis from hypoperfusion. Continue with hydration and monitoring hemodynamics. (4) Gastrointestinal bleeding Current Visit: Yes Status: Acute Plan: Started on PPI drip. Gastroenterology consultation appreciated. Possible EGD in the morning. Awaiting for hemodynamic status stabilized prior to endoscopy. 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 Possible metastasis to the lumbar spine. May need to consider hospice care. At her age and her performance status prognosis is poor and patient unlikely to benefit from chemotherapy. (5) GI bleeding Current Visit: Yes Status: Acute Plan: PPI; monitor H&H (6) History of CVA Current Visit: Yes Status: Acute Plan: Antiplatelet therapy, statin therapy, and strict blood pressure control (7) Metabolic syndrome; DM2/HTN/Dyslipidemia Current Visit: Yes Status: Acute Plan: Strict blood pressure and blood sugar control .
[2023-11-27 20:05] LABS: Absolute Lymphocytes (CBC) 0.9 K/uL (0.7-4.9); Absolute Monocytes 0.5 K/uL (0.1-1.3); Absolute Neutrophil 9.3 K/uL (1.8-8.0); Basophils % 0.1 % (0-1.3); Eosinophils % 0.1 % (0-4.4); Hematocrit 26.9 % (36.0-45.0); Lymphocytes % 8.5 % (15.3-44.8); MCH 31.8 pg (27.0-35.0); MCHC 33.4 g/dL (32.0-36.0); MCV 95.3 fL (80-100); MPV 8.2 fL (7.6-11.3); Monocytes % 4.7 % (3.3-12.3); Neutrophils % 86.6 % (41.7-73.7); Platelets 275 thou/uL (152-406); RBC Red Blood Cell Count 2.82 M/uL (3.86-4.86); Red Cell Distribution Width 15.3 % (12.1-15.2)
[2023-11-27 20:08] LABS: Platelet Estimate ADEQ; White Blood Cell Scan OK (OK)
[2023-11-27 20:09] LABS: Blood Morphology Comment NOT SEEN (NOT SEEN)
[2023-11-27 20:16] LABS: Anion Gap 23.4 mEq/L (5.0-15.0); Potassium 4.4 mEq/L (3.5-5.1)
[2023-11-27] MEDS: Mupirocin NASAL 2 APPL/1 GM TUBE NAS SCH (20:36)
--- NOTE | 2023-11-27 23:05 | P.CNS ---
Date of Consult: 11/27/23 Reason for Consult: Respiratory failure hypovolemic shock Chief Complaint: Respiratory failure History of Present Illness: And is 83 years of age admitted from a [facility] long term apparently developed respiratory distress to be intubated multiple medical problems including a non-STEMI atrial fibrillation hypertension currently on a ventilator vasopressors will underlying sepsis Allergies amoxicillin Allergy (Mild, Verified 11/25/17 23:02) Hives/Rash colesevelam HCl [From WelChol] Allergy (Mild, Verified 11/25/17 23:02) diarrhea niacin Allergy (Mild, Verified 11/25/17 23:02) Nausea/Vomiting Penicillins Allergy (Mild, Verified 11/25/17 23:02) Hives/Rash simvastatin [From Zocor] Allergy (Mild, Verified 11/25/17 23:02) generalized pain metformin Allergy (Verified 11/25/17 23:02) Unknown Home Medications: Acetaminophen [Acetaminophen ER] 650 mg PO Q4H PRN 11/23/23 Apixaban [Eliquis] 5 mg PO BID 11/23/23 Atorvastatin Calcium [Lipitor] 80 mg PO BEDTIME 11/23/23 Buspirone HCl [Buspar] 10 mg PO Q6H PRN 11/23/23 Clopidogrel Bisulfate [Clopidogrel] 75 mg PO DAILY 11/23/23 Ezetimibe [Zetia*] 10 mg PO BEDTIME 11/23/23 Famotidine 20 mg PO DAILY 11/23/23 Furosemide 20 mg PO DAILY 11/23/23 Insulin Glargine,Hum.rec.anlog [Lantus] 8 units SQ DAILY 11/23/23 Insulin Lispro See Protocol SQ ACHS 11/23/23 Ipratropium/Albuterol Sulfate [Iprat-Albut 0.5-3(2.5) mg/3 ml] 1 inh IH Q4H PRN 11/23/23 Megestrol Acetate 20 ml PO DAILY 11/23/23 Midodrine HCl 2.5 mg PO TID 11/23/23 Sertraline HCl 50 mg PO BEDTIME 11/23/23 Tamsulosin HCl [Flomax] 0.4 mg PO DAILY 11/23/23 - Past Medical/Surgical History Diabetic: Yes -: NIDDM -: A-FIB -: CANCER- RIGHT BREAST -: HYPERTENSION -: hyperlipidemia -: gerd -: SHANE -: HYSTERECTOMY -: R SIDE MASTECTOMY -: APPENDECTOMY -: R EYE CATARACT SX -: PARTIAL THYROID REMOVAL Psychosocial/ Personal History: Lives at home alone, Son comes daily. Pt had fall in shower 10/26 - Family History Sister Medical History: Heart disease Mother Medical History: Heart disease, Hypertension Notes: unknown heart condition- was in her 80s when she . - Social History Smoking Status: Unknown if ever smoked Alcohol use: No CD- Drugs: No Caffeine use: Yes Place of Residence: [facility] Review of Systems is unable to be obtained Physical Examination Temp Pulse Resp BP Pulse Ox 96.3 F L 51 14 102/57 L 100 11/27/23 19:45 11/27/23 22:45 11/27/23 22:45 11/27/23 22:45 11/27/23 22:45 General: Unresponsive Neck: Supple Respiratory: Clear to auscultation bilaterally Cardiovascular: No edema, Regular rate/rhythm, Normal S1 S2 Gastrointestinal: Hypoactive - Problems (1) Respiratory failure Current Visit: Yes Status: Acute Plan: Patient is 83 years of age admitted with a non-STEMI respiratory failure only on a ventilator vasopressors renal function has worsened lactic acid is elevated patient has metabolic acidosis had a history of stroke with paralysis on the right side a chest x-ray is clear with the son they do not want her to be resuscitated labs reviewed saturations satisfactory FiO2 of 30% seen by cardiology continue with supportive treatment the nurses informed me that the son had stopped by and discussed with the nursing staff that his mother did not want to be resuscitated or put on a ventilator not able to get hold of the son of her underlying stroke and poor physical condition was instituted patient has a history of GI bleeding settings chest x-rays and lab work all reviewed has a metabolic acidosis and receiving bicarbonate drip also there is a mention of penicillin allergy patient is on Rocephin I will also added vancomycin IV steroids Qualifiers: Chronicity: acute
[2023-11-27] MEDS ORDERED: SODIUM CHLORIDE 0.9% 10ML INJ IV PRN (23:11)
[2023-11-27] MEDS: NA CHLORIDE 0.9% 500 ML ONE (23:40)
[2023-11-27] MEDS: VANCOMYCIN 1 GM/VIAL ONE (23:41)
[2023-11-27] MEDS: HYDROCORTISONE SUC 100 MG INJ IV SCH (23:50)
[2023-11-27] MEDS: PANTOPRAZOLE 40 MG INJ IVP SCH (23:50)
[2023-11-28] MEDS: VANCOMYCIN 2 GM in NA CHLORIDE 0.9% 500 ML IVPB ONE (00:36)
[2023-11-28] MEDS: INSULIN REGULAR (HUMAN) 100 UNIT/ML SQ SCH (00:38)
[2023-11-28 05:09] LABS: Arterial Blood Carboxyhemoglob 1.2 % (0-1.5); Blood Gas Oxyhemoglobin 96.8 % (94-97); Blood Gas THB 9.9 g/dl (12-18); Blood O2 Saturation 99.1 % (92-98.5)
[2023-11-28 05:52] LABS: Absolute Lymphocytes (CBC) 1.2 K/uL (0.7-4.9); Absolute Monocytes 0.4 K/uL (0.1-1.3); Absolute Neutrophil 9.2 K/uL (1.8-8.0); Basophils % 0.2 % (0-1.3); Hematocrit 29.3 % (36.0-45.0); Hemoglobin 9.7 g/dL (12.0-15.0); Lymphocytes % 10.8 % (15.3-44.8); MCH 31.4 pg (27.0-35.0); MCHC 33.2 g/dL (32.0-36.0); MCV 94.6 fL (80-100); MPV 8.8 fL (7.6-11.3); Monocytes % 3.6 % (3.3-12.3); Neutrophils % 85.4 % (41.7-73.7); Nucleated RBC Absolute Count 0.4 (0-0); Nucleated Red Blood Cells % 3.6 % (0-0); Platelets 298 thou/uL (152-406); Red Cell Distribution Width 15.1 % (12.1-15.2)
[2023-11-28 06:14] LABS: Phosphorus 4.9 mg/dL (2.5-4.9)
--- NOTE | 2023-11-28 08:18 | ECHO ---
HEIGHT: 5 ft 0 in WEIGHT: 173 lb 0 oz DATE OF STUDY: 11/27/[address]: Danuta Kendrick MD 2-DIMENSIONAL: YES M.MODE: YES DOPPLER: YES COLOR FLOW: YES TDS: NO PORTABLE: YES DEFINITY: NO BUBBLE STUDY: NO DIAGNOSIS: CONGESTIVE HEART FAILURE CARDIAC HISTORY: CATHERIZATION: SURGERY: PROSTHETIC VALVE: PACEMAKER: MEASUREMENTS (cm) DIASTOLIC (NORMALS) SYSTOLIC (NORMALS) IVSd 1.0 (0.6-1.2) LA Diam 4.0 (1.9-4.0) LVEF 15-20% LVIDd 4.3 (3.5-5.7) LVIDs 3.8 (2.0-3.5) %FS 11% LVPWd 1.2 (0.6-1.2) Ao Diam 2.3 (2.0-3.7) 2 DIMENSIONAL ASSESSMENT: RIGHT ATRIUM: NORMAL LEFT ATRIUM: NORMAL RIGHT VENTRICLE: NORMAL LEFT VENTRICLE: NORMAL TRICUSPID VALVE: MODERATE TRICUSPID REGURGITATION MITRAL VALVE: MODERATE MITRAL REGURGITATION PULMONIC VALVE: NORMAL AORTIC VALVE: CALCIFIED, MILD AORTIC REGURGITATION PERICARDIAL EFFUSION: NONE AORTIC ROOT: NORMAL LEFT VENTRICULAR WALL MOTION: SEVERE GLOBAL HYPOKINESIS. INFERIOR, APICAL WALL AKINESIS DOPPLER/COLOR FLOW: DIASTOLIC DYSFUNCTION. COMMENTS: 1. SEVERELY REDUCED LEFT VENTRICULAR SYSTOLIC FUNCTION. EJECTION FRACTION 15-20%. SEVERE GLOBAL HYPOKINESIS WITH INFERIOR, APICAL WALL AKINESIS. 2. DIASTOLIC DYSFUNCTION. 3. SEVERE PULMONARY HYPERTENSION. RIGHT VENTRICULAR SYSTOLIC PRESSURE >60 mmHg. 4. ELEVATED RIGHT ATRIAL FILLING PRESSURE >20 mmHg. 5. MODERATE MITRAL AND TRICUSPID REGURGITATION. TECHNOLOGIST: ASHLI CHILDRESS
[2023-11-28] MEDS: NOREPINEPHRINE IV SCH (10:46)
[2023-11-28] MEDS: D5W IV SCH ×2 (10:46→18:14)
[2023-11-28] MEDS: LORazepam 2 MG/ML VIAL IV PRN (12:08)
--- NOTE | 2023-11-28 12:46 | P.PN ---
Subjective Date of Service: 11/28/23 Chief Complaint: Respiratory failure Subjective: New changes (Patient is intubated.) Review of Systems is unable to be obtained (intubated) Physical Examination - Vital Signs Temperature: 97.3 F Blood Pressure: 119/63 Pulse: 56 Respirations: 14 Pulse Ox (%): 100 - Studies Medications List Reviewed: Yes Assessment And Plan - Current Problems (Diagnosis) (1) NSTEMI (non-ST elevated myocardial infarction) Current Visit: Yes Status: Acute Plan: Patient known to have complex multivessel CAD, got mild troponin leak, most likely secondary to acute respiratory failure. Patient got multiple co-morbidities and any kind of intervention will be high risk for her, especially with her chest mass, and stroke and respiratory failure. continue medical treatment with ASA, lovenox Patient echo shows low EF, patient is most likely in cardiogenic shock and respiratory failure continue levophed would suggest gentle diuresis with IV Lasix @ 5 mg/hr IF ok with primary team and nephrology. palliative care is the best option for patient as again any intervention is too high risk. (2) Afib Onset Date: 11/16/14 Current Visit: No Status: Chronic Plan: continue lopressor. continue lovenox. Qualifiers: Atrial fibrillation type: chronic (3) HTN (hypertension) Onset Date: 11/26/17 Current Visit: No Status: Chronic Plan: BP is soft, continue to monitor. Qualifiers: Hypertension type: essential hypertension
[2023-11-28] MEDS: EPINEPHRINE 1 MG/ML VIAL ONE (13:22)
[2023-11-28 13:33] LABS: Percent Reticulocyte Count 4.15 % (0.4-2.05); RBC Red Blood Cell Count 3.11 M/uL (3.86-4.86)
[2023-11-28] MEDS: propofoL 200 MG/20 ML VIAL IV ONE ×2 (13:59)
[2023-11-28 14:18] LABS: Thyroid Stimulating Hormone 0.724 uIU/mL (0.358-3.740)
[2023-11-28] MEDS: NA BICARB IV SCH (18:14)
[2023-11-28 18:21] LABS: Absolute Lymphocytes (CBC) 0.7 K/uL (0.7-4.9); Absolute Monocytes 0.3 K/uL (0.1-1.3); Absolute Neutrophil 8.3 K/uL (1.8-8.0); Basophils % 0.1 % (0-1.3); Eosinophils % 0.1 % (0-4.4); Hematocrit 28.7 % (36.0-45.0); Hemoglobin 9.6 g/dL (12.0-15.0); Lymphocytes % 7.2 % (15.3-44.8); MCH 32.3 pg (27.0-35.0); MCHC 33.4 g/dL (32.0-36.0); MCV 96.6 fL (80-100); MPV 8.8 fL (7.6-11.3); Monocytes % 3.1 % (3.3-12.3); Neutrophils % 89.5 % (41.7-73.7); Nucleated RBC Absolute Count 0.4 (0-0); Nucleated Red Blood Cells % 4.6 % (0-0); Platelets 283 thou/uL (152-406); RBC Red Blood Cell Count 2.97 M/uL (3.86-4.86); Red Cell Distribution Width 15.1 % (12.1-15.2)
[2023-11-28 18:57] LABS: Anisocytosis 1+; Band Neutrophils 4 % (0-1); Blood Morphology Comment NOTED (NOT SEEN); Burr Cells 1+; Differential Total Cells Count 100; Hypochromasia 1+; Lymphocytes 7 % (15-42); Monocytes 5 % (0-10); Platelet Estimate ADEQ; Polychromasia 1+; Segmented Neutrophils 84 % (40-80)
--- NOTE | 2023-11-28 19:33 | CON ---
Date of Consultation: 11/27/2023 Reason For Consultation: Hematochezia, hypotension, on IV pressors. History Of Present Illness: The patient came to the hospital due to possible myocardial infarction. The patient had been transferred from [facility] to [facility], found to have hematuri a, bloody stools, and came to the emergency department for further evaluation and care. Of note, xiomara harper has had recent myocardial infarction and, I guess, a STEMI, it appears. She also was noted to h ave a coagulopathy with an INR of 1.91. She has a new mediastinal mass in her chest and it appears t o be new-onset congestive heart failure as well, with a history of atrial fibrillation. Past Medical History: Significant for diabetes, hypertension, hyperlipidemia, congestive heart failu re, atrial fibrillation, coronary artery disease, status post recent SD, gastroesophageal reflux dise ase, right breast cancer, status post right mastectomy, appendectomy, cholecystectomy, hysterectomy, right cataract surgery, and partial thyroid removal as well. Medications: At home included glimepiride, Imodium, Desyrel, aspirin, Effient, Levaquin, metoprolol, Prinivil. Allergies: TO AMOXICILLIN, COLESEVELAM, NIACIN, PENICILLIN, SIMVASTATIN, AND METFORMIN. Social History: No tobacco. No alcohol. Family History: Sister with coronary artery disease. Mother with coronary artery disease and hypert ension. Physical Examination: Vital Signs: She is 5 feet, 173 pounds. BMI of 33.8 kg/sq m. She has a temperature 97.7, most rece nt temp on the chart to 97.1 degrees Fahrenheit, pulse 80, respirations 15, blood pressure 106/55, O2 saturation 96%. HEENT: Normocephalic, atraumatic. Anicteric. Pupils equal, round, and reactive to light. Extraocu lar movements intact. Oropharynx clear. Neck: Supple. No masses. Respirations: Clear to auscultation bilaterally. Cardiac: Regular rate and rhythm. No gallops or rubs. Gastrointestinal: Positive bowel sounds. Soft, nontender, nondistended, obese. No hepatosplenomega ly noted. Extremities: No clubbing or cyanosis. Some lower extremity edema, mild. The patient is sedated and acidotic by chart review. Laboratory Data: The patient has a white count of 10.7, up from 9.3 yesterday; hemoglobin 9, up from earlier today 6.5, was yesterday 7.5, 6.5 this morning. Platelet count of 397, polys of 78%, lympho cytes 13%, monocytes 9%, PT of 21.0, INR of 1.91, PTT of 32.3. Blood gas: PH of 7.19, pCO2 of 33.4, pO2 of 42, bicarb 12, oxygen saturation 57% on 28% FiO2. She has sodium 140, potassium 4.8, chlorid e 107, bicarb 12, BUN of 40, creatinine of 1.62, glucose 106. Lactic acid of 14.9, calcium 8.5, tota l bilirubin 0.6, direct bilirubin 0.3, AST of 105, ALT of 54, alkaline phosphatase 74, total protein 5.7, albumin 2.0. Imaging: CT of chest, thorax revealed no pulmonary embolism. However, moderate bilateral pleural ef fusions and superior mediastinal mass is suspected, L1 pathologic compression fracture and there is a mass in the lungs. Mass in the lungs 6 x 4.8 cm with 6 cm mass in the superior mediastinal area whi ch deviates the trachea to the right as well as the esophagus. Impression: 1.Hematochezia, hypotension, on IV pressors, intubated, sedated, in ICU bed 7. NG tube wash was neg ative. 2.Myocardial infarction, recent with the coronary artery disease, only blood thinners. However, she is bleeding. 3.6-cm mediastinal mass. 4.Coagulopathy. INR of 1.91, PT of 21.0, PTT of 32.3. 5.Acidemia with lactic acid 14.9, bicarb 27.5, K 4.5, creatinine 1.63, pH of 7.19, bicarb of 33 on t he blood gas, and PaO2 of 41.6, oxygen saturation 57% on 28% FiO2, and then patient was intubated. 6.History of diabetes, hypertension, hyperlipidemia, congestive heart failure, atrial fibrillation, myocardial infarction, gastroesophageal reflux disease, right breast cancer with right mastectomy, ap pendectomy, cholecystectomy, hysterectomy, right cataract surgery, and partial thyroid resection. Recommendations: 1.Resuscitation, IV fluids, and IV antibiotics possibly. 2.Serial H and H, and transfuse p.r.n. 3.PPI therapy with IV drip. 4.EGD. 5.Consider colonoscopy. 6.Consider checking bleeding scan, and the patient can get off the ventilator. ALBERT/RADHA Voice ID: [id number] Report ID: [id number]
[2023-11-28] MEDS: ALBUMIN HUMAN 25% 100 ML IV ONE (19:37)
[2023-11-28] MEDS: NA CHLORIDE 0.9% 100 ML ONE (19:43)
[2023-11-28] MEDS: D5W 1,000 ML with NA BICARB 8.4% 50 MEQ IV SCH (20:25)
[2023-11-28] MEDS ORDERED: VANCOMYCIN 1 GM in NA CHLORIDE 0.9% 250 ML IVPB SCH (23:45)
--- NOTE | 2023-11-29 04:54 | OP ---
Date of Procedure: 11/28/2023 Surgeon: Daniel Pearson MD Reason For Procedure: GI bleed with anemia. Medication: Propofol 5 cc was given, then another 5 cc for a total of 10 cc given to the patient. Description Of Procedure: Patient intubated and in supine position. An endoscope was placed in the mouth and proceeded all the way down to the third portion the duodenum, brought back into the stomach and retroflexion views were obtained. Findings included moderate atrophic gastritis in the body and antrum, and mild duodenitis of the bulb. Gastric biopsies were obtained. No active bleeding nor melena nor hematochezia or bright blood found in the stomach or in the small bowel nor anywhere in the upper GI tract. Findings: 1. Include moderate atrophic gastritis of the body and antrum. 2. Duodenitis of the bulb. Recommendations: 1. Await pathology of biopsy results from the stomach. 2. Acid suppression therapy. 3. Bleeding scan as possible. 4. Colonoscopy when able in this ICU patient. ALBERT/RADHA Voice ID: [id number] Report ID: [id number] MTDD
[2023-11-29 05:09] LABS: Arterial Blood Carboxyhemoglob 1.6 % (0-1.5); Blood Gas Oxyhemoglobin 94.5 % (94-97); Blood Gas THB 9.6 g/dl (12-18); Blood O2 Saturation 96.9 % (92-98.5)
[2023-11-29 05:28] LABS: Absolute Lymphocytes (CBC) 0.8 K/uL (0.7-4.9); Absolute Monocytes 0.3 K/uL (0.1-1.3); Absolute Neutrophil 6.8 K/uL (1.8-8.0); Basophils % 0.2 % (0-1.3); Eosinophils % 0.4 % (0-4.4); Hematocrit 27.3 % (36.0-45.0); Hemoglobin 9.3 g/dL (12.0-15.0); Lymphocytes % 9.7 % (15.3-44.8); MCH 31.3 pg (27.0-35.0); MCHC 33.8 g/dL (32.0-36.0); MCV 92.4 fL (80-100); MPV 8.3 fL (7.6-11.3); Monocytes % 3.3 % (3.3-12.3); Neutrophils % 86.4 % (41.7-73.7); Nucleated RBC Absolute Count 0.5 (0-0); Nucleated Red Blood Cells % 5.8 % (0-0); Platelets 247 thou/uL (152-406); RBC Red Blood Cell Count 2.96 M/uL (3.86-4.86); Red Cell Distribution Width 15.1 % (12.1-15.2)
[2023-11-29 06:32] LABS: Magnesium 1.7 mg/dL (1.6-2.4); Phosphorus 3.4 mg/dL (2.5-4.9)
[2023-11-29] MEDS: D5 0.9 NS 1,000 ML IV SCH (07:49)
[2023-11-29] MEDS: CALCIUM GLUCONATE 1 GM IVPB 1 GM/50 ML BAG IV ONE (07:49)
[2023-11-29] MEDS: KCL 20 MEQ/100 mL IVPB 20 MEQ/100 ML BAG IV SCH ×2 (07:49→19:22)
[2023-11-29 08:58] LABS: Albumin 2.4 g/dL (3.4-5.0); Bilirubin Direct 0.4 mg/dL (0-0.2); Bilirubin Indirect, Calculated 0.4 mg/dL (0.2-0.8); Bilirubin Total 0.8 mg/dL (0.2-1.0); Globulin 2.4 g/dL (2.3-3.5); Protein, Total 4.8 g/dL (6.4-8.2)
[2023-11-29 09:42] LABS: Band Neutrophils 1 % (0-1); Differential Total Cells Count 100; Lymphocytes 11 % (15-42); Monocytes 1 % (0-10); Nucleated Red Blood Cells 16 /100WBC; Platelet Estimate ADEQ; Segmented Neutrophils 87 % (40-80)
[2023-11-29 09:43] LABS: Anisocytosis 1+; Blood Morphology Comment NOTED (NOT SEEN)
--- NOTE | 2023-11-29 10:17 | P.PN ---
Subjective Date of Service: 12/01/23 Chief Complaint: Respiratory failure Subjective: Improving (Patient is doing better opening eyes responding minimally did not tolerate SBT) Review of Systems is unable to be obtained Physical Examination - Vital Signs Temperature: 96.8 F Blood Pressure: 120/53 Pulse: 63 Respirations: 11 Pulse Ox (%): 100 - Physical Exam General: Alert Respiratory: Clear to auscultation bilaterally, Diminished Cardiovascular: No edema, Regular rate/rhythm, Normal S1 S2 Gastrointestinal: Normal bowel sounds, Soft and benign - Studies Medications List Reviewed: Yes Assessment And Plan - Current Problems (Diagnosis) (1) Respiratory failure Current Visit: Yes Status: Acute Plan: Patient is currently doing better on low-dose of Levophed patient's liver function and liver function tests have been very abnormal I suspect is from the hypotension renal function is stable patient's hemoglobin is stable CT scan of the chest did show a left upper lobe infiltrate he may have a pneumonia doubt ma ss patient did not tolerate the SBT developed some pauses patient's blood cultures are negative to date will DC hydrocortisone check sputum cultures Qualifiers: Chronicity: acute (2) CHF (congestive heart failure), NYHA class IV Current Visit: Yes Status: Acute Plan: SEVERELY REDUCED LEFT VENTRICULAR SYSTOLIC FUNCTION. EJECTION FRACTION 15-20%. SEVERE GLOBAL HYPOKINESIS WITH INFERIOR, APICAL WALL AKINESIS. 2. DIASTOLIC DYSFUNCTION. 3. SEVERE PULMONARY HYPERTENSION. RIGHT VENTRICULAR SYSTOLIC PRESSURE >60 mmHg. 4. ELEVATED RIGHT ATRIAL FILLING PRESSURE >20 mmHg. 5. MODERATE MITRAL AND TRICUSPID REGURGITATION. Qualifiers: Congestive heart failure type: systolic
--- NOTE | 2023-11-29 14:19 | P.PN ---
Subjective Date of Service: 11/29/23 Chief Complaint: Respiratory failure Subjective: No new changes Review of Systems is unable to be obtained (patient is intubated) Physical Examination - Vital Signs Temperature: 97.3 F Blood Pressure: 109/56 Pulse: 64 Respirations: 15 Pulse Ox (%): 100 - Physical Exam General: In no apparent distress HEENT: Atraumatic, PERRLA, EOMI Neck: Supple, JVD not distended Respiratory: Diminished, Crackles/rales Cardiovascular: Regular rate/rhythm, Normal S1 S2, Edema Gastrointestinal: Normal bowel sounds, No tenderness Musculoskeletal: No tenderness Integumentary: No rashes Neurological: Normal speech, Normal tone, Normal affect Lymphatics: No axilla or inguinal lymphadenopathy - Studies Medications List Reviewed: Yes Assessment And Plan - Current Problems (Diagnosis) (1) NSTEMI (non-ST elevated myocardial infarction) Current Visit: Yes Status: Acute Plan: Patient known to have complex multivessel CAD, got mild troponin leak, most likely secondary to acute respiratory failure. Patient got multiple co-morbidities and any kind of intervention will be high risk for her, especially with her chest mass, and stroke and respiratory failure. continue medical treatment with ASA, lovenox Patient echo shows low EF, patient is most likely in cardiogenic shock and respiratory failure continue levophed would suggest gentle diuresis with IV Lasix @ 5 mg/hr palliative care is the best option for patient as again any intervention is too high risk. (2) Afib Onset Date: 11/16/14 Current Visit: No Status: Chronic Plan: Patient is currently in sinus, continue to monitor. Qualifiers: Atrial fibrillation type: chronic (3) HTN (hypertension) Onset Date: 11/26/17 Current Visit: No Status: Chronic Plan: BP is soft, continue to monitor. Qualifiers: Hypertension type: essential hypertension
[2023-11-29] MEDS ORDERED: DEXTROSE 10%-WATER 500 ML IV SCH (15:00)
[2023-11-29] MEDS ORDERED: DEXMEDETOMIDINE HCL 200 MCG in NA CHLORIDE 0.9% 98 ML IV SCH (15:00)
[2023-11-29] MEDS: FUROSEMIDE 100 MG in NA CHLORIDE 0.9% 90 ML IV SCH (15:17)
[2023-11-29] MEDS: AA 5%/D20W/ELECTROLYTES-TPN 2,000 ML, Lipids 20% 250 ML with MULTIVITAMINS INJ 10 ML IV SCH (16:19)
[2023-11-30 06:06] LABS: Absolute Lymphocytes (CBC) 0.9 K/uL (0.7-4.9); Absolute Monocytes 0.6 K/uL (0.1-1.3); Absolute Neutrophil 6.8 K/uL (1.8-8.0); Basophils % 0.1 % (0-1.3); Hematocrit 27.9 % (36.0-45.0); Hemoglobin 9.2 g/dL (12.0-15.0); Lymphocytes % 11.3 % (15.3-44.8); MCH 31.8 pg (27.0-35.0); MCHC 32.9 g/dL (32.0-36.0); MCV 96.4 fL (80-100); MPV 9.4 fL (7.6-11.3); Monocytes % 6.7 % (3.3-12.3); Neutrophils % 81.9 % (41.7-73.7); Nucleated RBC Absolute Count 0.8 (0-0); Nucleated Red Blood Cells % 9.7 % (0-0); Platelets 222 thou/uL (152-406); RBC Red Blood Cell Count 2.89 M/uL (3.86-4.86); Red Cell Distribution Width 15.1 % (12.1-15.2)
[2023-11-30 06:08] LABS: Anion Gap 8.1 mEq/L (5.0-15.0); Magnesium 1.7 mg/dL (1.6-2.4); Phosphorus 3.4 mg/dL (2.5-4.9); Potassium 3.1 mEq/L (3.5-5.1)
[2023-11-30] MEDS: MAGNESIUM SULFATE 1 gm IVPB 1 GM/100 ML BAG IV ONE (06:36)
[2023-11-30] MEDS: KCL 20 MEQ/100 mL IVPB 20 MEQ/100 ML BAG IV SCH ×2 (08:30→20:21)
[2023-11-30] MEDS: PANTOPRAZOLE 40 MG INJ IVP SCH ×2 (08:30→20:21)
[2023-11-30] MEDS: INSULIN GLARGINE 100 UNIT/ML SQ ONE ×2 (10:33→10:42)
--- NOTE | 2023-11-30 13:27 | P.PN ---
Subjective Date of Service: 11/30/23 Chief Complaint: Hematochezia, hypotension on IV pressors, [place], resp failure, on mech vent Subjective: Improving (Off IV pressors at 545 AM today. Plans on extubating today. EGD 2 days ago -> moderate atrophic gastritis and duodenitis, no blood seen. No bleeding seen for 2 days. Hgb stable 9.2 to 9.7.), Other (Tolerating TFs.) Review of Systems 10-point ROS is otherwise unremarkable General: Weakness, Malaise Physical Examination - Vital Signs Temperature: 97.6 F Blood Pressure: 110/46 Pulse: 80 Respirations: 15 Pulse Ox (%): 100 - Physical Exam General: In no apparent distress, Disheveled HEENT: Atraumatic, Normocephalic, PERRLA, EOMI Neck: Supple Respiratory: Normal air movement (on mech vent / intubated) Cardiovascular: Normal pulses Gastrointestinal: Soft and benign, No tenderness, No rebound, No guarding - Studies Medications List Reviewed: Yes Assessment And Plan - Current Problems (Diagnosis) (1) Hematochezia Current Visit: Yes Status: Acute (2) Melena Current Visit: Yes Status: Acute (3) Hypotension Current Visit: Yes Status: Acute (4) NSTEMI (non-ST elevated myocardial infarction) Current Visit: Yes Status: Acute (5) Respiratory failure Current Visit: Yes Status: Acute Qualifiers: Chronicity: acute - Plan REC: 1) continue TFs 2) continue PPI therapy 3) consider colonoscopy once extubated and stable 4) check serial H&Hs and transfuse prn
[2023-11-30] MEDS: AA 5%/D20W/ELECTROLYTES-TPN 2,000 ML IV SCH (17:28)
[2023-11-30 17:34] LABS: Arterial Blood Carboxyhemoglob 1.6 % (0-1.5); Blood O2 Saturation 98.6 % (92-98.5)
--- NOTE | 2023-11-30 19:22 | P.PN ---
Date of Service: 11/28/23 Subjective Patient was given 2 units of packed red blood cells. Patient's hemoglobin has been stable. Patient required mechanical ventilation. Patient is clinically still very lethargic and hypotensive. Weaning off the vasopressors. Monitor neurologic status at this time. Holding sedation as patient is not that responsive. Will reassess neurologic status. Will continue pain medication and sedation if she starts waking up more. Appreciate consultants assistance in patient's care. Physical Examination - Vital Signs reviewed - Physical Exam General: Intubated Respiratory: Basilar crackles but otherwise clear breath sounds Cardiovascular: Irregularly irregular rate and rhythm Gastrointestinal: Epigastric tenderness Musculoskeletal: No clubbing, No swelling Integumentary: No significant abnormalities noted Neurological: Intubated; lethargic Assessment And Plan - (1) Acute hypoxic respiratory failure with hypovolemic shock Current Visit: Yes Status: Acute Plan: Continue with vent management. Monitor oxygenation and will slowly wean off ventilator over the next 48 hours. Pulmonary consulted. Continue with IV hydration and blood transfusion received. Patient's hemoglobin is stable. However, patient with significant cardiomyopathy with ejection fraction of 22% so we will need to monitor patient's volume status closely. Patient remains on Levophed support-have weaned down 0.02 mics/kilogram/hour. Slowly weaning off at this time. (2) NSTEMI (non-ST elevated myocardial infarction)/atrial fibrillation/ischemic cardiomyopathy-EF 22% Onset Date: 11/16/14 Current Visit: No Status: Chronic Plan: Continue with medication for rate control. Patient currently on Lopressor. Monitor hemodynamics and hold as needed. Holding anticoagulation because of lower GI bleeding. (3) Anion gap metabolic acidosis secondary to severe lactic acidosis Onset Date: 11/26/17 Current Visit: No Status: Chronic Plan: Patient's lactic acidosis has improved. Will go ahead and wean off of the bicarb drip and we will start nutritional support. (4) Gastrointestinal bleeding Current Visit: Yes Status: Acute Plan: Started on PPI drip. Will switch to twice a day. Gastroenterology consultation appreciated. EGD completed with no active bleeding. (5) Superior mediastinal mass with lumbar metastasis Current Visit: Yes Status: Acute Plan: Possible malignancy. Pulmonary feels it may be infiltrate. Continue with antibiotics. Reassess imaging after antibiotics completed. Possible metastasis to the lumbar spine. May need to consider hospice care. At her age and her performance status prognosis is poor and patient unlikely to benefit from chemotherapy. (6) History of CVA Current Visit: Yes Status: Acute Plan: Antiplatelet therapy, statin therapy, and strict blood pressure control (7) Metabolic syndrome; DM2/HTN/Dyslipidemia Current Visit: Yes Status: Acute Plan: Strict blood pressure and blood sugar control .
--- NOTE | 2023-11-30 19:32 | P.PN ---
Date of Service: 11/29/23 Subjective Patient is clinically doing well with no new complaints. Patient is more awake and alert today. We did try to do a spontaneous breathing trial but patient had apneic spells. Patient was placed back on mechanical ventilation. Hemoglobin has been stable. Monitoring hemodynamics closely. Minimal Levophed; titrating to off. Physical Examination - Vital Signs reviewed - Physical Exam General: Intubated Respiratory: Basilar crackles but otherwise clear Cardiovascular: Irregularly irregular rate and rhythm Gastrointestinal: Epigastric tenderness Musculoskeletal: No clubbing, No swelling Integumentary: No significant abnormalities noted Neurological: Intubated; lethargic Assessment And Plan - (1) Acute hypoxic respiratory failure with hypovolemic shock Current Visit: Yes Status: Acute Plan: Continue with vent management. Monitor oxygenation and will slowly wean off ventilator over the next 48 hours. Pulmonary consulted. Continue with IV hydration and blood transfusion received. Patient's hemoglobin is stable. However, patient with significant cardiomyopathy with ejection fraction of 22% so we will need to monitor patient's volume status closely. Patient remains on Levophed support-have weaned down 0.02 mics/kilogram/hour. Slowly weaning off at this time. (2) NSTEMI (non-ST elevated myocardial infarction)/atrial fibrillation/ischemic cardiomyopathy-EF 22% Onset Date: 11/16/14 Current Visit: No Status: Chronic Plan: Continue with medication for rate control. Continue with digoxin. May add amiodarone for rate control as patient with cardiomyopathy with an ejection fraction of 22%. Currently on the Lasix drip. Monitor hemodynamics and hold as needed. Holding anticoagulation because of lower GI bleeding. (3) Anion gap metabolic acidosis secondary to severe lactic acidosis Onset Date: 11/26/17 Current Visit: No Status: Chronic Plan: Patient's lactic acidosis has improved. Will go ahead and wean off of the bicarb drip and we will start nutritional support. (4) Gastrointestinal bleeding Current Visit: Yes Status: Acute Plan: Started on PPI drip. Will switch to twice a day. Gastroenterology consultation appreciated. EGD completed with no active bleeding. Monitor H&H. (5) Superior mediastinal mass with lumbar metastasis Current Visit: Yes Status: Acute Plan: Possible malignancy. Pulmonary feels it may be infiltrate. Continue with antibiotics. Reassess imaging after antibiotics completed. Possible metastasis to the lumbar spine. May need to consider hospice care. At her age and her performance status prognosis is poor and patient unlikely to benefit from chemotherapy. (6) History of CVA Current Visit: Yes Status: Acute Plan: Antiplatelet therapy, statin therapy, and strict blood pressure control (7) Metabolic syndrome; DM2/HTN/Dyslipidemia Current Visit: Yes Status: Acute Plan: Strict blood pressure and blood sugar control .
--- NOTE | 2023-11-30 19:50 | P.PN ---
Date of Service: 11/30/23 Subjective Patient did well with spontaneous breathing trial and will will plan to extubate patient. Patient is off of Levophed at this time. Hemoglobin is stable. Renal function is improving. Urine output is improved as well. We will plan to extubate. Physical Examination - Vital Signs reviewed - Physical Exam General: Intubated Respiratory: Clear bilaterally Cardiovascular: Irregularly irregular rate and rhythm Gastrointestinal: Epigastric tenderness Musculoskeletal: No clubbing, No swelling Integumentary: No significant abnormalities noted Neurological: Intubated; lethargic Assessment And Plan - (1) Acute hypoxic respiratory failure with hypovolemic shock Current Visit: Yes Status: Acute Plan: Patient did well with spontaneous breathing trial. And we will plan to extubate patient at this time. Family-patient's son Carlos- does not want patient reintubated. Patient will be a DNAR.. (2) NSTEMI (non-ST elevated myocardial infarction)/atrial fibrillation/ischemic cardiomyopathy-EF 22% Onset Date: 11/16/14 Current Visit: No Status: Chronic Plan: Continue with cardiac meds at this time. Prognosis is poor. (3) Anion gap metabolic acidosis secondary to severe lactic acidosis Onset Date: 11/26/17 Current Visit: No Status: Chronic Plan: Patient's lactic acidosis has improved. Plan to continue monitor lactic acid levels. (4) Gastrointestinal bleeding Current Visit: Yes Status: Acute Plan: PPI twice a day. Gastroenterology consultation appreciated. EGD completed with no active bleeding. Monitor H&H. (5) Superior mediastinal mass with lumbar metastasis Current Visit: Yes Status: Acute Plan: Possible malignancy. Possible metastasis to the lumbar spine. Son contemplating hospice care. At her age and her performance status prognosis is poor. (6) History of CVA Current Visit: Yes Status: Acute Plan: Antiplatelet therapy, statin therapy, and strict blood pressure control (7) Metabolic syndrome; DM2/HTN/Dyslipidemia Current Visit: Yes Status: Acute Plan: Strict blood pressure and blood sugar control .
[2023-12-01] MEDS: VANCOMYCIN 1.5 GM in NA CHLORIDE 0.9% 500 ML IVPB SCH (01:40)
[2023-12-01] MEDS: NA CHLORIDE 0.9% 100 ML ONE (04:05)
[2023-12-01] MEDS: FUROSEMIDE 100 MG/10 ML VIAL IV ONE (04:05)
[2023-12-01 05:55] LABS: Absolute Eosinophils 0.1 K/uL (0-0.5); Absolute Lymphocytes (CBC) 1.7 K/uL (0.7-4.9); Absolute Monocytes 0.8 K/uL (0.1-1.3); Absolute Neutrophil 5.6 K/uL (1.8-8.0); Basophils % 0.2 % (0-1.3); Eosinophils % 0.7 % (0-4.4); Hematocrit 28.8 % (36.0-45.0); Hemoglobin 9.2 g/dL (12.0-15.0); Lymphocytes % 20.8 % (15.3-44.8); MCH 31.2 pg (27.0-35.0); MCHC 32.1 g/dL (32.0-36.0); MCV 97.2 fL (80-100); MPV 8.9 fL (7.6-11.3); Monocytes % 9.8 % (3.3-12.3); Neutrophils % 68.5 % (41.7-73.7); Nucleated RBC Absolute Count 0.4 (0-0); Nucleated Red Blood Cells % 4.9 % (0-0); Platelets 179 thou/uL (152-406); RBC Red Blood Cell Count 2.97 M/uL (3.86-4.86); Red Cell Distribution Width 15.7 % (12.1-15.2)
[2023-12-01 06:14] LABS: Albumin/Globulin Ratio 0.7 (1.1-1.8); Anion Gap 6.7 mEq/L (5.0-15.0); Bilirubin Total 0.8 mg/dL (0.2-1.0); Globulin 2.9 g/dL (2.3-3.5); Magnesium 1.6 mg/dL (1.6-2.4); Potassium 3.7 mEq/L (3.5-5.1); Protein, Total 4.9 g/dL (6.4-8.2)
[2023-12-01 06:15] LABS: Troponin High Sensitivity 2157.2 pg/mL (<58.9)
[2023-12-01 06:19] LABS: Protime INR 1.17
--- NOTE | 2023-12-01 08:32 | RAD REPORT ---
EXAM DES[facility] 5:30 am CLINICAL HISTORY: pneumonia COMPARISON: Abdomen 1 View (KUB) dated 11/27/2023; Chest Single View dated 11/27/2023; Chest Single Vi ew dated 11/24/2023; Chest Single View dated 11/22/2023 TECHNIQUE: Portable AP view of the chest. FINDINGS: Stable patchy left basilar opacification, may reflect atelectasis or residual pneumonia. C entral venous congestion noted on the 11/24/2023 radiograph has since improved. No pneumothorax or e ffusion. The cardiomediastinal contours are unchanged. IMPRESSION: Stable left basilar airspace opacity as above.
[2023-12-01] MEDS: KCL 20 MEQ/100 mL IVPB 20 MEQ/100 ML BAG IV SCH (08:36)
[2023-12-01] MEDS: MAGNESIUM SULFATE 1 gm IVPB 1 GM/100 ML BAG IV ONE (08:36)
--- NOTE | 2023-12-01 10:40 | P.PN ---
Subjective Date of Service: 12/01/23 Chief Complaint: Hematochezia, hypotension on IV pressors, SD, resp failure, on mech vent Subjective: New changes (patient is extubated, off levophed) Review of Systems is unable to be obtained (patient repond to painful stimuli only) Physical Examination - Vital Signs Temperature: 98.1 F Blood Pressure: 113/58 Pulse: 94 Respirations: 19 Pulse Ox (%): 100 - Physical Exam General: Alert, In no apparent distress HEENT: Atraumatic, PERRLA, EOMI Neck: Supple, JVD not distended Respiratory: Clear to auscultation bilaterally, Normal air movement Cardiovascular: Regular rate/rhythm, Normal S1 S2 Gastrointestinal: Normal bowel sounds, No tenderness Musculoskeletal: No tenderness Integumentary: No rashes Neurological: Normal speech, Normal tone, Normal affect Lymphatics: No axilla or inguinal lymphadenopathy - Studies Medications List Reviewed: Yes Assessment And Plan - Current Problems (Diagnosis) (1) NSTEMI (non-ST elevated myocardial infarction) Current Visit: Yes Status: Acute Plan: Patient known to have complex multivessel CAD, got mild troponin leak, most likely secondary to acute respiratory failure. Patient got multiple co-morbidities and any kind of intervention will be high risk for her, especially with her chest mass, and stroke and respiratory failure. continue medical treatment with ASA, lovenox Patient echo shows low EF, patient is most likely in cardiogenic shock and respiratory failure continue levophed increase IV Lasix to 7.5 mg/hr palliative care is the best option for patient as again any intervention is too high risk. (2) Afib Onset Date: 11/16/14 Current Visit: No Status: Chronic Plan: Patient is currently in sinus, continue to monitor. Qualifiers: Atrial fibrillation type: chronic (3) HTN (hypertension) Onset Date: 11/26/17 Current Visit: No Status: Chronic Plan: BP is soft, continue to monitor. Qualifiers: Hypertension type: essential hypertension
--- NOTE | 2023-12-01 12:15 | P.PN ---
Subjective Date of Service: 12/01/23 Chief Complaint: Respiratory failure Subjective: Improving (Patient extubated dynamically stable) Review of Systems General: Weakness Respiratory: Shortness of Breath Physical Examination - Vital Signs Temperature: 96.8 F Blood Pressure: 120/53 Pulse: 63 Respirations: 11 Pulse Ox (%): 100 - Physical Exam General: Alert, Oriented x3 Respiratory: Clear to auscultation bilaterally Cardiovascular: No edema - Studies Medications List Reviewed: Yes Assessment And Plan - Current Problems (Diagnosis) (1) CHF (congestive heart failure), NYHA class IV Current Visit: Yes Status: Acute Plan: Patient has severe congestive heart failure with secondary pulmonary hypertension SEVERELY REDUCED LEFT VENTRICULAR SYSTOLIC FUNCTION. EJECTION FRACTION 15-20%. SEVERE GLOBAL HYPOKINESIS WITH INFERIOR, APICAL WALL AKINESIS. 2. DIASTOLIC DYSFUNCTION. 3. SEVERE PULMONARY HYPERTENSION. RIGHT VENTRICULAR SYSTOLIC PRESSURE >60 mmHg. 4. ELEVATED RIGHT ATRIAL FILLING PRESSURE >20 mmHg. 5. MODERATE MITRAL AND TRICUSPID REGURGITATION. Chest x-ray is clear And is on a Lasix drip the antibiotics no evidence of an infection x-ray is now clear hemoglobin stable EGD shows mild gastritis changed to pantoprazole once a day Qualifiers: Congestive heart failure type: systolic
[2023-12-01] MEDS: FUROSEMIDE 100 MG in NA CHLORIDE 0.9% 90 ML IV SCH (15:07)
[2023-12-01] MEDS ORDERED: FENTANYL CITR 100 MCG/2 ML IV PRN (17:23)
[2023-12-01] MEDS ORDERED: LORazepam 2 MG/ML VIAL IV PRN (17:23)
[2023-12-01] MEDS: NA CHLORIDE 0.9% 1,000 ML IV SCH (19:12)
--- NOTE | 2023-12-02 01:25 | P.PN ---
Date of Service: 12/01/23 Subjective Patient is very lethargic and difficult to arouse. For the most part she remains unresponsive. Patient's son, Carlos, medical power of tax attorney, wants to proceed with hospice care. Physical Examination - Vital Signs reviewed - Physical Exam General: Unresponsive and lethargic Respiratory: Diminished breath sounds bilaterally Cardiovascular: Irregularly irregular rate and rhythm Gastrointestinal: ND BS hypoactive Musculoskeletal: No clubbing, diffusely edematous Integumentary: bruising dfiffusely Neurological: staring straight ahead at times and patient is unresponsive for the most part and lethargic; not following commands Assessment And Plan - (1) Acute hypoxic respiratory failure with hypovolemic shock Current Visit: Yes Status: Acute Plan: Patient extubated but remains difficult to arouse. Patient's prognosis is poor. Patient's son wanted to proceed with hospice care. (2) NSTEMI (non-ST elevated myocardial infarction)/atrial fibrillation/ischemic cardiomyopathy-EF 22% Onset Date: 11/16/14 Current Visit: No Status: Chronic Plan: Continue with cardiac meds at this time. Prognosis is poor. (3) Anion gap metabolic acidosis secondary to severe lactic acidosis Onset Date: 11/26/17 Current Visit: No Status: Chronic Plan: Patient's lactic acidosis has improved. Proceeding with hospice care (4) Gastrointestinal bleeding Current Visit: Yes Status: Acute Plan: Hemoglobin stable. Will go ahead and continue with PPI for now and once we get hospice excepted patient will DC IV Protonix. (5) Superior mediastinal mass with lumbar metastasis Current Visit: Yes Status: Acute Plan: Possible malignancy. Possible metastasis to the lumbar spine. Hospice care. Not a candidate for any therapy (6) History of CVA Current Visit: Yes Status: Acute Plan: End of life care (7) Metabolic syndrome; DM2/HTN/Dyslipidemia Current Visit: Yes Status: Acute Plan: Strict blood pressure and blood sugar control .
[2023-12-02 04:25] VITALS: BMI 32.8
[2023-12-02] MEDS ORDERED: D50W 25 GM/50 ML SYRINGE IV PRN (08:02)
[2023-12-02] MEDS ORDERED: GLUCAGON 1 MG/VIAL IM PRN (08:02)
[2023-12-02] MEDS ORDERED: INSULIN GLARGINE 100 UNIT/ML SQ SCH (09:00)
[2023-12-02] MEDS ORDERED: PANTOPRAZOLE 40MG TABLET PO SCH (09:00)
[2023-12-02 09:16] LABS: Albumin 1.9 g/dL (3.4-5.0); Albumin/Globulin Ratio 0.6 (1.1-1.8); Anion Gap 7.7 mEq/L (5.0-15.0); Bilirubin Total 1.1 mg/dL (0.2-1.0); Globulin 3.1 g/dL (2.3-3.5); Potassium 3.7 mEq/L (3.5-5.1)
[2023-12-02 09:37] VITALS: BP 124/61; TEMP 97.8
[2023-12-02] MEDS ORDERED: INSULIN LISPRO 100 UNIT/ML SQ SCH (11:30)
[2023-12-02 12:17] VITALS: O2SAT 100
--- NOTE | 2023-12-02 13:27 | P.DS ---
Admission Date: 11/22/23 Discharge Date: 12/02/23 Disposition: HOSPICE-MEDICAL FACILITY Discharge Condition: FAIR Reason for Admission: Respiratory failure Brief History of Present Illness: Patient is 83 years of age was just transferred from [facility] to [facility] found to have some hematuria bloody stools sent here from the emergency room patient is currently nonverbal some respiratory distress short of breath bleeding noted Hospital Course: Patient is an 83 yo female with past medical history of Htn, DM II, HLD, obesity, breast cancer, and A. fib who presented to the ER after she had hematuria and GI bleed at the [facility]. Pt was sent to the ER for evaluation. On admission, pt was non-verbal and was in resp distress. We admitted pt for acute resp failure with hypoxia. We gave HFNC 20L with 24% fio2 and iv abx. CXR showed bilateral pleural effusion. We consulted IR for thoracentesis. CT chest showed superior mediastinal mass 6 x 4.8 cm. We consulted IR for CT guided biopsy. Pt later had respiratory distress and she was intubated. She was later extubated but now unable wake up. Her family decided to pursue comfort care. On admission, her troponins were elevated but Cardiology did not see any need for cardiac work up. We continued home med for other chronic medical problem. Her family members decided to pursue comfort care and avoid any aggressive or invasive procedure. The superior medicastinal mass is likely due to pbreast cancer mets. Pt was later discharge to inpatient hospice. Vital Signs/Physical Exam: Temp Pulse Resp BP Pulse Ox 97.8 F 85 18 124/61 99 12/02/23 08:00 12/02/23 08:00 12/02/23 08:00 12/02/23 08:00 12/02/23 08:00 Laboratory Data at Discharge: WBC 8.20 thou/uL (4.3-10.9) 12/01/23 05:18 Hgb 9.2 g/dL (12.0-15.0) L 12/01/23 05:18 Hct 28.8 % (36.0-45.0) L 12/01/23 05:18 Plt Count 179 thou/uL (152-406) 12/01/23 05:18 PT 13.0 SECONDS (9.4-12.5) H 12/01/23 05:18 INR 1.17 12/01/23 05:18 APTT 32.3 SECONDS (24.3-36.9) 11/22/23 16:07 Sodium 141 mEq/L (136-145) 12/02/23 08:35 Potassium 3.7 mEq/L (3.5-5.1) 12/02/23 08:35 BUN 49 mg/dL (7-18) H 12/02/23 08:35 Creatinine 1.19 mg/dL (0.55-1.02) H 12/02/23 08:35 Glucose 455 mg/dL (74-106) H* 12/02/23 08:35 Phosphorus 3.4 mg/dL (2.5-4.9) 11/30/23 04:58 Magnesium 1.6 mg/dL (1.6-2.4) 12/01/23 05:18 Total Bilirubin 1.1 mg/dL (0.2-1.0) H 12/02/23 08:35 AST 92 U/L (15-37) H 12/02/23 08:35 ALT 441 U/L (13-56) H 12/02/23 08:35 Alkaline Phosphatase 86 U/L (45-117) 12/02/23 08:35 Home Medications: Acetaminophen [Acetaminophen ER] 650 mg PO Q4H PRN 11/23/23 Apixaban [Eliquis] 5 mg PO BID 11/23/23 Atorvastatin Calcium [Lipitor] 80 mg PO BEDTIME 11/23/23 Buspirone HCl [Buspar] 10 mg PO Q6H PRN 11/23/23 Clopidogrel Bisulfate [Clopidogrel] 75 mg PO DAILY 11/23/23 Ezetimibe [Zetia*] 10 mg PO BEDTIME 11/23/23 Famotidine 20 mg PO DAILY 11/23/23 Furosemide 20 mg PO DAILY 11/23/23 Insulin Glargine,Hum.rec.anlog [Lantus] 8 units SQ DAILY 11/23/23 Insulin Lispro See Protocol SQ ACHS 11/23/23 Ipratropium/Albuterol Sulfate [Iprat-Albut 0.5-3(2.5) mg/3 ml] 1 inh IH Q4H PRN 11/23/23 Megestrol Acetate 20 ml PO DAILY 11/23/23 Midodrine HCl 2.5 mg PO TID 11/23/23 Sertraline HCl 50 mg PO BEDTIME 11/23/23 Tamsulosin HCl [Flomax] 0.4 mg PO DAILY 11/23/23 Diet: AHA Activity: Ad carlos Followup: Myron Campbell MD [Primary Care Provider] -
[2023-12-03] MEDS ORDERED: VANCOMYCIN 1.5 GM in NA CHLORIDE 0.9% 500 ML IVPB SCH (01:00)
--- NOTE | 2023-12-05 13:41 | EKG ---
Test Date: 2023-11-28 Test Time: 07:16:55 Checker Loader: TAE MEASUREMENT RESULTS: Intervals: Rate: 43 AL: 164 QRSD: 126 QT: 484 QTc: 408 [place]: P: 70 AL: 164 QRS: 22 T: 139 INTERPRETIVE STATEMENTS: Marked sinus bradycardia Nonspecific intraventricular block Cannot rule out Anterior infarct, age undetermined T wave abnormality, consider lateral ischemia Abnormal ECG Compared to ECG 11/22/2023 15:53:42 T-wave abnormality now present Sinus rhythm no longer present ST (T wave) deviation no longer present Myocardial infarct finding still present Possible ischemia still present Electronically Signed On 12-05-23 13:33:57 CDT by Burke Ford
== END 2023-12-02 13:38 | disposition hospice, inpatient (51) | DRG 208 ==
LOC: ER 15:39 → ERHOLD 18:51 → 4TH 20:17 → 3RD-ICU 11-23 10:45 → 2ND 11-25 17:40 → 3RD-ICU 11-27 09:27
PROVIDERS: ADMIT Internal Medicine Sleep Medicine; ATTEND Hospitalist
PROC: 5A0945A Assistance with Respiratory Ventilation, 24-96 Consecutive Hours, High Flow/Velocity Cannula (ICD-10-PCS; 2023-11-23)
PROC: 5A1945Z Respiratory Ventilation, 24-96 Consecutive Hours (ICD-10-PCS; principal; 2023-11-27)
PROC: 4A033R1 Measurement of Arterial Saturation, Peripheral, Percutaneous Approach (ICD-10-PCS; 2023-11-27)
PROC: 30233N1 Transfusion of Nonautologous Red Blood Cells into Peripheral Vein, Percutaneous Approach (ICD-10-PCS; 2023-11-27)
PROC: 0BH17EZ Insertion of Endotracheal Airway into Trachea, Via Natural or Artificial Opening (ICD-10-PCS; 2023-11-27)
PROC: 02HV33Z Insertion of Infusion Device into Superior Vena Cava, Percutaneous Approach (ICD-10-PCS; 2023-11-27)
PROC: 3E043XZ Introduction of Vasopressor into Central Vein, Percutaneous Approach (ICD-10-PCS; 2023-11-27)
PROC: 0DH68UZ Insertion of Feeding Device into Stomach, Via Natural or Artificial Opening Endoscopic (ICD-10-PCS; 2023-11-27)
PROC: 0DB68ZX Excision of Stomach, Via Natural or Artificial Opening Endoscopic, Diagnostic (ICD-10-PCS; 2023-11-28)
PROC: 0DB78ZX Excision of Stomach, Pylorus, Via Natural or Artificial Opening Endoscopic, Diagnostic (ICD-10-PCS; 2023-11-28)
DX: J96.01 Acute respiratory failure with hypoxia (principal); I21.A1 Myocardial infarction type 2; N17.0 Acute kidney failure with tubular necrosis; R57.1 Hypovolemic shock; J98.59 Other diseases of mediastinum, not elsewhere classified; J18.9 Pneumonia, unspecified organism; R57.0 Cardiogenic shock; K29.41 Chronic atrophic gastritis with bleeding; K29.81 Duodenitis with bleeding; E44.0 Moderate protein-calorie malnutrition; I69.354 Hemiplegia and hemiparesis following cerebral infarction affecting left non-dominant side; I48.20 Chronic atrial fibrillation, unspecified; C79.51 Secondary malignant neoplasm of bone; E87.20 Acidosis, unspecified; L89.152 Pressure ulcer of sacral region, stage 2; I69.320 Aphasia following cerebral infarction; I50.9 Heart failure, unspecified; I11.0 Hypertensive heart disease with heart failure; E11.9 Type 2 diabetes mellitus without complications; I27.20 Pulmonary hypertension, unspecified; E78.5 Hyperlipidemia, unspecified; I25.5 Ischemic cardiomyopathy; I08.1 Rheumatic disorders of both mitral and tricuspid valves; K21.9 Gastro-esophageal reflux disease without esophagitis; E88.810 Metabolic syndrome; I25.2 Old myocardial infarction; I25.10 Atherosclerotic heart disease of native coronary artery without angina pectoris; R31.9 Hematuria, unspecified; Z66 Do not resuscitate; Z88.0 Allergy status to penicillin; Z88.2 Allergy status to sulfonamides; Z60.2 Problems related to living alone; Z51.5 Encounter for palliative care; Z88.1 Allergy status to other antibiotic agents; Z79.4 Long term (current) use of insulin; Z85.3 Personal history of malignant neoplasm of breast; Z88.8 Allergy status to other drugs, medicaments and biological substances; Z68.33 Body mass index [BMI] 33.0-33.9, adult; Z90.11 Acquired absence of right breast and nipple; Z79.01 Long term (current) use of anticoagulants; Z79.02 Long term (current) use of antithrombotics/antiplatelets; Z79.82 Long term (current) use of aspirin; Z90.49 Acquired absence of other specified parts of digestive tract; Z79.84 Long term (current) use of oral hypoglycemic drugs; Z79.899 Other long term (current) drug therapy; Z90.710 Acquired absence of both cervix and uterus
CPT/HCPCS: 36415; 36430; 36600; 70450; 71045; 71275; 74018; 80048; 80053; 80076; 80202; 82607; 82805; 82947; 83540; 83605; 83735; 83880; 84100; 84132; 84145; 84439; 84443; 84484; 85014; 85018; 85025; 85044; 85610; 85730; 86850; 86900; 86901; 86920; 86922; 87040; 88305; 88312; 93005; 93306; 94002; 94003; 94660; 94760; 99284; J0171; J0612; J0696; J1160; J1265; J1650; J1720; J1940; J2470; J2704; J3010; J3475; J3480; J7030; J7040; J7042; J7050; J7060; P9016; P9047; Q9967

== ENCOUNTER 2023-12-02 13:38 | Inpatient (IN) | payer OTHER ==
[2023-12-02 15:19] VITALS: BMI 32.8
[2023-12-02] MEDS ORDERED: ACETAMINOPHEN 650MG/RECT SUPP PR PRN (15:20)
[2023-12-02] MEDS ORDERED: ONDANSETRON 4 MG/2 ML VIAL IV PRN (15:20)
[2023-12-02] MEDS ORDERED: BISACODYL 10 MG RECTAL SUPP PR PRN (15:20)
[2023-12-02] MEDS ORDERED: HYOSCYAMINE SULF 0.125 MG TAB SL PRN (15:25)
[2023-12-02] MEDS: MORPHINE 2 MG/ML SYR IV PRN (15:45)
[2023-12-02] MEDS: SCOPOLAMINE HYDROBROMIDE PATCH TD SCH (16:42)
[2023-12-03 21:33] VITALS: O2SAT 96
[2023-12-05] MEDS: LORazepam 2 MG/ML VIAL IV PRN (12:01)
[2023-12-07] MEDS: MORPHINE 2 MG/ML SYR IV SCH (12:02)
[2023-12-07] MEDS ORDERED: MORPHINE 2 MG/ML SYR IV SCH ×2 (12:05→14:00)
[2023-12-07] MEDS ORDERED: MORPHINE 2 MG/ML SYR IV PRN (12:07)
[2023-12-09 08:12] VITALS: BP 62/51; TEMP 97.8
== END 2023-12-09 13:35 | disposition hospice, inpatient (51) | DRG 951 ==
LOC: 3RD-ICU 13:38 → 2ND 12-03 11:48
PROVIDERS: ADMIT Internal Medicine Hematology & Oncology; ATTEND Internal Medicine Hematology & Oncology
DX: Z51.5 Encounter for palliative care (principal)
CPT/HCPCS: J2270